=== PATIENT | female | born 1950 | race Caucasian/White ===

== ENCOUNTER → 2018-03-26 06:07 | Outpatient (CLI) | payer MEDICARE, MEDICAID, SELFPAY ==
--- NOTE | 2018-03-26 13:12 | STRESSREP ---
Stress Test Report Date: 03/26/2018 Procedure: Pharmacologic stress nuclear imaging study Indications: Paroxysmal atrial fibrillation Consent: Per the patient Procedure: The patient underwent pharmacologic (Regadenoson) evaluation with a peak heart rate of 84 beats per minute (54 predicted maximal heart rate) and a peak blood pressure of 150/90 mmHg. The baseline ECG demonstrated normal sinus rhythm. The peak pharmacologic ECG demonstrated no obvious ECG changes. There were no cardiac dysrhythmias pretest, during pharmacologic infusion, or recovery. There was no complaint of chest discomfort during pharmacologic infusion or recovery. The examination was discontinued secondary to completion of protocol. Impression: 1. Pharmacologic (Regadenoson) evaluation 2. Peak pharmacologic ECG with no obvious ECG changes. 3. There were no cardiac dysrhythmias pretest, during pharmacologic infusion, or recovery 4. Nuclear images pending Myocardial perfusion imaging study: Technique: The patient was injected with 14.6 millicuries of technetium 99m Cardiolite and subsequently rest SPECT Cardiolite nuclear imaging was obtained in the horizontal long, vertical long, and short axis views. The patient underwent pharmacologic (Regadenoson) evaluation with a peak heart rate of 84 beats per minute (54 % percent predicted maximal heart rate) and a peak blood pressure of 150/90 mmHg. The patient was injected with 45 millicuries of technetium 99m Cardiolite and subsequently stress SPECT Cardiolite nuclear imaging was obtained in the horizontal long, vertical long, and short axis views. A gated Cardiolite study at peak stress was obtained. Interpretation: Rest and stress SPECT Cardiolite nuclear imaging status post realignment, normalization, and attenuation correction demonstrate a small area of subtle diminished tracer uptake near the apical segments without significant change between rest and stress.. There is end systolic thickening and brightening. The gated Cardiolite study demonstrates myocardial thickening and inward wall motion. The reported LVEF is 74%. Impression: 1. Rest and stress SPECT Cardiolite nuclear imaging demonstrates a area of subtle diminished tracer uptake near the apical segments without significant change between rest and stress appearing compatible with physiologic apical thinning with no myocardial perfusion changes consider diagnostic for associated stress-induced myocardial ischemia or previous myocardial injury/infarction. 2. The gated Cardiolite study reports an LVEF of 74%. This note was generated with uromovie software. It may contain incorrect words, spelling, and punctuation that were not noted in checking the note before signing.
--- NOTE | 2018-03-26 13:29 | STRESSREP_ITS ---
Stress Test Report Date: 03/26/2018 Procedure: Pharmacologic stress nuclear imaging study Indications: Paroxysmal atrial fibrillation Consent: Per the patient Procedure: The patient underwent pharmacologic (Regadenoson) evaluation with a peak heart rate of 84 beats per minute (54 predicted maximal heart rate) and a peak blood pressure of 150/90 mmHg. The baseline ECG demonstrated normal sinus rhythm. The peak pharmacologic ECG demonstrated no obvious ECG changes. There were no cardiac dysrhythmias pretest, during pharmacologic infusion, or recovery. There was no complaint of chest discomfort during pharmacologic infusion or recovery. The examination was discontinued secondary to completion of protocol. Impression: 1. Pharmacologic (Regadenoson) evaluation 2. Peak pharmacologic ECG with no obvious ECG changes. 3. There were no cardiac dysrhythmias pretest, during pharmacologic infusion, or recovery 4. Nuclear images pending Myocardial perfusion imaging study: Technique: The patient was injected with 14.6 millicuries of technetium 99m Cardiolite and subsequently rest SPECT Cardiolite nuclear imaging was obtained in the horizontal long, vertical long, and short axis views. The patient underwent pharmacologic (Regadenoson) evaluation with a peak heart rate of 84 beats per minute (54 % percent predicted maximal heart rate) and a peak blood pressure of 150/90 mmHg. The patient was injected with 45 millicuries of technetium 99m Cardiolite and subsequently stress SPECT Cardiolite nuclear imaging was obtained in the horizontal long, vertical long, and short axis views. A gated Cardiolite study at peak stress was obtained. Interpretation: Rest and stress SPECT Cardiolite nuclear imaging status post realignment, normalization, and attenuation correction demonstrate a small area of subtle diminished tracer uptake near the apical segments without significant change between rest and stress.. There is end systolic thickening and brightening. The gated Cardiolite study demonstrates myocardial thickening and inward wall motion. The reported LVEF is 74%. Impression: 1. Rest and stress SPECT Cardiolite nuclear imaging demonstrates a area of subtle diminished tracer uptake near the apical segments without significant change between rest and stress appearing compatible with physiologic apical thinning with no myocardial perfusion changes consider diagnostic for associated stress-induced myocardial ischemia or previous myocardial injury/ infarction. 2. The gated Cardiolite study reports an LVEF of 74%. This note was generated with Neuropure software. It may contain incorrect words, spelling, and punctuation that were not noted in checking the note before signing.
== END ==
PROVIDERS: Family Provider Family Medicine; PCP Family Medicine; Visit Provider Internal Medicine Cardiovascular Disease
DX: Z01.810 Encounter for preprocedural cardiovascular examination (principal); Z01.818 Encounter for other preprocedural examination; I48.0 Paroxysmal atrial fibrillation
CPT/HCPCS: 78452; 93017; A9500; A4216; J2785

== ENCOUNTER → 2019-06-13 09:25 | Outpatient (CLI) | payer MEDICARE, MEDICAID, SELFPAY ==
[2019-06-13 10:53] LABS: AUTO B FLUID DILUENT BKGD CT WBC <0.1 RBC <0.01 (W<.1,R<.01); Appearance /Synovial Fluid Cloudy (CLEAR)
[2019-06-13 10:55] LABS: RBC /Synovial Fluid 0.023 10^6/uL (0)
[2019-06-13 10:57] LABS: Synovial Fld Mononuclear WBC # 1.948 10^3/ul; Synovial Fld Mononuclear WBC % 8.1 %; Synovial Fld Polynuclear WBC % 91.9 %
[2019-06-13 11:13] LABS: Body Fluid QC Type(s) BF3Q; Color / Synovial Fluid Yellow (Pale Yellow)
[2019-06-13 11:25] LABS: Lymph 3 %; Monocyte /Synovial Fluid 5 %; Neutrophil 92 % (0-25)
[2019-06-14 15:29] LABS: Pathologist Comment Reviewed
== END ==
PROVIDERS: Family Provider Nurse Practitioner Family; PCP Nurse Practitioner Family; Referring Provider Specialist; Visit Provider Specialist
DX: T84.84XA Pain due to internal orthopedic prosthetic devices, implants and grafts, initial encounter (principal)
CPT/HCPCS: 87070; 87075; 87205; 89050; 89051

== ENCOUNTER 2019-07-06 09:50 | Inpatient (IN) | payer MEDICARE, MEDICAID, SELFPAY ==
[2019-06-22 10:14] VITALS: BP 133/66; PULSE 48; RESP 16; TEMP 36.1; O2SAT 100; BMI 33.4
[2019-06-22 12:45] LABS: International Normalized Ratio 1.9; Prothrombin Time (Protime)PT. 22.1 SECONDS (11.7-14.9)
[2019-06-22 12:46] LABS: Partial Thromboplast Time 58.1 Seconds (24.1-36.2)
[2019-06-22 12:53] LABS: AST(SGOT) 12 U/L (15-37); Alanine Aminotransfer ALT/SGPT 12 U/L (13-56); Albumin, Serum 3.3 g/dL (3.2-5.0); Alkaline Phosphatase 108 U/L (45-117); Anion Gap 8 (5-15); BUN 20 mg/dL (7-18); BUN/Creat Ratio 26.6 RATIO (10-20); Calcium,Total 9.4 mg/dL (8.5-10.1); Chloride 106 mmol/L (98-107); Creatinine, Serum 0.75 mg/dL (0.55-1.02); EST Glomerular Filtration Rate 81 mL/min (>60); Est Glom Filt Rate - Afr Amer 98 mL/min (>60); Estimated Creatinine Clearance 50.41 ml/min; Globulin 4.5 g/dL (2.2-4.2); Glucose 92 mg/dL (74-106); Potassium 4.3 mmol/L (3.5-5.1); Protein, Total 7.8 g/dL (6.4-8.2); Sodium Level 142 mmol/L (136-145)
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
[2019-07-06] VITALS (14 sets, daily range): BP systolic 81–146; BP diastolic 47–76; PULSE 54–66; RESP 16–18; TEMP 36.2–37.3; O2SAT 97–100; BMI 33.4
[2019-07-06] MEDS: Gabapentin 600 MG Tablet PO (10:41)
[2019-07-06] MEDS: Acetaminophen 500 MG Tablet 1000 MG PO ×2 (10:41→20:40)
[2019-07-06] MEDS: Scopolamine 1mg/72hr Patch 1 PATCH TRANSDERM. (10:43)
[2019-07-06 10:55] LABS: Bedside Glucose 94 mg/dL (70-110)
[2019-07-06] MEDS: Magnesium Sulfate 4gm/100mL 4 GM/100 ML IV.SOLN. IV (11:00)
[2019-07-06] MEDS: Lactated Ringers 1,000 ML 100 ML IV (11:03)
[2019-07-06 12:18] LABS: International Normalized Ratio 1.1; Prothrombin Time (Protime)PT. 14.2 SECONDS (11.7-14.9)
[2019-07-06] MEDS: Cefazolin 2 GM in 0.9% Normal Saline 100 ML IV (12:44)
[2019-07-06] MEDS: Vancomycin IV 1,000 MG/20 ML Vial 6000 MG OPERA.SITE (14:43)
[2019-07-06] MEDS: Cefazolin 1 GM/5 ML Vial 2 GM OPERA.SITE (14:43)
--- NOTE | 2019-07-06 15:15 | OP.PCM_ITS ---
Report of Operation Date of Procedure: 07/06/19 Pre-Operative Diagnosis: Infected left total knee replacement Post-Operative Diagnosis: Infected left total knee replacement Surgery/Procedure Performed:: Explant left total knee with placement of articulating antibiotic spacer. Placement of nonbiodegradable antibiotic delivery system left knee Description of Surgical Findings:: Articulating spacer was placed. Intraoperatively there was florid synovitis with cloudy fluid consistent with purulence pier master assistant: Adam Marie Type of Anesthesia:: Spinal Anesthesiologist: Hardik Palafox Special Medications: 2 g Ancef Specimen's removed: 3 separate specimens were sent to microbiology Estimated Blood Loss (mL): 150 Fluids Replaced: 1800 mL crystalloid Description of Procedure: 68-year-old female with previous left total knee replacement. Patient presented to my office with x-rays consistent with gross loosening of the tibia. Blood work was checked the patient's ESR and CRP are elevated. Aspiration was performed showing 18,000 white blood cells with 92% PMNs with cloudy fluid. Based on this patient met 3 out of 5 MSIS criteria for infection despite having a negative culture. Based on these criteria I did recommend a two-stage r evision of the knee. Risks and benefits were discussed the patient including but not limited to blood loss, DVTs, PEs, neurovascular damage, infection, general risk of anesthesia including loss of life, arthrofibrosis and need for multiple debridements. Patient never stated understanding was able to sign informed consent. On there is procedure patient's left knee was marked in the preoperative area. Patient was brought back to the operating room with her transfer the table in the supine position. Anesthesia assumed control of the C-spine and airway. Patient was set up for a spinal after the spine was completed placed back in the supine position and all bony prominences were identified and well-padded. A bump was placed under the left hip and tourniquet was placed in the left upper t high. Anesthesia remained in control of the C-spine airway throughout the remainder the procedure. Left lower externally was then prepped in a sterile fashion with surgeon scrubbed. Upon reentering the room the left lower extremity was draped in sterile fashion a timeout was called. Everyone agreed upon the side, the site, the procedure to be performed, patient's identity and antibiotics given. Once this was completed Esmarch bandage was used to exsanguinate the extremity and tourniquet was placed at the 250 mmHg. Using the previous incision and extending 1 cm proximally distally the exposure was made. Sharp dissection was taken out the skin subtenons tissues. Bovie dissection was used to help raise medial lateral flaps appropriately. Once we identified the previous arthrotomy due to nonabsorbable sutures a standard medial parapatellar arthrotomy was made. Upon entering the joint patient had cloudy fluid and florid synovitis. We started by performing a aggressive synovectomy. Starting in the lateral compartment in the suprapatellar pouch the medial compartment. Once we had performed our initial complete synovectomy he was flexed up and osteotome was used to remove the polyethylene. Once the polyethylene was removed we are able to complete medial lateral gutter synovectomies. Knee was flexed up and osteotomes and TPS saw were used to sequentially break up the bone cement interface of the femur and the femoral component was removed. Once this was completed we may clean up cuts on the distal femur and removed all excess cement. Once this was done we directed our attention to the tibia. The tibia was grossly loose and easily removed using an osteotome. Once the tibia was removed membrane was removed and the proximal tibia cleanup cut was made. We then used a bur and curet to debride the remainder of the membrane from around the keel. Once a cleanup cut was made the alignment was checked and found to be appropriate. New was then placed in extension and using a lamina computer video game designer both extension and flexion we were able to debride the remainder of the synovium in the posterior knee. Once this was completed the knee was placed in extension and saw was used to remove the patella button. The bur was removed to use the patella pegs. Once this was completed we again directed our attention back to the tibia and femur and reamed the canal to 15 mm. Once this was completed my physician academic support assistant irrigated out the wound with 6 L of normal saline with low-pressure lavage while I made cement dowels for the femur and tibia. These dowels contained one third of the antibiotics for the cement. (Total antibiotics was 4.8 g tobramycin, 6 g vancomycin and 2 g Ancef). The dowel was then placed on the back table and allowed to cure. Once this was completed we then trialed for the antibiotic spacer. A size 6 femur was selected as this was removed and a size 4 tibia was selected as this for the tibia the best. We trialed up to a size 19 mm CR poly- which gave us a good fit in flexion and extension. The polyethylene was open and the backside was burred making Esmarch for the cement. The femoral component was then opened. Once this was completed a second back to cement with the remainder of the antibiotics was mixed in order to fix the components in place. The dowels were placed in the canal after the tourniquet was let down hemostasis was obtained using aqua Sergio coagulation. Knee was then flexed up and the tibia was cemented into place over the dowel which was in the canal and then the femur was cemented into place over the dialysis in the canal. Excess cement was removed and he was placed in extension for the cement cured. Once the cement cured with the knee in extension a lateral drain was placed. Once this drain was placed PDS suture was used to close the arthrotomy. 2-0 Vicryl was used to close the skin final skin closure was done with jalen. Sterile compressive dressing was placed. Patient was placed in a knee immobilizer and then awakened by anesthesia. Patient was then transferred to the PACU in stable condition. Postop plan: Infectious disease will be consulted. Patient was placed on Ancef overnight. She will spend 6 weeks on IV antibiotics at which time we will place her on antibiotic holiday and if it appears the infection is cleared we will proceed with replantation of a new knee replacement. Patient will remain in the knee immobilizer for 2 weeks. At her 2-week postop visit she is doing well with her wound healing we will begin range of motion exercises. She will remain toe- touch weightbearing for 2 weeks and partial weightbearing 50% after that until the new knee is completed. My physician academic support assistant was a vital part of this case. He was important in appropriate retraction during the case, and protection of soft tissues during bony cuts. His intimate knowledge of the case and my steps aided in safe and expedient completion of the procedure as well as appropriate position of the leg during the case. He was also vital in assisting with closure under my direct supervision. Grafts/Implants Used: An: Triathlon size 6 distal femur, 4 x 19 mm CR polyethylene tibia - Complications No intraoperative complications - Admit VTE Documentation VTE Present on Admission: No VTE Mechan Device Prophylaxis: SCD's, Thigh High YOLANDA Hose VTE Pharm Prophylaxis ordered?: Yes
[2019-07-06] MEDS: Lactated Ringers 1,000 ML 999 ML IV (15:43)
--- NOTE | 2019-07-06 16:00 | RAD_ITS ---
STUDY: X-RAY - LEFT KNEE REASON FOR EXAM: Female, 68 years old. Postop evaluation of total knee replacement. TECHNIQUE: 3 view(s) of the knee. COMPARISON: None. FINDINGS: Status post total knee arthroplasty revision. The femoral and tibial components are located with no periprosthetic abnormalities. The patella has been resurfaced and is normally located. Normal postoperative soft tissue changes. 1 surgical drain at the operative site. Skin incision closed with jalen. RAD/Knee 1 or 2 Views IMPRESSION: Status post total knee arthroplasty revision with no untoward bone, joint or hardware findings. Electronically Signed: May Mejía MD at 16:44 EDT , Service support ,
[2019-07-06] MEDS: Lactated Ringers 1,000 ML 125 ML IV ×2 (16:26→18:19)
[2019-07-06 16:31] LABS: Prothrombin Time Fingerstick 27.5 SEC (11.9-14.4)
[2019-07-06] MEDS: Ketorolac 15 MG/ML Vial IV (18:18)
[2019-07-06] MEDS: oxyCODONE 5 MG Tablet PO (20:15)
[2019-07-06] MEDS: Cefazolin 1 GM/50 ML BAG IV (20:15)
[2019-07-06] MEDS: Senna/Docusate Sodium 1 Tablet 2 TABLET PO (20:39)
[2019-07-06] MEDS: Sotalol Hydrochloride 80 MG Tablet PO (20:39)
[2019-07-06] MEDS: cycloBENZAPRine HCl 5 MG TABLET 10 MG PO (20:40)
[2019-07-06] MEDS: Sertraline 50 MG Tablet PO (20:41)
[2019-07-07] MEDS: oxyCODONE 5 MG Tablet PO ×2 (00:22→20:08)
[2019-07-07 03:22] VITALS: BP 109/53; PULSE 61; RESP 16; TEMP 36.4; O2SAT 98
[2019-07-07 03:30] VITALS: PULSE 61
[2019-07-07] MEDS: Cefazolin 1 GM/50 ML BAG IV (04:36)
[2019-07-07] MEDS: Acetaminophen 500 MG Tablet 1000 MG PO ×3 (05:41→20:07)
[2019-07-07] MEDS: 0.9% NaCl Peripheral Flush Adult/Peds IV ×3 (05:41→11:58)
[2019-07-07] MEDS: Ketorolac 15 MG/ML Vial IV ×2 (05:41→11:58)
[2019-07-07 05:48] LABS: Hematocrit 30.2 % (37-47); Hemoglobin 9.1 g/dL (12.0-15.0); Mean Corp Hgb Conc 30.1 g/dL (32-36); Mean Corpuscular Hgb 26.1 pg (27.0-32.0); Mean Corpuscular Volume 86.5 fL (81-99); Mean Platelet Vol. 9.4 fl (6.2-12.0); Platelet Count 193 K/mm3 (150-450); RBC Distribution Width CV 15.7 % (11.6-14.6); RBC Distribution Width SD 49.2 fl (35.1-43.9); Red Blood Count 3.49 M/mm3 (4.2-5.4); White Blood Count 7.2 K/mm3 (4.4-11.0)
[2019-07-07 06:30] LABS: Anion Gap 7 (5-15); BUN 12 mg/dL (7-18); BUN/Creat Ratio 18.5 RATIO (10-20); Calcium,Total 7.8 mg/dL (8.5-10.1); Chloride 107 mmol/L (98-107); Creatinine, Serum 0.65 mg/dL (0.55-1.02); EST Glomerular Filtration Rate 96 mL/min (>60); Est Glom Filt Rate - Afr Amer 117 mL/min (>60); Estimated Creatinine Clearance 50.41 ml/min; Glucose 124 mg/dL (74-106); Potassium 4.4 mmol/L (3.5-5.1); Sodium Level 142 mmol/L (136-145)
--- NOTE | 2019-07-07 08:15 | PCM.PN.ORT ---
Subjective: The patient was sitting in bedside chair upon examination. Patient denies any chest pain, shortness of breath, dizziness, lightheadedness, nausea or vomiting, or calf pain. Pain is controlled on medications. No adverse overnight events. Patient is very pleased with outcome of surgery at this point. Her pain is very well controlled. Patient has been tolerating the knee immobilizer. She does have Hemovac drain with output of 570 mL. Consult has been placed for infectious disease for 6 weeks IV antibiotics. Objective: Vital signs stable and afebrile. Patient is able to plantarflex and dorsiflex actively. Sensation is intact to light touch to saphenous, sural, superficial and deep peroneal, and tibial distribution. Dressing is clean dry and intact. Hemovac drain in place: No current output. Patient has had 570 mL output since yesterday Negative Homans bilaterally, negative signs and symptoms of DVT. - Physical Exam General: Alert, Oriented x3, Cooperative, No apparent distress Vital Signs Temp Pulse Resp BP Pulse Ox 97.5 F L 61 16 109/53 L 98 07/07/19 03:22 07/07/19 03:30 07/07/19 03:22 07/07/19 03:22 07/07/19 03:22 Oxygen Flow Rate (L/min) 6 Oxygen Delivery Method Room Air Weight: 94 kg Body Mass Index (BMI) 33.4 Intake and Output for Last 24 Hours 07/05/19 07/06/19 07/07/19 23:59 23:59 23:59 Intake Total 2737.09 / 3417.09 1486.08 / 1486.08 Output Total 250 / 1150 2230 / 2230 Balance 2487.09 / 2267.09 -743.92 / -743.92 Laboratory Tests Past 24 Hrs 07/06/19 07/06/19 07/07/19 11:45 12:00 05:25 WBC 7.2 RBC 3.49 L Hgb 9.1 L Hct 30.2 L MCV 86.5 MCH 26.1 L MCHC 30.1 L RDW Std Deviation 49.2 H RDW Coeff of Pat 15.7 H Plt Count 193 MPV 9.4 POC PT 27.5 H PT 14.2 INR 1.90 1.1 Sodium Potassium Chloride Carbon Dioxide Anion Gap BUN Creatinine Estim Creat Clear Calc Est GFR (MDRD) Af Amer Est GFR (MDRD) Non-Af BUN/Creatinine Ratio Glucose Calcium 07/07/19 05:25 WBC RBC Hgb Hct MCV MCH MCHC RDW Std Deviation RDW Coeff of Pat Plt Count MPV POC PT PT INR Sodium 142 Potassium 4.4 Chloride 107 Carbon Dioxide 28.0 Anion Gap 7 BUN 12 Creatinine 0.65 Estim Creat Clear Calc 50.41 Est GFR (MDRD) Af Amer 117 Est GFR (MDRD) Non-Af 96 BUN/Creatinine Ratio 18.5 Glucose 124 H Calcium 7.8 L POC Glucose 07/06/19 10:36 POC Glucose 94 Medical Necessity - Tobacco Use Smoking Status: Never smoker Tobacco Use: Non-smoker Assessment/Plan 1. S/P explant left total knee with placement of articulating antibiotic spacer POD #1 2. Continue Pain Medications: Tylenol and OxyIR 3. DVT Prophylaxis: Patient has been placed back on her Xarelto. Patient has underlying atrial fibrillation and takes 20 mg Xarelto daily 4. PT/OT: Patient will remain toe-touch weightbearing for 2 weeks with knee immobilizer. Okay to loosen knee immobilizer while at rest. We will begin partial weightbearing 50% after 2 weeks. 5. H & H: 9.1/30.2, asymptomatic 6. Encouraged Incentive Spirometry 7. Infectious disease consult: Plan will be for 6 weeks IV antibiotics followed by 2-week antibiotic holiday. Patient will require placement of PICC line. 8. Continue postoperative medical management per medicine 9. Continue with Hemovac drain: Plan will be for possible removal tomorrow. Current output 570 mL since yesterday. 10. Disposition: Patient does wish to try to go home upon discharge. Patient will most likely require home health care for antibiotics for the next 6 weeks. Case management will be involved with appropriate discharge planning.
[2019-07-07 08:34] VITALS: BP 118/45; PULSE 63; RESP 16; TEMP 36.6; O2SAT 98
[2019-07-07] MEDS: Senna/Docusate Sodium 1 Tablet 2 TABLET PO (08:50)
[2019-07-07] MEDS: Sotalol Hydrochloride 80 MG Tablet PO ×2 (08:50→20:09)
[2019-07-07] MEDS: Famotidine 20 MG Tablet PO (08:50)
--- NOTE | 2019-07-07 08:52 | NURSING ---
Addendum entered by Brit Crowe 07/07/19 16:08: same completed this AM. Original Note: pt requesting to have scop patch removed this morning. denies any nausea at all since arrival.
--- NOTE | 2019-07-07 09:29 | PCA ---
pt cleaned up last night pt is joint camp pt
--- NOTE | 2019-07-07 10:34 | PCM.HP.ID ---
Problem List (1) Infection of prosthetic left knee joint Status: Acute Reason for Consult: PJI Consulted by: Dr. Clements History of Present Illness: The patient is a 68 year old F with L knee replacement a year ago at [facility], had chronic, progressive pain and swelling ever since then. Incision healed well. No redness. No recent abx. Had 2-3 episodes of chills, sweats in past few weeks. Pain worsened with PT. Saw ortho here for 2nd opinion, xray and aspiration done. Taken to OR 07/[address] Clements for spacer placement. Pain controlled, feeling ok. Full ROS performed and neg except as noted above. - Medical History Allergies/Adverse Reactions: Allergies diazepam [From Valium] Allergy (Verified 06/22/19 10:02) Other PARANOIA latex Allergy (Verified 06/22/19 10:02) Rash lisinopril Allergy (Verified 06/22/19 10:02) Anaphylaxis morphine Allergy (Verified 06/22/19 10:02) Rash Home Medications: Ambulatory Orders Medication Instructions Recorded Jordan/D3/Mag11/Zinc/Development Technician/Nilton/Bor 1 ea PO DAILY 06/22/19 [Caltrate 600+D Plus Tablet] Cyclobenzaprine HCl 10 mg PO QHS 06/22/19 Hydrochlorothiazide [Hctz] 25 mg PO QODAY 06/22/19 Lutein 6 mg PO DAILY 06/22/19 Potassium Chloride 10 meq PO DAILY 06/22/19 Rivaroxaban [Xarelto] 20 mg PO DAILY 06/22/19 Sertraline HCl [Zoloft] 50 mg PO DAILY 06/22/19 Sotalol HCl [Sotalol] 80 mg PO BID 06/22/19 traMADol [Ultram (G)] 50 mg PO Q6H PRN PRN 06/22/19 Ceftriaxone 2 gm IV Q24 40 Days #40 vial 07/07/19 Vancomycin/0.9 % Sod Chloride 1.5 gm IV Q12H 40 Days #80 07/07/19 [Vanco 1.5 gm/250 ml-0.9% NaCl] plast..bag - Social History Tobacco Use: non-smoker Drug Use: none Vital Signs Temp Pulse Resp BP Pulse Ox 98 F 63 16 118/45 L 98 07/07/19 08:34 07/07/19 08:34 07/07/19 08:34 07/07/19 08:34 07/07/19 08:34 Oxygen Flow Rate (L/min) 6 Oxygen Delivery Method Room Air Weight: 94 kg Body Mass Index (BMI) 33.4 Microbiology Past 72 Hours 07/06/19 15:44 Gram Stain - Final Tissue - Knee 07/06/19 15:44 Gram Stain - Final Tissue - Knee 07/06/19 15:44 Gram Stain - Final Tissue - Knee Laboratory Tests Past 24 Hrs 07/06/19 07/06/19 07/07/19 11:45 12:00 05:25 WBC 7.2 RBC 3.49 L Hgb 9.1 L Hct 30.2 L MCV 86.5 MCH 26.1 L MCHC 30.1 L RDW Std Deviation 49.2 H RDW Coeff of Pat 15.7 H Plt Count 193 MPV 9.4 POC PT 27.5 H PT 14.2 INR 1.90 1.1 Sodium Potassium Chloride Carbon Dioxide Anion Gap BUN Creatinine Estim Creat Clear Calc Est GFR (MDRD) Af Amer Est GFR (MDRD) Non-Af BUN/Creatinine Ratio Glucose Calcium 07/07/19 05:25 WBC RBC Hgb Hct MCV MCH MCHC RDW Std Deviation RDW Coeff of Pat Plt Count MPV POC PT PT INR Sodium 142 Potassium 4.4 Chloride 107 Carbon Dioxide 28.0 Anion Gap 7 BUN 12 Creatinine 0.65 Estim Creat Clear Calc 50.41 Est GFR (MDRD) Af Amer 117 Est GFR (MDRD) Non-Af 96 BUN/Creatinine Ratio 18.5 Glucose 124 H Calcium 7.8 L - Other Studies Radiology: [] reviewed Other Studies: [] Route of nutrition/ use of supplements: [] Nutritional Intake: [] IV Site: [] Valentin Catheter: [] - Physical Exam General: Alert, Oriented x3, Cooperative, No apparent distress HEENT: Atraumatic, PERRLA, EOMI Neck: Supple, No Nodes Lungs: Clear to auscultation, Normal air movement Cardiovascular: Regular rate, Regular Rhythm, No murmurs Abdomen: Soft, Non Tender, Non-Distended Skin: Incision - LLE wrapped IV Site: Peripheral, without redness Musculoskeletal: No Tenderness to Palpation of Joints or Extremities Neurological: Cranial nerves II-XII grossly intact - Assessment/Plan Antibiotics: [] Assessment/Plan: [] L knee PJI - now s/p spacer placement by Dr. Clements 07/06. Aspiration on 06/13 with 92% neutrophils but negative cx. Surg cx pending here. Will order picc, and write for 6 weeks of iv vanc/ceftriaxone, stop date 08/17/19 with weekly bmp, cbc, esr, and vanc trough. If cxs turn (+), will narrow abx coverage. Will follow, d/w clinical case manager today and Dr. Clements yesterday. Thank you.
--- NOTE | 2019-07-07 10:46 | PCM.RX.CS ---
Consult Pharmacy has been consulted to manage selected antiobiotic: Vancomycin Type of Consult: New start Suspected Infection: Other Prior Doses of Antibiotics Received/Current Regimen: NONE Labs: Sodium 142 mmol/L (136-145) 07/07/19 05:25 Potassium 4.4 mmol/L (3.5-5.1) 07/07/19 05:25 Chloride 107 mmol/L (98-107) 07/07/19 05:25 Carbon Dioxide 28.0 mmol/L (21.0-32.0) 07/07/19 05:25 7 (5-15) 07/07/19 05:25 BUN 12 mg/dL (7-18) 07/07/19 05:25 0.65 mg/dL (0.55-1.02) 07/07/19 05:25 Est GFR (MDRD) Af Amer 117 mL/min (>60) 07/07/19 05:25 Est GFR (MDRD) Non-Af 96 mL/min (>60) 07/07/19 05:25 18.5 RATIO (10-20) 07/07/19 05:25 Glucose 124 mg/dL (74-106) H 07/07/19 05:25 Microbiology: Microbiology 07/06/19 15:44 Tissue - Knee Gram Stain - Final 07/06/19 15:44 Tissue - Knee Gram Stain - Final 07/06/19 15:44 Tissue - Knee Gram Stain - Final 06/22/19 11:00 Swab (Method) Nasal Screen MRSA/MSSA - Final Weight used for dosin kg Estimated Creatinine Clearance: 50 ML/MIN Goal Trough: 15-20 mcg/mL Pharmacy Plan for Drug Dosing: PLAN/RECOMMENDATIONS 1. Vancomycin loading dose 2000mg IV x1 07/07/19 @1100 2. Vancomycin 1000mg IV Q12hrs 07/07/19 @2300 3. Trough prior to 4th total vancomycin dose per protocol 07/08/19 @2230 4. Pharmacy Service will continue to monitor and adjust dosing as required.
[2019-07-07] MEDS: 0.9% NaCl IVPB Med Flush (250 mL) 15 ML IV (10:53)
--- NOTE | 2019-07-07 10:54 | PCM.PN.HOSP ---
Patient Problems: Active and Suspected Problems Infection of prosthetic left knee joint (Acute) Subjective: Consult for post-op medical management: 68-year-old female with past medical history of hypertension, paroxysmal atrial fibrillation who had a total left knee arthroplasty done in 2018 but subsequently have had pain on ambulation with some instability. Patient was seen by Dr. Clements and underwent an explant left total knee arthroplasty with placement of antibiotic spacer. Today is postop day 1. She denied any fever or chills. Her pain is controlled. Denied any chest pain or dizziness or palpitations. She is on IV ceftriaxone and vancomycin. Infectious disease has been consulted. There is a plan for PICC line with 6 weeks of IV antibiotics. Vitals/I&O's: Vital Signs Temp Pulse Resp BP Pulse Ox 98 F 63 16 118/45 L 98 07/07/19 08:34 07/07/19 08:34 07/07/19 08:34 07/07/19 08:34 07/07/19 08:34 Oxygen Flow Rate (L/min) 6 Oxygen Delivery Method Room Air Weight: 94 kg Body Mass Index (BMI) 33.4 Intake and Output for Last 24 Hours 07/05/19 07/06/19 07/07/19 23:59 23:59 23:59 Intake Total 2737.09 / 3417.09 1486.08 / 1486.08 Output Total 250 / 1150 2230 / 2230 Balance 2487.09 / 2267.09 -743.92 / -743.92 General: Alert, Oriented x3, Cooperative, No apparent distress HEENT: Atraumatic, PERRLA, EOMI, Normocephalic Oral: Moist Mucosa Neck: Supple Lungs: Clear to auscultation, Normal air movement Cardiovascular: Regular rate, Regular Rhythm, Normal S1, Normal S2, No murmurs Abdomen: Bowel Sounds Present, Soft, Non Tender, Non-Distended, No Hepato-splenomegaly Extremities: Edema - bilateral pedal edema +1, - - Left leg immobiliser, ice pack in place Skin: No rashes, No breakdown Musculoskeletal: No Tenderness to Palpation of Joints or Extremities Lymphatic: No Cervical, Supraclavicular, or Inguinal Adenopathy Neurological: Cranial nerves II-XII grossly intact, Neuro grossly intact Psych/Mental Status: Normal Affect, Appropriate Microbiology Past 72 Hours 07/06/19 15:44 Tissue - Knee Gram Stain - Final 07/06/19 15:44 Tissue - Knee Gram Stain - Final 07/06/19 15:44 Tissue - Knee Gram Stain - Final Laboratory Results 07/06/19 10:36: POC Glucose 94 07/06/19 11:45: POC PT 27.5 H, INR 1.90 07/06/19 12:00: PT 14.2, INR 1.1 07/07/19 05:25: WBC 7.2, RBC 3.49 L, Hgb 9.1 L, Hct 30.2 L, MCV 86.5, MCH 26.1 L, MCHC 30.1 L, RDW Std Deviation 49.2 H, RDW Coeff of Pat 15.7 H, Plt Count 193, MPV 9.4 07/07/19 05:25: Sodium 142, Potassium 4.4, Chloride 107, Carbon Dioxide 28.0, Anion Gap 7, BUN 12, Creatinine 0.65, Estim Creat Clear Calc 50.41, Est GFR (MDRD) Af Amer 117, Est GFR (MDRD) Non-Af 96, BUN/Creatinine Ratio 18.5, Glucose 124 H, Calcium 7.8 L Current Medications Acetaminophen (Tylenol) 1,000 mg PO Q8 [facility] Last Admin: 07/07/19 05:41 Dose: 1,000 mg Documented by: Cyclobenzaprine HCl (Cyclobenzaprine Hcl) 10 mg PO QHS [facility] Last Admin: 07/06/19 20:40 Dose: 10 mg Documented by: Famotidine (Pepcid) 20 mg PO DAILY [facility] Last Admin: 07/07/19 08:50 Dose: 20 mg Documented by: Hydrochlorothiazide (Hctz) 25 mg PO QODAY [facility] Hydromorphone HCl (Dilaudid Inj) 0.5 mg IV Q2H PRN PRN PRN Reason: SEVERE PAIN (6-10/10) Sodium Chloride () 250 mls @ 15 mls/hr IV .[id number] PRN PRN Reason: SALINE FLUSH Ceftriaxone Sodium 2 gm/ (Sodium Chloride) 50 mls @ 100 mls/hr IV Q24 [facility] Vancomycin IV Pharmacy to Dose (1 ea/ Sodium Chloride) 500 mls @ 250 mls/hr IV PRN PRN; Protocol PRN Reason: Rx to Dose Vancomycin HCl (Vancomycin) 1,000 mg in 200 mls @ 200 mls/hr IV Q12H [facility] Vancomycin HCl 2,000 mg/ (Sodium Chloride) 540 mls @ 250 mls/hr IV X1 ONE Stop: 07/07/19 13:09 Insulin Human Lispro (Humalog Kwikpen (Bkc)) 1 - 6 unit SC Q4H PRN PRN; Protocol PRN Reason: BG>/= 180, SEE PROTOCOL Ketorolac Tromethamine (Toradol) 15 mg IV Q6H PRN PRN PRN Reason: MILD-MOD PAIN (1-03/11) Stop: 07/08/19 15:13 Last Admin: 07/07/19 05:41 Dose: 15 mg Documented by: Ondansetron HCl (Zofran) 4 mg IV Q8H PRN PRN PRN Reason: NAUSEA Oxycodone HCl (Oxyir) 5 - 10 mg PO Q4H PRN PRN PRN Reason: MOD-SEVERE PAIN (-08/11) Last Admin: 07/07/19 00:22 Dose: 5 mg Documented by: Potassium Chloride (K-Dur) 10 meq PO DAILY [facility] Last Admin: 07/07/19 08:50 Dose: 10 meq Documented by: Promethazine HCl (Phenergan) 12.5 mg IM Q6H PRN PRN; Protocol PRN Reason: NAUSEA/VOMITING Rivaroxaban (Xarelto) 20 mg PO DAILY@1700 [facility] Senna/Docusate Sodium (Senokot-S, Linda-Colace) 2 tablet PO BID [facility] Last Admin: 07/07/19 08:50 Dose: 2 tablet Documented by: Sertraline HCl (Zoloft) 50 mg PO QHS [facility] Last Admin: 07/06/19 20:41 Dose: 50 mg Documented by: Sodium Chloride () 10 - 40 ml IV UD PRN PRN Reason: SALINE FLUSH Last Admin: 07/07/19 05:41 Dose: 10 ml Documented by: Sotalol HCl (Betapace (G)) 80 mg PO BID [facility] Last Admin: 07/07/19 08:50 Dose: 80 mg Documented by: Medical Necessity - Tobacco Use Smoking Status: Never smoker Tobacco Use: Non-smoker Assessment/Plan All Active Problems Infection of prosthetic left knee joint (Acute) 68-year-old female with past medical history of hypertension, paroxysmal atrial fibrillation who had a total left knee arthroplasty done in 2018 but subsequently had pain on ambulation with some instability. Patient underwent an explant left total knee arthroplasty with placement of antibiotic spacer done on 07/06/19. 1. POD #1, status post explant left total knee arthroplasty with placement of antibiotic spacer, for infected left total knee arthroplasty. Patient is on IV ceftriaxone and vancomycin. Preoperative wound cultures are pending. Pain is fairly controlled, ID consulted. Plan is for IV antibiotics in the outpatient 2. Hypertension, controlled, on HCTZ 3. Paroxysmal atrial fibrillation, on sotalol, Xarelto 4. DVT PPx - on Xarelto Code Visit Inpatient E&M: 43910 Subs Hosp L2
--- NOTE | 2019-07-07 13:30 | CASEMGMT ---
YU PATRICIA Face to Face with patient for initial transition planning/care coordination assessment. YU PATRICIA introduced self and role at [facility]. Patient lying in bed, alert and oriented, significant other at bedside. Patient willing to participate in assessment and is able to answer all questions appropriately. Care providers, pharmacy, and demographics verified. Patient wishes to discharge home with HHC to assist with IV ATBs and therapy. YU PATRICIA provided patient with list of HHC company to review. Patient states she has no further needs or concerns at this time. CM to follow for discharge planning needs that may arise. PCP: Carlota Delgadillo LIVESTOCK COUNTER Specialists: alba Clements; Lizzy plaster and stucco worker Preferred Pharmacy: [facility] Insurance: Where I've Been Prescription Benefit: [employer] Living Will/HPOA: None, declined additional information LNOK: significant other, daughter Living Arrangements: Patient lives with daughter and significant other in mobile home with ramp to enter the home. Transportation: significant other, daughter DME/HHC: Patient states she has shower chair, BSC, and walker at home. YU PATRICIA to follow-up with patient with preferences for HHC and infusion companies, list provided. Disposition Plan: Patient to discharge home with HHC, family support, and follow-up plans in place. Nuha ADAMSON, RN, CM
--- NOTE | 2019-07-07 13:33 | RAD_ITS ---
STUDY: X-RAY CHEST REASON FOR EXAM: Female, 68 years old. PICC line placement. TECHNIQUE: Single AP portable view of the chest. COMPARISON: None. FINDINGS: A right-sided PICC line catheter as been placed. The tip is at the junction of the superior vena cava and right atrium. The lungs are clear and expanded. There is no demonstrated pleural abnormality. Normal size heart. Normal mediastinum and claudio. Normal visualized pulmonary arteries. Normal visualized aortic arch and descending thoracic aorta. There are diffuse degenerative changes of the visualized thoracic spine. Mild levoscoliosis. Normal visualized ribs, clavicles, and shoulders. There is no demonstrated abnormality of the visualized soft tissue structures of the upper abdomen. RAD/Chest 1 View (Portable) IMPRESSION: The tip of the PICC line catheter is at the junction of the superior vena cava and right atrium. Electronically Signed: Lul Pabon, at 14:25 EDT , Service support ,
--- NOTE | 2019-07-07 13:47 | NURSING ---
aware per tobacco classer- RN ok to use PICC
[2019-07-07 14:28] VITALS: BP 122/58; PULSE 64; RESP 16; TEMP 37.1; O2SAT 99
--- NOTE | 2019-07-07 15:00 | CASEMGMT ---
YU PATRICIA in to discuss preferences for [facility] with patient. First choice is Located within [facility], then [place] and [facility]. Patient would like I for infusion company. YU PATRICIA will send referral and assist with discharge planning.
--- NOTE | 2019-07-07 15:40 | CASEMGMT ---
Addendum entered by Blaine Shepard 07/07/19 16:24: Call received from Ita @ [facility] ([phone]). Pt's copay will be $146.80/week and [facility] will call pt to notify and secure payment. Original Note: YU PATRICIA Note: Pt agreeable to Home Health for IV antibiotics. Choices given-[facility] for infusion company and choices for [facility] was 1. [employer]- referral faxed to . Call to Nadya @ [employer] who will review referral. choice 2- [facility]- cannot accept referral choice 3-[facility]- cannot accept referral. Referral also faxed to I @ Karena ADAMSON RN [facility]
[2019-07-07] MEDS: Rivaroxaban 20 MG Tablet PO (17:23)
[2019-07-07 19:58] VITALS: BP 128/54; PULSE 78; RESP 16; TEMP 36.7; O2SAT 98
[2019-07-07] MEDS: cycloBENZAPRine HCl 5 MG TABLET 10 MG PO (20:08)
[2019-07-07] MEDS: Sertraline 50 MG Tablet PO (20:10)
[2019-07-07] MEDS: Vancomycin IV 1,000 MG/200 ML BAG 200 MG IV (22:57)
[2019-07-07] MEDS: HYDROmorphone 0.5 MG/0.5 ML SYRINGE IV (22:57)
[2019-07-08] MEDS: oxyCODONE 5 MG Tablet PO ×4 (01:38→21:41)
[2019-07-08 01:45] VITALS: BP 133/61; PULSE 78; RESP 18; TEMP 36.9; O2SAT 97
[2019-07-08] MEDS: 0.9% NaCl Peripheral Flush Adult/Peds IV (06:39)
[2019-07-08] MEDS: Acetaminophen 500 MG Tablet 1000 MG PO ×3 (06:48→21:36)
--- NOTE | 2019-07-08 06:59 | NURSING ---
DAKOTA Tran in to see pt. Hemovac d/c at this time.
[2019-07-08 07:02] LABS: Hematocrit 28.4 % (37-47); Hemoglobin 8.5 g/dL (12.0-15.0); Mean Corp Hgb Conc 29.9 g/dL (32-36); Mean Corpuscular Hgb 25.8 pg (27.0-32.0); Mean Corpuscular Volume 86.1 fL (81-99); Mean Platelet Vol. 9.5 fl (6.2-12.0); Platelet Count 167 K/mm3 (150-450); RBC Distribution Width CV 15.9 % (11.6-14.6); RBC Distribution Width SD 50.4 fl (35.1-43.9); White Blood Count 5.6 K/mm3 (4.4-11.0)
--- NOTE | 2019-07-08 07:04 | PCM.PN.ORT ---
Patient Problems: Active and Suspected Problems Infection of prosthetic left knee joint (Acute) Subjective: The patient was sitting in bed upon examination. Patient denies any chest pain, shortness of breath, dizziness, lightheadedness, nausea or vomiting, or calf pain. Pain is controlled on medications. No adverse overnight events. Patient has had increased pain over the past 24 hours. She states the pain medications have been helpful. They have been controlled on oral medications. Plan is for patient to go home with home health care for IV antibiotics. She has been seen by infectious disease and is currently on ceftriaxone and vancomycin. Objective: Vital signs stable and afebrile. Patient is able to plantarflex and dorsiflex actively. Sensation is intact to light touch to saphenous, sural, superficial and deep peroneal, and tibial distribution. Dressing is clean dry and intact. Hemovac drain: There is been trending down of drainage in the Hemovac drain with 110 mL. There is no significant drainage in the canister. Hemovac drain was pulled and Steri-Strip was placed over the incision. Compressive dressing was placed on the knee. Negative Homans bilaterally, negative signs and symptoms of DVT. - Physical Exam General: Alert, Oriented x3, Cooperative, No apparent distress Vital Signs Temp Pulse Resp BP Pulse Ox 98.4 F 78 18 133/61 H 97 07/08/19 01:45 07/08/19 01:45 07/08/19 01:45 07/08/19 01:45 07/08/19 01:45 Oxygen Flow Rate (L/min) 6 Oxygen Delivery Method Room Air Weight: 94 kg Body Mass Index (BMI) 33.4 Intake and Output for Last 24 Hours 07/06/19 07/07/19 07/08/19 23:59 23:59 23:59 Intake Total 2737.09 / 3417.09 3799.33 / 4099.33 634.75 / 634.75 Output Total 250 / 1150 2290 / 2340 50 / 50 Balance 2487.09 / 2267.09 1509.33 / 1759.33 584.75 / 584.75 Microbiology Past 72 Hours 07/06/19 15:44 Gram Stain - Final Tissue - Knee Wound Culture - Preliminary No growth-Final to follow 07/06/19 15:44 Gram Stain - Final Tissue - Knee Wound Culture - Preliminary No growth-Final to follow 07/06/19 15:44 Gram Stain - Final Tissue - Knee Wound Culture - Preliminary No growth-Final to follow Laboratory Tests Past 24 Hrs 07/08/19 06:35 WBC Pending RBC Pending Hgb Pending Hct Pending MCV Pending MCH Pending MCHC Pending RDW Std Deviation Pending RDW Coeff of Pat Pending Plt Count Pending Medical Necessity - Tobacco Use Smoking Status: Never smoker Tobacco Use: Non-smoker Assessment/Plan All Active Problems 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 S/P explant left total knee with placement of articulating antibiotic spacer POD #2 2. Continue Pain Medications: Tylenol and OxyIR 3. DVT Prophylaxis: Patient has been placed back on her Xarelto. Patient has underlying atrial fibrillation and takes 20 mg Xarelto daily 4. PT/OT: Patient will remain toe-touch weightbearing for 2 weeks with knee immobilizer. Okay to loosen knee immobilizer while at rest. We will begin partial weightbearing 50% after 2 weeks. 5. H & H: 8.5/28.4, asymptomatic 6. Encouraged Incentive Spirometry 7. Infectious disease consult: Plan will be for 6 weeks IV antibiotics followed by 2-week antibiotic holiday. PICC line has been placed, patient currently getting vancomycin and ceftriaxone. Patient will require weekly BMP, CBC, ESR, and Vanc trough. Patient will follow-up with infectious disease. 8. Continue postoperative medical management per medicine 9. Continue with Hemovac drain: There is been trending down of drainage with Hemovac drain. There is been only 110 mL output. Hemovac drain was pulled today with Steri-Strip placed in compressive dressing over the knee. 10. Disposition: Plan will be for possible discharge home today with home health care if this is appropriately set up for patient to receive the antibiotics. Patient has had PICC line placed and antibiotic prescriptions are in chart per infectious disease. Patient will require follow-up with infectious disease within the next 2 weeks. Continue blood work per infectious disease recommendation. Patient will follow-up per postop instructions. Prescriptions will be attached to chart.
--- NOTE | 2019-07-08 07:12 | PCM.DC.TKR ---
<Adam Marie - Last Filed: 07/08/19 07:31> Discharge Diet: No Restrictions Discharge Activity: May Not Drive May shower in (days): 1 - Turn dressing away from water Ice area for (Minutes): 20 - every hour while awake. Weight Bearing Status: Toe touch weight bearing - With walker and knee immobilizer in place Elevate: Operative Extremity Additional Activity Instructions:: Wear elastic stockings for 2 weeks after your surgery. Call your doctor if your incision/area has: Continuous Slow Oozing, Sudden Increased Bleeding, Increased Pain/ Swelling, Increased Redness, Foul Smelling Discharge Call your doctor if you observe: Fever of 101 or Higher, Coldness, Increased Pain, Numbness or Tingling, Change in Color, Calf discomfort, Uncontrolled pain Remove Dressing in (days):: 3 - Okay to remove dressing on July 11, 2019 Additional Instructions: Follow-up per orthopedic postop instructions Physical therapy/Occupational Therapy: Toe-touch weightbearing for the next 2 weeks with knee immobilizer. Okay to loosen knee immobilizer while at rest. No range of motion of the knee. We will begin partial weightbearing 50% after 2 weeks postop visit. Antibiotics: Follow infectious disease recommendations and will need scheduled follow-up within 2 weeks. Continue lab work per infectious disease DVT prophylaxis: Patient is placed back on her Xarelto and this will cover her for DVT prophylaxis. Allergies/Adverse Reactions: Allergies diazepam [From Valium] Allergy (Verified 06/22/19 10:02) Other PARANOIA latex Allergy (Verified 06/22/19 10:02) Rash lisinopril Allergy (Verified 06/22/19 10:02) Anaphylaxis morphine Allergy (Verified 06/22/19 10:02) Rash Medications to take at Discharge Jordan/D3/Mag11/Zinc/Software Engineer Intern/Nilton/Bor [Caltrate 600+D Plus Tablet] 1 ea PO DAILY 06/22/19 Cyclobenzaprine HCl 10 mg PO QHS 06/22/19 Hydrochlorothiazide [Hctz] 25 mg PO QODAY 06/22/19 Lutein 6 mg PO DAILY 06/22/19 Potassium Chloride 10 meq PO DAILY 06/22/19 Rivaroxaban [Xarelto] 20 mg PO DAILY 06/22/19 Sertraline HCl [Zoloft] 50 mg PO DAILY 06/22/19 Sotalol HCl [Sotalol] 80 mg PO BID 06/22/19 Ceftriaxone 2 gm IV Q24 40 Days #40 vial 07/07/19 Vancomycin/0.9 % Sod Chloride [Vanco 1.5 gm/250 ml-0.9% NaCl] 1.5 gm IV Q12H 40 Days #80 plast..bag 07/07/19 Acetaminophen [Tylenol] 1,000 mg PO Q8 #100 tab 07/08/19 Oxycodone [Oxyir] 5 - 10 mg PO Q4H PRN PRN 5 Days #60 tab 07/08/19 Senna/Docusate Sodium [Senokot-S] 2 tab PO BID #20 tab 07/08/19 The following prescriptions were given: Ceftriaxone 2 gm IV Q24 40 Days #40 vial Prescription Printed Oxycodone [Oxyir] 5 - 10 mg PO Q4H PRN PRN 5 Days #60 tab PRN Reason: Mod-Severe Pain (4-08/11) Prescription Printed Senna/Docusate Sodium [Senokot-S] 2 tab PO BID #20 tab Prescription Printed Acetaminophen [Tylenol] 1,000 mg PO Q8 #100 tab Prescription Printed Vancomycin/0.9 % Sod Chloride [Vanco 1.5 gm/250 ml-0.9% NaCl] 1.5 gm IV Q12H 40 Days #80 plast..bag Prescription Printed Primary Care Physician: Carlota Delgadillo NP-C [Primary Care Provider] - Test Results: Test results from this visit will be discussed in further detail at your follow-up appointment, if applicable. Please Follow Up With: Fab Estrada MD When: schedule 12-14 days Please Follow Up With: Adam Marie PA-C When: per post-op instructions <Antonio Clements - Last Filed: 07/09/19 09:49> Additional Instructions: Check vancomycin trough thursday07/10/2019 Test Results: Test results from this visit will be discussed in further detail at your follow-up appointment, if applicable. Proposed Discharge Date: 07/09/19
[2019-07-08 07:45] VITALS: BP 142/62; PULSE 71; RESP 18; TEMP 36.4; O2SAT 100
[2019-07-08] MEDS: Sotalol Hydrochloride 80 MG Tablet PO ×2 (07:56→21:36)
[2019-07-08] MEDS: Famotidine 20 MG Tablet PO (07:57)
[2019-07-08] MEDS: hydroCHLOROthiazide 25 MG Tablet PO (07:57)
[2019-07-08] MEDS: 0.9% NaCl IVPB Med Flush (250 mL) 15 ML IV (09:55)
[2019-07-08] MEDS: Vancomycin IV 1,000 MG/200 ML BAG 200 MG IV ×2 (10:58→23:34)
--- NOTE | 2019-07-08 10:59 | CASEMGMT ---
YU CM Note. Call received from Melissa @ [facility]. They are not able to accept patient at this time. Jesus jesus. Karena MURPHYN RN ACM
--- NOTE | 2019-07-08 11:05 | PN_ITS ---
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 She feel well. Denies any new complains. No fever or chills or SOB. Her left knee pain is controlled. s/p PICC line 07/08/19 Objective: Physical exam: General: Alert, Oriented x3, Cooperative, No apparent distress HEENT: Atraumatic, PERRLA, EOMI, Normocephalic Oral: Moist Mucosa Neck: Supple Lungs: Clear to auscultation, Normal air movement Cardiovascular: Regular rate, Regular Rhythm, Normal S1, Normal S2, No murmurs Abdomen: Bowel Sounds Present, Soft, Non Tender, Non-Distended, No Hepato- splenomegaly Extremities: Edema - bilateral pedal edema +1, - - Left leg immobiliser, ice pack in place Skin: No rashes, No breakdown Musculoskeletal: No Tenderness to Palpation of Joints or Extremities Lymphatic: No Cervical, Supraclavicular, or Inguinal Adenopathy Neurological: Cranial nerves II-XII grossly intact, Neuro grossly intact Psych/Mental Status: Normal Affect, Appropriate Vitals/I&O's: Vital Signs Temp Pulse Resp BP Pulse Ox 97.6 F L 71 18 142/62 H 100 07/08/19 07:45 07/08/19 07:45 07/08/19 07:45 07/08/19 07:45 07/08/19 07:45 Oxygen Flow Rate (L/min) 6 Oxygen Delivery Method Room Air Weight: 94 kg Body Mass Index (BMI) 33.4 Intake and Output for Last 24 Hours 07/06/19 07/07/19 07/08/19 23:59 23:59 23:59 Intake Total 2737.09 / 3417.09 3799.33 / 4099.33 1291.75 / 1291.75 Output Total 250 / 1150 2290 / 2340 50 / 50 Balance 2487.09 / 2267.09 1509.33 / 1759.33 1241.75 / 1241.75 Microbiology Past 72 Hours 07/06/19 15:44 Tissue - Knee Gram Stain - Final 07/06/19 15:44 Tissue - Knee Wound Culture - Preliminary No growth-Final to follow 07/06/19 15:44 Tissue - Knee Anaerobic Culture - Preliminary No growth in 48 hours. 07/06/19 15:44 Tissue - Knee Gram Stain - Final 07/06/19 15:44 Tissue - Knee Wound Culture - Preliminary No growth-Final to follow 07/06/19 15:44 Tissue - Knee Anaerobic Culture - Preliminary No growth in 48 hours. 07/06/19 15:44 Tissue - Knee Gram Stain - Final 07/06/19 15:44 Tissue - Knee Wound Culture - Preliminary No growth-Final to follow 07/06/19 15:44 Tissue - Knee Anaerobic Culture - Preliminary No growth in 48 hours. Laboratory Results 07/08/19 06:35: WBC 5.6, RBC 3.30 L, Hgb 8.5 L, Hct 28.4 L, MCV 86.1, MCH 25.8 L , MCHC 29.9 L, RDW Std Deviation 50.4 H, RDW Coeff of Pat 15.9 H, Plt Count 167, MPV 9.5 Current Medications Acetaminophen (Tylenol) 1,000 mg PO Q8 [facility] Last Admin: 07/08/19 06:48 Dose: 1,000 mg Documented by: Cyclobenzaprine HCl (Cyclobenzaprine Hcl) 10 mg PO QHS [facility] Last Admin: 07/07/19 20:08 Dose: 10 mg Documented by: Famotidine (Pepcid) 20 mg PO DAILY [facility] Last Admin: 07/08/19 07:57 Dose: 20 mg Documented by: Hydrochlorothiazide (Hctz) 25 mg PO QODAY [facility] Last Admin: 07/08/19 07:57 Dose: 25 mg Documented by: Hydromorphone HCl (Dilaudid Inj) 0.5 mg IV Q2H PRN PRN PRN Reason: SEVERE PAIN (6-10/10) Last Admin: 07/07/19 22:57 Dose: 0.5 mg Documented by: Sodium Chloride () 250 mls @ 15 mls/hr IV .[id number] PRN PRN Reason: SALINE FLUSH Last Infusion: 07/08/19 10:57 Dose: 0 mls/hr Documented by: Ceftriaxone Sodium 2 gm/ (Sodium Chloride) 50 mls @ 100 mls/hr IV Q24 [facility] Last Infusion: 07/08/19 10:28 Dose: Infused Documented by: Vancomycin IV Pharmacy to Dose (1 ea/ Sodium Chloride) 500 mls @ 250 mls/hr IV PRN PRN; Protocol PRN Reason: Rx to Dose Vancomycin HCl (Vancomycin) 1,000 mg in 200 mls @ 200 mls/hr IV Q12H [facility] Last Admin: 07/08/19 10:58 Dose: 200 mls/hr Documented by: Insulin Human Lispro (Humalog Kwikpen (Bkc)) 1 - 6 unit SC Q4H PRN PRN; Protocol PRN Reason: BG>/= 180, SEE PROTOCOL Ondansetron HCl (Zofran) 4 mg IV Q8H PRN PRN PRN Reason: NAUSEA Oxycodone HCl (Oxyir) 5 - 10 mg PO Q4H PRN PRN PRN Reason: MOD-SEVERE PAIN (4-1010) Last Admin: 07/08/19 08:10 Dose: 10 mg Documented by: Potassium Chloride (K-Dur) 10 meq PO DAILY [facility] Last Admin: 07/08/19 07:56 Dose: 10 meq Documented by: Promethazine HCl (Phenergan) 12.5 mg IM Q6H PRN PRN; Protocol PRN Reason: NAUSEA/VOMITING Rivaroxaban (Xarelto) 20 mg PO DAILY@1700 [facility] Last Admin: 07/07/19 17:23 Dose: 20 mg Documented by: Senna/Docusate Sodium (Senokot-S, Linda-Colace) 2 tablet PO BID [facility] Last Admin: 07/08/19 07:54 Dose: Not Given Documented by: Sertraline HCl (Zoloft) 50 mg PO QHS [facility] Last Admin: 07/07/19 20:10 Dose: 50 mg Documented by: Sodium Chloride () 10 - 40 ml IV UD PRN PRN Reason: SALINE FLUSH Last Admin: 07/08/19 06:39 Dose: 30 ml Documented by: Sotalol HCl (Betapace (G)) 80 mg PO BID [facility] Last Admin: 07/08/19 07:56 Dose: 80 mg Documented by: Medical Necessity - Tobacco Use Smoking Status: Never smoker Tobacco Use: Non-smoker Assessment/Plan All Active Problems Infection of prosthetic left knee joint (Acute) 68-year-old female with past medical history of hypertension, paroxysmal atrial fibrillation who had a total left knee arthroplasty done in 2018 but subsequently had pain on ambulation with some instability. Patient underwent an explant left total knee arthroplasty with placement of antibiotic spacer done on 07/06/19. 1. POD #2, status post explant left total knee arthroplasty with placement of antibiotic spacer, for infected left total knee arthroplasty. Patient is on IV ceftriaxone and vancomycin. Preoperative wound cultures are pending. s/p PICC line for 6 weeks antibiotics. Follow-up with ID. 2. Hypertension, controlled, on HCTZ 3. Paroxysmal atrial fibrillation, on sotalol, Xarelto 4. DVT PPx - on Xarelto Code Visit Inpatient E&M: 62004 Subs Hosp L2
--- NOTE | 2019-07-08 11:30 | CASEMGMT ---
Addendum entered by Denise Moise 07/08/19 13:00: Call received back from Laterra @ [facility] and they are not able to accept pt. Original Note: YU PATRICIA NOTE: Call placed to [facility] and spoke w/Sherri and referral made. Referall packet/info faxed to [facility] at this time. [facility]: PH: [phone] Omar ADAMSON RN CM
--- NOTE | 2019-07-08 13:33 | PCM.PN.ID ---
Patient Problems: Active and Suspected Problems Infection of prosthetic left knee joint (Acute) Subjective: Feeling well, some pain in knee, no rash, no fever, no n/v/d with iv abx - Physical Exam General: Alert, Cooperative, No apparent distress Lungs: Clear to auscultation, Normal air movement Cardiovascular: Regular rate, Regular Rhythm Abdomen: Soft, Non Tender, Non-Distended Skin: Incision - wrapped Vital Signs Temp Pulse Resp BP Pulse Ox 97.6 F L 71 18 142/62 H 100 07/08/19 07:45 07/08/19 07:45 07/08/19 07:45 07/08/19 07:45 07/08/19 07:45 Oxygen Flow Rate (L/min) 6 Oxygen Delivery Method Room Air Weight: 94 kg Body Mass Index (BMI) 33.4 Intake and Output for Last 24 Hours 07/06/19 07/07/19 07/08/19 23:59 23:59 23:59 Intake Total 2737.09 / 3417.09 3799.33 / 4099.33 1491.75 / 1491.75 Output Total 250 / 1150 2290 / 2340 50 / 50 Balance 2487.09 / 2267.09 1509.33 / 1759.33 1441.75 / 1441.75 Microbiology Past 72 Hours 07/06/19 15:44 Gram Stain - Final Tissue - Knee Wound Culture - Preliminary No growth-Final to follow Anaerobic Culture - Preliminary No growth in 48 hours. 07/06/19 15:44 Gram Stain - Final Tissue - Knee Wound Culture - Preliminary No growth-Final to follow Anaerobic Culture - Preliminary No growth in 48 hours. 07/06/19 15:44 Gram Stain - Final Tissue - Knee Wound Culture - Preliminary No growth-Final to follow Anaerobic Culture - Preliminary No growth in 48 hours. Laboratory Tests Past 24 Hrs 07/08/19 06:35 WBC 5.6 RBC 3.30 L Hgb 8.5 L Hct 28.4 L MCV 86.1 MCH 25.8 L MCHC 29.9 L RDW Std Deviation 50.4 H RDW Coeff of Pat 15.9 H Plt Count 167 MPV 9.5 Medical Necessity - Tobacco Use Smoking Status: Never smoker Tobacco Use: Non-smoker Route of nutrition/ use of supplements: [] Nutritional Intake: [] IV Site: [] Valentin Catheter: [] - Assessment/Plan Antibiotics: [] Assessment/Plan: [] L knee PJI - now s/p spacer placement by Dr. Clements 07/06. Aspiration on 06/13 with 92% neutrophils but negative cx. Surg cx neg so far here. Picc in place, ok for home with 6 weeks of iv vanc/ceftriaxone, stop date 08/17/19 with weekly bmp, cbc, esr, and vanc trough. If cxs turn (+), will narrow abx coverage. Asked micro lab hold surg cxs for 2 weeks. Will follow, d/w machine adjuster leader case trim. ID followup in 2-3 weeks.
[2019-07-08 13:58] VITALS: BP 128/61; PULSE 72; RESP 14; TEMP 36.6; O2SAT 98
--- NOTE | 2019-07-08 15:26 | CASEMGMT ---
Addendum entered by Denise Moise 07/08/19 16:34: Call received from Opal, manager data warehouse @ [facility]. She states d/t issues with insurance, referral is being sent to [email or web address]. Opal is aware that Vanco trough will be drawn this PM and pt may need a new script for Vanco, depending on results. Plan is for pt to be discharged tomorrow, 07/09/19 and [facility] to start care 07/09/19. Start of care will be dependent up on Vanco trough results and any new scripts obtained. [facility] [employer]: PH: [phone]. . Pt made aware she will not be discharging today. She was made aware that someone from [facility] would be in contact with her tomorrow re: financials and arrangements will be made for her to be discharged tomorrow 07/09/19. CM to coordinate start of care/next dose of IV atb with [facility] and [facility] for delivery of IV antibiotics and supplies. Opal from [facility] asks for a copy of any new scripts of IV atb's be sent home with pt on Thursday d/t their fax line is not working at this time. Green sheet placed on chart with discharge instructions for [facility] and [facility] and contact information for a safe discharge. Addendum entered by Denise Moise 07/08/19 15:43: Call placed to [facility] [employer]. They are still awaiting financials and will call this YU PATRICIA once these are determined. Original Note: YU PATRICIA NOTE: Pt has been made aware [facility] and [facility] not able to accept her. Pt states no other preference of [facility] agency. Call placed to [facility]: [place], and spoke to Amanda. Referral made and referral info/packet faxed. Amanda called back and stated they are able to accept pt. She states they are unable to accept infusions from [facility] through [facility] and that they will set up infusion/make arrangements through [email or web address]. She was made aware pt's next dose of antibiotic is due this PM @ 2300 and pt will need Vanco trough drawn before that dose. She states she is not sure if it can be arranged for start of care for this PM or if they will need to do start of care tomorrow. Awaiting call back. Pt made aware Karthikeyan @ [place] able to accept her and awaiting call back from [place] on when they can start care at home. Karthikeyan @ [facility]. PH: [phone] [facility]: PH: [phone] Call placed to [facility] and referral cancelled. Omar MURPHYN RN CM
[2019-07-08] MEDS: Rivaroxaban 20 MG Tablet PO (16:57)
[2019-07-08 19:32] VITALS: BP 137/61; PULSE 83; RESP 18; TEMP 37.1; O2SAT 97
[2019-07-08] MEDS: Sertraline 50 MG Tablet PO (21:36)
[2019-07-08] MEDS: cycloBENZAPRine HCl 5 MG TABLET 10 MG PO (21:36)
[2019-07-08 23:20] LABS: Vancomycin, Trough Level 9.2 ug/mL (5.0-15.0)
--- NOTE | 2019-07-09 01:02 | PCM.RX.CS ---
Consult Pharmacy has been consulted to manage selected antiobiotic: Vancomycin Type of Consult: Follow-up Suspected Infection: Other Prior Doses of Antibiotics Received/Current Regimen: Medications Vancomycin HCl 1,500 mg/ (Sodium Chloride) 530 mls @ 250 mls/hr IV Q12H [facility] Discontinued Medications Vancomycin HCl (Vancomycin) 1,000 mg in 200 mls @ 200 mls/hr IV Q12H [facility] Last Admin: 07/09/19 00:34 Dose: Infused Labs: Sodium 142 mmol/L (136-145) 07/07/19 05:25 Potassium 4.4 mmol/L (3.5-5.1) 07/07/19 05:25 Chloride 107 mmol/L (98-107) 07/07/19 05:25 Carbon Dioxide 28.0 mmol/L (21.0-32.0) 07/07/19 05:25 Anion Gap 7 (5-15) 07/07/19 05:25 BUN 12 mg/dL (7-18) 07/07/19 05:25 Creatinine 0.65 mg/dL (0.55-1.02) 07/07/19 05:25 Est GFR (MDRD) Af Amer 117 mL/min (>60) 07/07/19 05:25 Est GFR (MDRD) Non-Af 96 mL/min (>60) 07/07/19 05:25 BUN/Creatinine Ratio 18.5 RATIO (10-20) 07/07/19 05:25 Glucose 124 mg/dL (74-106) H 07/07/19 05:25 Vancomycin Trough 9.2 ug/mL (5.0-15.0) 07/08/19 22:35 Microbiology: Microbiology 07/06/19 15:44 Tissue - Knee Gram Stain - Final 07/06/19 15:44 Tissue - Knee Wound Culture - Preliminary No growth-Final to follow 07/06/19 15:44 Tissue - Knee Anaerobic Culture - Preliminary No growth in 48 hours. 07/06/19 15:44 Tissue - Knee Gram Stain - Final 07/06/19 15:44 Tissue - Knee Wound Culture - Preliminary No growth-Final to follow 07/06/19 15:44 Tissue - Knee Anaerobic Culture - Preliminary No growth in 48 hours. 07/06/19 15:44 Tissue - Knee Gram Stain - Final 07/06/19 15:44 Tissue - Knee Wound Culture - Preliminary No growth-Final to follow 07/06/19 15:44 Tissue - Knee Anaerobic Culture - Preliminary No growth in 48 hours. 06/22/19 11:00 Swab (Method) Nasal Screen MRSA/MSSA - Final Weight used for dosin kg Estimated Creatinine Clearance: 50.4 Goal Trough: 15-20 mcg/mL Pharmacy Plan for Drug Dosing: Trough level of 9.2 was below target range of 15-20. Will increase dose to 1500mg q12h and redraw trough level prior to 4th dose at new regimen, pending patient's discharge status. Pharmacy Service will continue to monitor and adjust dosing as required. Follow-Up Labs: Trough Vancomycin Labs to be done on [date and time ordered]: 07/10/19 @5398
[2019-07-09 02:44] VITALS: BP 118/61; PULSE 70; RESP 16; TEMP 36.6; O2SAT 95
[2019-07-09] MEDS: Acetaminophen 500 MG Tablet 1000 MG PO (05:05)
[2019-07-09 05:51] LABS: Hematocrit 28.2 % (37-47); Hemoglobin 8.5 g/dL (12.0-15.0); Mean Corp Hgb Conc 30.1 g/dL (32-36); Mean Corpuscular Hgb 25.8 pg (27.0-32.0); Mean Corpuscular Volume 85.7 fL (81-99); Mean Platelet Vol. 8.9 fl (6.2-12.0); Platelet Count 196 K/mm3 (150-450); RBC Distribution Width SD 50.5 fl (35.1-43.9); Red Blood Count 3.29 M/mm3 (4.2-5.4); White Blood Count 6.1 K/mm3 (4.4-11.0)
[2019-07-09] MEDS: 0.9% NaCl Peripheral Flush Adult/Peds IV (09:49)
--- NOTE | 2019-07-09 09:49 | PN.ORTHO_ITS ---
Patient Problems: Active and Suspected Problems Infection of prosthetic left knee joint (Acute) Subjective: Patient is doing well overall. She is comfortable. She notes that the numbness in her foot from prior to surgery is gone and she has full sensation. She is been comfortable. Vancomycin trough was checked yesterday and found to be low. Increased vancomycin dose. Appropriate scripts were checked today and have been written by ID. We did write a new order for lab check tomorrow which was recommended. No fevers chills or night sweats. No acute events overnight. Objective: Postoperative x-rays were reviewed showing well aligned antibiotic spacer. - Physical Exam General: Alert, Oriented x3, Cooperative Extremities: - - Left lower extremity: Dressing is clean dry and intact Sensations intact to light touch saphenous, sural, superficial peroneal, deep peroneal, and tibial distributions Motors intact EHL, DF, PF calves are soft and supple Knee immobilizers in place comfortable. Knee shows appropriate amount of swelling. Minimal erythema. Vital Signs Temp Pulse Resp BP Pulse Ox 97.9 F 70 16 118/61 95 07/09/19 02:44 07/09/19 02:44 07/09/19 02:44 07/09/19 02:44 07/09/19 02:44 Oxygen Flow Rate (L/min) 6 Oxygen Delivery Method Room Air Weight: 207 lb 3.752 oz Body Mass Index (BMI) 33.4 Intake and Output for Last 24 Hours 07/07/19 07/08/19 07/09/19 23:59 23:59 23:59 Intake Total 3799.33 / 4099.33 2305.75 / 2305.75 200 / 200 Output Total 2290 / 2340 50 / 50 Balance 1509.33 / 1759.33 2255.75 / 2255.75 200 / 200 Microbiology Past 72 Hours 07/06/19 15:44 Gram Stain - Final Tissue - Knee Wound Culture - Preliminary No growth-Final to follow Anaerobic Culture - Preliminary No growth in 48 hours. 07/06/19 15:44 Gram Stain - Final Tissue - Knee Wound Culture - Preliminary No growth-Final to follow Anaerobic Culture - Preliminary No growth in 48 hours. 07/06/19 15:44 Gram Stain - Final Tissue - Knee Wound Culture - Preliminary No growth-Final to follow Anaerobic Culture - Preliminary No growth in 48 hours. Laboratory Tests Past 24 Hrs 07/08/19 07/09/19 22:35 05:40 WBC 6.1 RBC 3.29 L Hgb 8.5 L Hct 28.2 L MCV 85.7 MCH 25.8 L MCHC 30.1 L RDW Std Deviation 50.5 H RDW Coeff of Pat 16.0 H Plt Count 196 MPV 8.9 Vancomycin Trough 9.2 Medical Necessity - Tobacco Use Smoking Status: Never smoker Tobacco Use: Non-smoker Assessment/Plan All Active Problems 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 S/P explant left total knee with placement of articulating antibiotic spacer POD #3 2. Continue Pain Medications: Tylenol and OxyIR 3. DVT Prophylaxis: Patient has been placed back on her Xarelto. Patient has underlying atrial fibrillation and takes 20 mg Xarelto daily 4. PT/OT: Patient will remain toe-touch weightbearing for 2 weeks with knee immobilizer. Okay to loosen knee immobilizer while at rest. We will begin partial weightbearing 50% after 2 weeks. 5. Postoperative anemia: Related to surgery blood loss. Patient is overall doing well. Asymptomatic. Hemoglobin is stable at 8.5 this morning. 6. Encouraged Incentive Spirometry 7. Infectious disease consult: Plan will be for 6 weeks IV antibiotics followed by 2-week antibiotic holiday. PICC line has been placed, patient currently getting vancomycin and ceftriaxone. Patient will require weekly BMP, CBC, ESR, and Vanc trough. Vancomycin dose adjusted last evening, vancomycin trough ordered for tomorrow with home-going prescription. Patient will follow-up with infectious disease. 8. Appreciate medical input on this patient. Patient has been medically stable 9. Hemovac drain was removed yesterday. 10. Disposition: Plan will be for discharge home today with home health care. Patient has had PICC line placed and antibiotic prescriptions are in chart per infectious disease. Order for vancomycin trough checked tomorrow was written. Patient will require follow-up with infectious disease within the next 2 weeks. Continue blood work per infectious disease recommendation. Patient will follow- up per postop instructions. Prescriptions will be attached to chart. [facility] Office:
[2019-07-09] MEDS: Sotalol Hydrochloride 80 MG Tablet PO (09:50)
[2019-07-09] MEDS: Famotidine 20 MG Tablet PO (09:51)
[2019-07-09 09:52] VITALS: BP 134/64; PULSE 76; RESP 16; TEMP 36.8; O2SAT 99
--- NOTE | 2019-07-09 09:53 | DS.PCM_ITS ---
Discharge Date and Diagnosis - Problem List Patient Problems: Active and Suspected Problems Infection of prosthetic left knee joint (Acute) Date of Admission: 07/06/19 Date of Discharge: 07/09/19 - Primary Discharge Diagnosis Active and Suspected Problems Infection of prosthetic left knee joint (Acute) - Secondary Discharge Diagnosis Atrial fibrillation, HTN, fibromyalgia, endometriosis Hospital Course and Treatment Infectious disease, Dr. Estrada Hospitalist Operations: - - Removal of left total knee replacement placement of antibiotic spacer Procedures: PICC line placement Summary of Care Provided: The patient is a 68 year old F with history of loosening of her left total knee replacement and work-up consistent with infection. Patient was brought to the hospital on 07/06/2019 where a removal of total knee replacement and placement of antibiotic spacer with nonbiodegradable antibiotic delivery system was performed. Postoperatively patient did well. Drain was left in for 48 hours. Drain was removed after 48 hours. Cultures continue to remain negative. Patient is being treated with broad-spectrum antibiotics patient remained medically stable under the hospitalist service. Infectious disease and pharmacology have been monitoring her vancomycin trough. Her most recent trough was 9.5 and vancomycin dose was increased yesterday. Patient will be discharged home with a knee immobilizer with toe-touch weightbearing. She will get ceftriaxone once a day and vancomycin twice a day. Home health services been arranged. Patient is done well medically throughout this hospital stay in bed comfortable. Patient Problems: Active and Suspected Problems Infection of prosthetic left knee joint (Acute) - Physical Exam General: Alert, Oriented x3, Cooperative Extremities: - - Left lower extremity: Dressing is clean dry and intact Sensations intact to light touch saphenous, sural, superficial peroneal, deep peroneal, and tibial distributions Motors intact EHL, DF, PF calves are soft and supple Vital Signs Temp Pulse Resp BP Pulse Ox 98.3 F 76 16 134/64 H 99 07/09/19 09:52 07/09/19 09:52 07/09/19 09:52 07/09/19 09:52 07/09/19 09:52 Oxygen Flow Rate (L/min) 6 Oxygen Delivery Method Room Air Weight: 207 lb 3.752 oz Body Mass Index (BMI) 33.4 Intake and Output for Last 24 Hours 07/07/19 07/08/19 07/09/19 23:59 23:59 23:59 Intake Total 3799.33 / 4099.33 2305.75 / 2305.75 200 / 200 Output Total 2290 / 2340 50 / 50 Balance 1509.33 / 1759.33 2255.75 / 2255.75 200 / 200 Microbiology Past 72 Hours 07/06/19 15:44 Gram Stain - Final Tissue - Knee Wound Culture - Preliminary No growth-Final to follow Anaerobic Culture - Preliminary No growth in 48 hours. 07/06/19 15:44 Gram Stain - Final Tissue - Knee Wound Culture - Preliminary No growth-Final to follow Anaerobic Culture - Preliminary No growth in 48 hours. 07/06/19 15:44 Gram Stain - Final Tissue - Knee Wound Culture - Preliminary No growth-Final to follow Anaerobic Culture - Preliminary No growth in 48 hours. Laboratory Tests Past 24 Hrs 07/08/19 07/09/19 22:35 05:40 WBC 6.1 RBC 3.29 L Hgb 8.5 L Hct 28.2 L MCV 85.7 MCH 25.8 L MCHC 30.1 L RDW Std Deviation 50.5 H RDW Coeff of Apt 16.0 H Plt Count 196 MPV 8.9 Vancomycin Trough 9.2 Discharge Diet: No Restrictions Discharge Activity: May Not Drive May shower in (days): 1 - Turn dressing away from water Ice area for (Minutes): 20 - every hour while awake. Weight Bearing Status: Toe touch weight bearing - With walker and knee immobilizer in place Keep extremity elevated above heart level: Operative Extremity Additional Activity Instructions:: Wear elastic stockings for 2 weeks after your surgery. Call your doctor if your incision/area has: Continuous Slow Oozing, Sudden Increased Bleeding, Increased Pain/ Swelling, Increased Redness, Foul Smelling Discharge Call your doctor if you observe: Fever of 101 or Higher, Coldness, Increased Pain, Numbness or Tingling, Change in Color, Calf discomfort, Uncontrolled pain Remove Dressing in (days):: 3 - Okay to remove dressing on July 11, 2019 Home Medications: Medications to take at Discharge Jordan/D3/Mag11/Zinc/Recovery Operator Helper/[place]/Bor [Caltrate 600+D Plus Tablet] 1 ea PO DAILY 06/22/19 Cyclobenzaprine HCl 10 mg PO QHS 06/22/19 Hydrochlorothiazide [Hctz] 25 mg PO QODAY 06/22/19 Lutein 6 mg PO DAILY 06/22/19 Potassium Chloride 10 meq PO DAILY 06/22/19 Rivaroxaban [Xarelto] 20 mg PO DAILY 06/22/19 Sertraline HCl [Zoloft] 50 mg PO DAILY 06/22/19 Sotalol HCl [Sotalol] 80 mg PO BID 06/22/19 Ceftriaxone 2 gm IV Q24 40 Days #40 vial 07/07/19 Vancomycin/0.9 % Sod Chloride [Vanco 1.5 gm/250 ml-0.9% NaCl] 1.5 gm IV Q12H 40 Days #80 plast..bag 07/07/19 Acetaminophen [Tylenol] 1,000 mg PO Q8 #100 tab 07/08/19 Oxycodone [Oxyir] 5 - 10 mg PO Q4H PRN PRN 5 Days #60 tab 07/08/19 Senna/Docusate Sodium [Senokot-S] 2 tab PO BID #20 tab 07/08/19 Following Prescrptions Were Given to Patient: Ceftriaxone 2 gm IV Q24 40 Days #40 vial Prescription Printed Oxycodone [Oxyir] 5 - 10 mg PO Q4H PRN PRN 5 Days #60 tab PRN Reason: Mod-Severe Pain (4-1010) Prescription Printed Senna/Docusate Sodium [Senokot-S] 2 tab PO BID #20 tab Prescription Printed Acetaminophen [Tylenol] 1,000 mg PO Q8 #100 tab Prescription Printed Vancomycin/0.9 % Sod Chloride [Vanco 1.5 gm/250 ml-0.9% NaCl] 1.5 gm IV Q12H 40 Days #80 plast..bag Prescription Printed Primary Care Physician: Carlota Delgadillo NP-C [Primary Care Provider] - Please Follow Up With: Fab Estrada MD When: schedule 12-14 days Please Follow Up With: Adam Marie PA-C When: per post-op instructions Additional Instructions: Check vancomycin trough thursday07/10/2019 Medical Necessity - Tobacco Use Smoking Status: Never smoker Tobacco Use: Non-smoker Meaningful Use Info Meaningful Use Diagnoses (Choose all that apply): VTE - VTE Anticoag overlap given w/in hospital stay or rx'd at dc?: Yes Pt receive overlap for 5 days?: Yes
--- NOTE | 2019-07-09 12:08 | PN_ITS ---
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 She could not be discharged yesterday because vancomycin trough was yet to be drawn. Vanco trough is 9.2 Her vancomycin was increased to 1.5 g every 12h. Patient denied any fever or chills or shortness of breath. Objective: Physical exam: General: Alert, Oriented x3, Cooperative, No apparent distress HEENT: Atraumatic, PERRLA, EOMI, Normocephalic Oral: Moist Mucosa Neck: Supple Lungs: Clear to auscultation, Normal air movement Cardiovascular: Regular rate, Regular Rhythm, Normal S1, Normal S2, No murmurs Abdomen: Bowel Sounds Present, Soft, Non Tender, Non-Distended, No Hepato-spl enomegaly Extremities: Edema - bilateral pedal edema +1, - - Left leg immobiliser, ice pack in place Skin: No rashes, No breakdown Musculoskeletal: No Tenderness to Palpation of Joints or Extremities Lymphatic: No Cervical, Supraclavicular, or Inguinal Adenopathy Neurological: Cranial nerves II-XII grossly intact, Neuro grossly intact Psych/Mental Status: Normal Affect, Appropriate Vitals/I&O's: Vital Signs Temp Pulse Resp BP Pulse Ox 98.3 F 76 16 134/64 H 99 07/09/19 09:52 07/09/19 09:52 07/09/19 09:52 07/09/19 09:52 07/09/19 09:52 Oxygen Flow Rate (L/min) 6 Oxygen Delivery Method Room Air Weight: 94 kg Body Mass Index (BMI) 33.4 Intake and Output for Last 24 Hours 07/07/19 07/08/19 07/09/19 23:59 23:59 23:59 Intake Total 3799.33 / 4099.33 2305.75 / 2305.75 200 / 200 Output Total 2290 / 2340 50 / 50 Balance 1509.33 / 1759.33 2255.75 / 2255.75 200 / 200 Microbiology Past 72 Hours 07/06/19 15:44 Tissue - Knee Gram Stain - Final 07/06/19 15:44 Tissue - Knee Wound Culture - Preliminary No growth-Final to follow 07/06/19 15:44 Tissue - Knee Anaerobic Culture - Preliminary No growth in 48 hours. 07/06/19 15:44 Tissue - Knee Gram Stain - Final 07/06/19 15:44 Tissue - Knee Wound Culture - Preliminary No growth-Final to follow 07/06/19 15:44 Tissue - Knee Anaerobic Culture - Preliminary No growth in 48 hours. 07/06/19 15:44 Tissue - Knee Gram Stain - Final 07/06/19 15:44 Tissue - Knee Wound Culture - Preliminary No growth-Final to follow 07/06/19 15:44 Tissue - Knee Anaerobic Culture - Preliminary No growth in 48 hours. Laboratory Results 07/08/19 22:35: Vancomycin Trough 9.2 07/09/19 05:40: WBC 6.1, RBC 3.29 L, Hgb 8.5 L, Hct 28.2 L, MCV 85.7, MCH 25.8 L , MCHC 30.1 L, RDW Std Deviation 50.5 H, RDW Coeff of Pat 16.0 H, Plt Count 196, MPV 8.9 Current Medications Acetaminophen (Tylenol) 1,000 mg PO Q8 [facility] Last Admin: 07/09/19 05:05 Dose: 1,000 mg Documented by: Cyclobenzaprine HCl (Cyclobenzaprine Hcl) 10 mg PO QHS [facility] Last Admin: 07/08/19 21:36 Dose: 10 mg Documented by: Famotidine (Pepcid) 20 mg PO DAILY [facility] Last Admin: 07/09/19 09:51 Dose: 20 mg Documented by: Hydrochlorothiazide (Hctz) 25 mg PO QODAY [facility] Last Admin: 07/08/19 07:57 Dose: 25 mg Documented by: Hydromorphone HCl (Dilaudid Inj) 0.5 mg IV Q2H PRN PRN PRN Reason: SEVERE PAIN (6-10/10) Last Admin: 07/07/19 22:57 Dose: 0.5 mg Documented by: Sodium Chloride () 250 mls @ 15 mls/hr IV .[id number] PRN PRN Reason: SALINE FLUSH Last Infusion: 07/08/19 23:34 Dose: 0 mls/hr Documented by: Ceftriaxone Sodium 2 gm/ (Sodium Chloride) 50 mls @ 100 mls/hr IV Q24 [facility] Last Infusion: 07/08/19 10:28 Dose: Infused Documented by: Vancomycin IV Pharmacy to Dose (1 ea/ Sodium Chloride) 500 mls @ 250 mls/hr IV PRN PRN; Protocol PRN Reason: Rx to Dose Vancomycin HCl 1,500 mg/ (Sodium Chloride) 530 mls @ 250 mls/hr IV Q12H [facility] Last Admin: 07/09/19 09:49 Dose: 250 mls/hr Documented by: Insulin Human Lispro (Humalog Kwikpen (Bkc)) 1 - 6 unit SC Q4H PRN PRN; Protocol PRN Reason: BG>/= 180, SEE PROTOCOL Ondansetron HCl (Zofran) 4 mg IV Q8H PRN PRN PRN Reason: NAUSEA Oxycodone HCl (Oxyir) 5 - 10 mg PO Q4H PRN PRN PRN Reason: MOD-SEVERE PAIN (4-10/10) Last Admin: 07/08/19 21:41 Dose: 10 mg Documented by: Potassium Chloride (K-Dur) 10 meq PO DAILY [facility] Last Admin: 07/09/19 09:50 Dose: 10 meq Documented by: Promethazine HCl (Phenergan) 12.5 mg IM Q6H PRN PRN; Protocol PRN Reason: NAUSEA/VOMITING Rivaroxaban (Xarelto) 20 mg PO DAILY@1700 [facility] Last Admin: 07/08/19 16:57 Dose: 20 mg Documented by: Senna/Docusate Sodium (Senokot-S, Linda-Colace) 2 tablet PO BID [facility] Last Admin: 07/09/19 09:51 Dose: Not Given Documented by: Sertraline HCl (Zoloft) 50 mg PO QHS [facility] Last Admin: 07/08/19 21:36 Dose: 50 mg Documented by: Sodium Chloride () 10 - 40 ml IV UD PRN PRN Reason: SALINE FLUSH Last Admin: 07/09/19 09:49 Dose: 10 ml Documented by: Sotalol HCl (Betapace (G)) 80 mg PO BID [facility] Last Admin: 07/09/19 09:50 Dose: 80 mg Documented by: Medical Necessity - Tobacco Use Smoking Status: Never smoker Tobacco Use: Non-smoker Assessment/Plan All Active Problems Infection of prosthetic left knee joint (Acute) 68-year-old female with past medical history of hypertension, paroxysmal atrial fibrillation who had a total left knee arthroplasty done in 2018 but subsequently had pain on ambulation with some instability. Patient underwent an explant left total knee arthroplasty with placement of antibiotic spacer done on 07/06/19. 1. POD #3, status post explant left total knee arthroplasty with placement of antibiotic spacer, for infected left total knee arthroplasty. Patient is on IV ceftriaxone and vancomycin. Preoperative wound cultures are pending. s/p PICC line for 6 weeks antibiotics. Follow-up with ID. 2. Hypertension, controlled, on HCTZ 3. Paroxysmal atrial fibrillation, on sotalol, Xarelto 4. DVT PPx - on Xarelto Code Visit Inpatient E&M: 03681 Subs Hosp L2
[2019-07-09] MEDS: oxyCODONE 5 MG Tablet PO (12:12)
== END 2019-07-09 14:07 | disposition home health service (06) | DRG 468 ==
LOC: ACINP 09:52 → MS3 07-07 06:45
PROVIDERS: Anesthesiology; Internal Medicine Infectious Disease; Admitting Provider Specialist; Family Provider Nurse Practitioner Family; PCP Nurse Practitioner Family; Referring Provider Specialist; Visit Provider Specialist
PROC: 0SPD0JZ Removal of Synthetic Substitute from Left Knee Joint, Open Approach (ICD-10-PCS; CPT 27488; principal; 2019-07-06 11:50)
DX: T84.54XA Infection and inflammatory reaction due to internal left knee prosthesis, initial encounter (principal); I10 Essential (primary) hypertension; M79.7 Fibromyalgia; Y83.1 Surgical operation with implant of artificial internal device as the cause of abnormal reaction of the patient, or of later complication, without mention of misadventure at the time of the procedure; Z96.652 Presence of left artificial knee joint; T84.033A Mechanical loosening of internal left knee prosthetic joint, initial encounter; I48.0 Paroxysmal atrial fibrillation; Z79.01 Long term (current) use of anticoagulants; Z85.828 Personal history of other malignant neoplasm of skin; M65.862 Other synovitis and tenosynovitis, left lower leg
CPT/HCPCS: 36415; 36416; 36569; 71045; 73560; 80048; 80076; 80202; 82962; 85027; 85610; 85730; 87015; 87070; 87075; 87081; 87102; 87116; 87176; 87205; 87206; 97110; 97162; 97166; 97530; 97535; 99251; C1776; J7040; J7050; J7120; A4216; G0463; J0696; J3260

== ENCOUNTER → 2019-08-08 12:56 | Outpatient (CLI) | payer MEDICARE, MEDICAID, SELFPAY ==
[2019-07-06 17:57] VITALS: BMI 33.4
[2019-08-08 11:39] LABS: Erythrocyte Sedimentation Rate 19 mm/hr (0-30)
[2019-08-08 11:40] LABS: Hematocrit 38.3 % (37-47); Hemoglobin 11.3 g/dL (12.0-15.0); Mean Corp Hgb Conc 29.5 g/dL (32-36); Mean Corpuscular Hgb 26.3 pg (27.0-32.0); Mean Corpuscular Volume 89.1 fL (81-99); Mean Platelet Vol. 9.4 fl (6.2-12.0); Platelet Count 185 K/mm3 (150-450); RBC Distribution Width CV 16.3 % (11.6-14.6); RBC Distribution Width SD 53.4 fl (35.1-43.9); White Blood Count 3.3 K/mm3 (4.4-11.0)
[2019-08-08 12:01] LABS: Anion Gap 5 (5-15); BUN 25 mg/dL (7-18); BUN/Creat Ratio 34.6 RATIO (10-20); Calcium,Total 9.3 mg/dL (8.5-10.1); Chloride 105 mmol/L (98-107); Creatinine, Serum 0.72 mg/dL (0.55-1.02); EST Glomerular Filtration Rate 85 mL/min (>60); Est Glom Filt Rate - Afr Amer 103 mL/min (>60); Glucose 69 mg/dL (74-106); Potassium 3.9 mmol/L (3.5-5.1); Sodium Level 141 mmol/L (136-145)
[2019-08-08 12:15] LABS: Vancomycin, Trough Level 11.8 ug/mL (5.0-15.0)
== END ==
PROVIDERS: Family Provider Nurse Practitioner Family; PCP Nurse Practitioner Family; Referring Provider Internal Medicine Infectious Disease; Visit Provider Internal Medicine Infectious Disease
DX: T84.50XA Infection and inflammatory reaction due to unspecified internal joint prosthesis, initial encounter (principal)
CPT/HCPCS: 36415; 80048; 80202; 85027; 85652

== ENCOUNTER → 2019-08-15 11:01 | Outpatient (CLI) | payer MEDICARE, MEDICAID, SELFPAY ==
[2019-07-06 17:57] VITALS: BMI 33.4
[2019-08-15 11:55] LABS: Erythrocyte Sedimentation Rate 26 mm/hr (0-30)
[2019-08-15 11:57] LABS: Hematocrit 38.1 % (37-47); Hemoglobin 11.4 g/dL (12.0-15.0); Mean Corp Hgb Conc 29.9 g/dL (32-36); Mean Corpuscular Hgb 26.3 pg (27.0-32.0); Mean Platelet Vol. 9.3 fl (6.2-12.0); Platelet Count 195 K/mm3 (150-450); RBC Distribution Width CV 16.1 % (11.6-14.6); RBC Distribution Width SD 52.8 fl (35.1-43.9); Red Blood Count 4.33 M/mm3 (4.2-5.4)
[2019-08-15 12:21] LABS: Anion Gap 5 (5-15); BUN 16 mg/dL (7-18); BUN/Creat Ratio 24.3 RATIO (10-20); Calcium,Total 9.3 mg/dL (8.5-10.1); Chloride 103 mmol/L (98-107); Creatinine, Serum 0.66 mg/dL (0.55-1.02); EST Glomerular Filtration Rate 95 mL/min (>60); Est Glom Filt Rate - Afr Amer 114 mL/min (>60); Glucose 97 mg/dL (74-106); Potassium 3.8 mmol/L (3.5-5.1); Sodium Level 139 mmol/L (136-145)
[2019-08-15 13:01] LABS: Vancomycin, Trough Level 14.2 ug/mL (5.0-15.0)
== END ==
PROVIDERS: Family Provider Nurse Practitioner Family; PCP Nurse Practitioner Family; Referring Provider Internal Medicine Infectious Disease; Visit Provider Internal Medicine Infectious Disease
DX: T84.50XA Infection and inflammatory reaction due to unspecified internal joint prosthesis, initial encounter (principal)
CPT/HCPCS: 36415; 80048; 80202; 85027; 85652

== ENCOUNTER → 2019-08-18 16:57 | Outpatient (CLI) | payer MEDICARE, MEDICAID, SELFPAY ==
[2019-07-06 17:57] VITALS: BMI 33.4
[2019-08-18 17:30] LABS: Erythrocyte Sedimentation Rate 34 mm/hr (0-30)
== END ==
PROVIDERS: Family Provider Nurse Practitioner Family; PCP Nurse Practitioner Family; Referring Provider Physician Assistant Surgical; Visit Provider Physician Assistant Surgical
DX: T84.54XD Infection and inflammatory reaction due to internal left knee prosthesis, subsequent encounter (principal)
CPT/HCPCS: 36415; 85652; 86141

== ENCOUNTER → 2019-09-01 11:56 | Outpatient (CLI) | payer MEDICARE, MEDICAID, SELFPAY ==
[2019-07-06 17:57] VITALS: BMI 33.4
[2019-09-01 13:59] LABS: Erythrocyte Sedimentation Rate 30 mm/hr (0-30)
== END ==
PROVIDERS: Family Provider Nurse Practitioner Family; PCP Nurse Practitioner Family; Referring Provider Physician Assistant Surgical; Visit Provider Physician Assistant Surgical
DX: T84.54XD Infection and inflammatory reaction due to internal left knee prosthesis, subsequent encounter (principal); I10 Essential (primary) hypertension; I48.91 Unspecified atrial fibrillation
CPT/HCPCS: 36415; 85652; 86141

== ENCOUNTER 2019-10-12 10:09 | Inpatient (IN) | payer MEDICARE, MEDICAID, SELFPAY ==
[2019-07-06 17:57] VITALS: BMI 33.4
[2019-09-21 13:28] VITALS: BP 137/67; PULSE 61; RESP 16; TEMP 36.3; O2SAT 99; BMI 33.9
[2019-09-21 14:29] LABS: Absolute Lymphocyte Count 2.12 X10^3/uL (0.83-4.51); Absolute Neutrophil Count 2.6 X10^3/uL (2.0-7.7); Basophil# 0.03 X10^3/uL; Basophil% 0.6 % (0-1); Eosinophil# 0.08 X10^3/uL; Eosinophils% 1.5 % (0-5); Hematocrit 39.3 % (37-47); Lymphocyte # 2.12 X10^3/ul (4.0); Lymphocyte % 40.9 % (19-41); Mean Corp Hgb Conc 30.5 g/dL (32-36); Mean Corpuscular Hgb 26.7 pg (27.0-32.0); Mean Corpuscular Volume 87.3 fL (81-99); Mean Platelet Vol. 9.4 fl (6.2-12.0); Monocyte# 0.37 X10^3/uL; Monocyte% 7.1 % (0-10); NRBC Flagged by Analyzer 0 % (0-5); Neutrophil # 2.57 X10^3/uL (2.7-7.7); Neutrophil % 49.7 % (47-70); Platelet Count 221 K/mm3 (150-450); RBC Distribution Width CV 15.5 % (11.6-14.6); RBC Distribution Width SD 49.3 fl (35.1-43.9); White Blood Count 5.2 K/mm3 (4.4-11.0)
[2019-09-21 14:50] LABS: Anion Gap 5 (5-15); BUN 21 mg/dL (7-18); BUN/Creat Ratio 26.5 RATIO (10-20); Calcium,Total 9.3 mg/dL (8.5-10.1); Chloride 105 mmol/L (98-107); Creatinine, Serum 0.79 mg/dL (0.55-1.02); EST Glomerular Filtration Rate 77 mL/min (>60); Est Glom Filt Rate - Afr Amer 93 mL/min (>60); Glucose 139 mg/dL (74-106); Potassium 3.9 mmol/L (3.5-5.1); Sodium Level 140 mmol/L (136-145)
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
[2019-10-12] VITALS (12 sets, daily range): BP systolic 113–163; BP diastolic 57–87; PULSE 52–80; RESP 16–18; TEMP 36–36.6; O2SAT 94–100; BMI 33.9
[2019-10-12 10:36] LABS: Bedside Glucose 72 mg/dL (70-110)
[2019-10-12] MEDS: Gabapentin 600 MG Tablet PO (10:45)
[2019-10-12] MEDS: Acetaminophen 500 MG Tablet 1000 MG PO ×2 (10:54→22:38)
[2019-10-12] MEDS: Lactated Ringers 1,000 ML 125 ML IV ×3 (11:08→18:35)
[2019-10-12] MEDS: Magnesium Sulfate 4gm/100mL 4 GM/100 ML IV.SOLN. IV (11:10)
[2019-10-12] MEDS: Scopolamine 1mg/72hr Patch 1 PATCH TD (11:13)
[2019-10-12] MEDS: Cefazolin 2 GM in 0.9% Normal Saline 100 ML IV (12:18)
--- NOTE | 2019-10-12 14:52 | OP.PCM_ITS ---
Report of Operation Date of Procedure: 10/12/19 Pre-Operative Diagnosis: Left knee periprosthetic infection Post-Operative Diagnosis: Left knee periprosthetic infection Surgery/Procedure Performed:: Removal nonbiodegradable antibiotic delivery system from left knee. Revision left total knee replacement Description of Surgical Findings:: Stable knee. No gross evidence of infection. Good patella tracking. mechanical spreader operator: Adam Marie Type of Anesthesia:: General Anesthesiologist: Preston Mulligan Special Medications: 2 g Ancef, 2 g TXA lavage, 10 mg Decadron, joint cocktail (5 mg Duramorph, 30 mL of 0.5% Ropivicaine, 1000 units of epinephrine, 30 mg of Toradol). Vancomycin Specimen's removed: 3 separate specimens were sent to microbiology. Drains: Superior lateral drain Estimated Blood Loss (mL): 200 Fluids Replaced: 1400 mL crystalloid Description of Procedure: Implants used: Femur: Size 5 left TS triathlon femur with cemented 100 x 15 mm stem and 5 mm augments distally medially and laterally. 5 mm augment posteriorly medially Tibia: Size 4 universal tibial baseplate, triathlon with 50 x 15 mm stem Poly: Size 4, 19 mm TS polyethylene Patella: 29 mm press-fit patella Brief history operative indications: 69-year-old female who had a articulating spacer placed roughly 3 months ago for infected total knee replacement in the left knee. Patient went through 6 weeks of IV antibiotics. She had appropriate lab work showing appropriate to the infection. As planned at the time of her original surgery we elected to proceed to the OR for revision total knee replacement. Risks and benefits of the procedure were discussed the patient including but limited to blood loss, DVTs, PEs, nervous damage complex, the risk of anesthesia include loss of life. Patient demonstrate understanding was able to sign form consent. Procedure: On the date of procedure patient's left lower extremity was marked in the preoperative area. The patient was then taken back to the operating room where the patient was placed on the table in the supine position. All bony prominences were identified a well-padded. Anesthesia assumed control of the C-spine and airway and remained controlled throughout the remainder of the procedure. A tourniquet was placed on the left upper thigh and the leg was prepped in a sterile fashion. The surgeon then scrubbed at this time. Upon reentering the room right lower extremity was draped in a standard orthopedic fashion. A timeout was then called and everyone agreed upon the side, the site, the procedure to be performed, patient's identity and antibiotics given. An Esmarch bandage was used to exsanguinate the extremity and the tourniquet was placed up to 250 mmHg with the knee in flexion. A midline skin incision was made using the previous incision and extending it p roximally and distally to identify normal tissue planes. Medial and lateral flaps were developed appropriate releases. The standard medial parapatellar arthrotomy was made and then extended into a quadriceps snip and the patella was subluxed laterally. At this time an aggressive synovectomy was performed re- creating the medial gutter first, then the suprapatellar pouch than the lateral gutter. Once this was completed the knee was flexed up an osteotome was used to remove the tibial component. Next our attention was directed to the femur osteotomes and a bone tamp were used to break up the bone cement interface and remove the implant from the distal femur. Once this was completed the remainder of the cement was removed. Then we direct our attention to the canal where both the femoral and tibial nonbiodegradable antibiotic delivery cement dowels were removed. This was done with minimal bone loss. Our attention was then turned to the tibia where the intramedullary canal was re aline to 16 and intramedullary tibial cutting guide was used to make the appropriate tibial cut 90 degrees from the mechanical axis. A drop nataliia was then used to verify the cut. The tibia was then reamed for a size B tibial cone and a trial cone was placed. A size 4 tibial base plate was selected. the knee was flexed and the tibial component was pinned into place and the boss reamer was used to ream the proximal medullary canal. The trial implant was impacted in its prepared position. Our attention was then turned back to the femur or the femur intramedullary canal was reamed to 17 mm and the intramedullary reamer. Distal femoral was prepared using the trial cutting guide distal femoral jig using the standard [employer] medial epicondyle guide to set the joint line. Reciprocating saw was u sed to perform the distal and posterior cuts once we did this knew we would need a 5 mm augment medially, and 5 mm augment laterally. Based on these cuts we knew we would need a 5 mm augment medially, and no augment laterally. The box cut was made using the trial cutting guide The appropriate trials were then placed on the femur and tibia. A trial polyethylene was trialed to ensure proper balancing and stability of the knee. Patella tracking, was then verified and corrected appropriately as needed. Our attention was then directed to the patella. The patella was cut after removing the surrounding synovium making a flat cut and a 29 mm asymmetric patella peg guide was used. Trial patella was placed and patellar tracking was again checked and deemed appropriate. Final components were verified and opened, 6 liters of normal saline were irrigated throughout the joint under low-pressure lavage. Then the cement was mixed in a vacuum. [employer] Simplex cement with tobramycin was used. The wound was copiously irrigated with normal saline. When the cement was ready the components were cemented into place starting with the tibia, femur finally the patella was press-fit into place. The trial poly component was placed and the knee was placed in full extension. All excess cement was removed in the process. Once the cement had cured the tracking, alignment and balance were verified and a size 19 mm TS polyethylene component was placed. Once the final components were placed the proximal portion of the quadriceps snip was repaired using #5 Fiber[employer]. Chlorhexidine solution was used to lavage the joint for 1 minute. TXA was lavaged in the joint for 1 minute. And a lateral drain was placed. The wound was copiously irrigated with normal saline solution and the remainder of the periarticular injection was given. The wound was closed in a layer doe fashion using #1 vicryl interrupted sutures for the arthrotomy, 2-0 interrupted Vicryl for the subcuticular layer and jalen for final skin closure. A sterile compressive dressing was then placed. The patient was then awakened from anesthesia, transferred to the [facility] and transferred to the PACU for recovery. Post op plan DVT ppx: ASA 81mg BID, thigh high compression stockings Follow up: in office in 2 weeks for wound check PT: to start POD #0 at hospital, outpatient PT should be arranged. My physician web production assistant was a vital part of this case. He was important in appropriate retraction during the case, and protection of soft tissues during bony cuts. His intimate knowledge of the case and my steps aided in safe and expedient completion of the procedure as well as appropriate position of the leg during the case. He was also vital in assisting with closure under my direct supervision. - Complications No intraoperative complications - Admit VTE Documentation VTE Present on Admission: No VTE Mechan Device Prophylaxis: SCD's, Thigh High YOLANDA Hose VTE Pharm Prophylaxis ordered?: Yes
--- NOTE | 2019-10-12 15:45 | RAD_ITS ---
STUDY: X-RAY - LEFT KNEE REASON FOR EXAM: Female, 69 years old. Postoperative evaluation of revised left total knee arthroplasty. TECHNIQUE: 2 view(s) of the knee. COMPARISON: Prior left knee radiographs of July 06, 2019 FINDINGS: She is status post revision of her left total knee arthroplasty. The new femoral and tibial components remain anatomically aligned without evidence of loosening or disruption. The patella has again been resurfaced and is anatomically located. Normal postoperative soft tissue changes. The anterior incision is closed with jalen. 1 surgical drain at the operative site. RAD/Knee 1 or 2 Views IMPRESSION: Status post revised left total knee arthroplasty with no untoward bone, joint or hardware findings. Electronically Signed: May Mejía MD at 16:01 EST , Service support ,
--- NOTE | 2019-10-12 18:46 | PCM.PROGNOTE ---
<DaniloAna - Last Filed: 10/12/19 18:52> Subjective: Patient seen and examined. Underwent removal of nonbiodegradable antibiotic delivery system from left knee with revision of left total knee replacement by Dr. Clements. Reports minimal pain. Denies shortness of breath, nausea or other current symptoms. Hospitalist services consulted for medical management. - Physical Exam Vitals/I&O's: Vital Signs Temp Pulse Resp BP Pulse Ox 97.7 F L 71 16 141/75 H 94 10/12/19 18:00 10/12/19 18:00 10/12/19 18:00 10/12/19 18:00 10/12/19 18:00 Oxygen Flow Rate (L/min) 6 Oxygen Delivery Method Room Air Weight: 210 lb 5.136 oz Body Mass Index (BMI) 33.9 Intake and Output for Last 24 Hours 10/10/19 10/11/19 10/12/19 23:59 23:59 23:59 Intake Total 2090.25 / 2090.25 Output Total 120 / 120 Balance / General: Alert, Oriented x3, Cooperative HEENT: Atraumatic, PERRLA, EOMI, Normocephalic Neck: Supple, No JVD, Negative Carotid Bruits Lungs: Clear to auscultation, Diminished Cardiovascular: Regular rate, Regular Rhythm, Normal S1, Normal S2, No murmurs Abdomen: Bowel Sounds Present, Soft, Non Tender, Non-Distended Extremities: No clubbing, No cyanosis, No edema Skin: No rashes, No breakdown, - - Left knee postop dressing intact Musculoskeletal: No Tenderness to Palpation of Joints or Extremities, Tenderness - Left knee Neurological: Cranial nerves II-XII grossly intact, Neuro grossly intact Psych/Mental Status: Normal Affect, Appropriate Laboratory Results 10/12/19 10:29: POC Glucose 72 Current Medications Acetaminophen (Tylenol) 1,000 mg PO Q8 [facility] Cyclobenzaprine HCl (Flexeril) 10 mg PO QHS [facility] Enteral Nutritional Formula (Ensure Surgery) 237 ml PO TIDCM [facility] Last Admin: 10/12/19 18:01 Dose: Not Given Documented by: Famotidine (Pepcid) 20 mg PO DAILY [facility] Last Admin: 10/12/19 18:27 Dose: Not Given Documented by: Hydrochlorothiazide (Hctz) 25 mg PO QODAY [facility] Lactated Ringer's () 1,000 mls @ 125 mls/hr IV .Q8H [facility] Last Admin: 10/12/19 18:35 Dose: 125 mls/hr Documented by: Cefazolin Sodium () 1 gm in 50 mls @ 150 mls/hr IV Q8H [facility] Stop: 10/13/19 04:19 Vancomycin HCl 1,500 mg/ (Sodium Chloride) 530 mls @ 250 mls/hr IV X1 ONE Stop: 10/13/19 02:37 Ketorolac Tromethamine (Toradol) 15 mg IV Q6H PRN PRN PRN Reason: Pain Score 1-5/10 Stop: 10/14/19 07:15 Meloxicam (Mobic) 7.5 mg PO BID [facility] Ondansetron HCl (Zofran) 4 mg IV Q8H PRN PRN PRN Reason: NAUSEA Oxycodone HCl (Oxyir) 5 - 10 mg PO Q4H PRN PRN PRN Reason: Pain Score 4-10/10 Promethazine HCl (Phenergan) 12.5 mg IM Q6H PRN PRN; Protocol PRN Reason: NAUSEA/VOMITING Rivaroxaban (Xarelto) 20 mg PO DAILY@1700 [facility] Senna/Docusate Sodium (Senokot-S, Ilnda-Colace) 2 tablet PO BID [facility] Sertraline HCl (Zoloft) 50 mg PO QHS [facility] Sodium Chloride () 10 - 40 ml IV UD PRN PRN Reason: SALINE FLUSH Sotalol HCl (Betapace (G)) 40 mg PO BID [facility] Medical Necessity - Tobacco Use Smoking Status: Never smoker Tobacco Use: Non-smoker Assessment/Plan All Active Problems 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 Status post removal nonbiodegradable antibiotic delivery system from left knee with revision left total knee replacement postop day [address] Clements-management per Ortho. PT/OT. PRN pain regimen. On Xarelto. BMP and CBC in a.m. 2. Paroxysmal atrial fibrillation-continue sotalol, Xarelto. 3. Hypertension-continue hydrochlorothiazide, sotalol regimen. 4. Fibromyalgia 5. Depression-continue sertraline regimen. DVT prophylaxis-Xarelto This patient was seen by Ana Danilo, FIRST BEATER-C under the supervision of Dr. Valentin. <Ely Valentin - Last Filed: 10/12/19 19:17> - Physical Exam Vitals/I&O's: Vital Signs Temp Pulse Resp BP Pulse Ox 97.7 F L 71 16 141/75 H 94 10/12/19 18:00 10/12/19 18:00 10/12/19 18:00 10/12/19 18:00 10/12/19 18:00 Oxygen Flow Rate (L/min) 6 Oxygen Delivery Method Room Air Weight: 95.4 kg Body Mass Index (BMI) 33.9 Intake and Output for Last 24 Hours 10/10/19 10/11/19 10/12/19 23:59 23:59 23:59 Intake Total 2090.25 / 2090.25 Output Total 120 / 120 Balance / Laboratory Results 10/12/19 10:29: POC Glucose 72 Current Medications Acetaminophen (Tylenol) 1,000 mg PO Q8 [facility] Cyclobenzaprine HCl (Flexeril) 10 mg PO QHS [facility] Enteral Nutritional Formula (Ensure Surgery) 237 ml PO TIDCM [facility] Last Admin: 10/12/19 18:01 Dose: Not Given Documented by: Famotidine (Pepcid) 20 mg PO DAILY [facility] Last Admin: 10/12/19 18:27 Dose: Not Given Documented by: Hydrochlorothiazide (Hctz) 25 mg PO QODAY [facility] Lactated Ringer's () 1,000 mls @ 125 mls/hr IV .Q8H [facility] Last Admin: 10/12/19 18:35 Dose: 125 mls/hr Documented by: Cefazolin Sodium () 1 gm in 50 mls @ 150 mls/hr IV Q8H [facility] Stop: 10/13/19 04:19 Vancomycin HCl 1,500 mg/ (Sodium Chloride) 530 mls @ 250 mls/hr IV X1 ONE Stop: 10/13/19 02:37 Ketorolac Tromethamine (Toradol) 15 mg IV Q6H PRN PRN PRN Reason: Pain Score 1-5/10 Stop: 10/14/19 07:15 Meloxicam (Mobic) 7.5 mg PO BID [facility] Ondansetron HCl (Zofran) 4 mg IV Q8H PRN PRN PRN Reason: NAUSEA Oxycodone HCl (Oxyir) 5 - 10 mg PO Q4H PRN PRN PRN Reason: Pain Score 4-10/10 Promethazine HCl (Phenergan) 12.5 mg IM Q6H PRN PRN; Protocol PRN Reason: NAUSEA/VOMITING Rivaroxaban (Xarelto) 20 mg PO DAILY@1700 [facility] Senna/Docusate Sodium (Senokot-S, Linda-Colace) 2 tablet PO BID [facility] Sertraline HCl (Zoloft) 50 mg PO QHS [facility] Sodium Chloride () 10 - 40 ml IV UD PRN PRN Reason: SALINE FLUSH Sotalol HCl (Betapace (G)) 40 mg PO BID [facility] Assessment/Plan This patient was seen in conjunction with Ana Carrasco [employer] [facility]ATER. I have independently interviewed and examined the patient and reviewed pertinent historical, laboratory, and other data. Please refer to her note for patient's presentation, findings, and recommendations. 69-year-old female with past medical history of hypertension, paroxysmal atrial fibrillation, fibromyalgia who comes for elective revision of left total knee replacement. Patient was seen in the immediate postop. Her pain is fairly controlled. Denied any fever or chills or nausea or vomiting. Vitals were reviewed -stable Physical Exam: Gen: Comfortable, not pale, not jaundiced, alert oriented x3 CVS:HS I +II, regular, no murmurs RESP: Diminished, no added sounds GI: BS present and normal, nontender, no palpable organs EXT:No edema Labs reviewed: ASSESSMENT: 1. POD #0 status post removal nonbiodegradable antibiotic delivery system from left knee, revision left total knee replacement 2. Paroxysmal atrial fibrillation 3. Hypertension 4. Fibromyalgia 5. Depression Meds reviewed Plan: Continue on home medications Will get an EKG for this admission Continue with pain control Continue orthopedic recommendations Code Visit Inpatient E&M: 10362 Subs Hosp L2
--- NOTE | 2019-10-12 19:15 | EKG12_ITS ---
Test Reason : ARRYHTHMIA Blood Pressure : / mmHG Vent. Rate : 068 BPM Atrial Rate : 068 BPM P-R Int : 168 ms QRS Dur : 088 ms QT Int : 336 ms P-R-T Axes : 044 -01 -88 degrees QTc Int : 357 ms Normal sinus rhythm Nonspecific T-Wave Abnormality Confirmed by SHANDRA SWAN, VIANNEY ([id number]), managing editor JOHN EDMONDS ([id number]) on 10/19/2019 1:08:15 PM Referred By: Antonio Clements Confirmed By:VIANNEY DEVI MD
[2019-10-12] MEDS: Cefazolin 1 GM/50 ML BAG IV (20:16)
[2019-10-12] MEDS: Senna/Docusate Sodium 1 Tablet 2 TABLET PO (22:38)
[2019-10-12] MEDS: Sertraline 50 MG Tablet PO (22:38)
[2019-10-12] MEDS: cycloBENZAPRine HCl 10 MG Tablet PO (22:39)
[2019-10-12] MEDS: Sotalol Hydrochloride 80 MG Tablet 40 MG PO (22:49)
[2019-10-13] VITALS (7 sets, daily range): BP systolic 116–158; BP diastolic 46–137; PULSE 67–84; RESP 16–20; TEMP 36.6–37.3; O2SAT 92–99
[2019-10-13] MEDS: Cefazolin 1 GM/50 ML BAG IV (04:19)
[2019-10-13] MEDS: oxyCODONE 5 MG Tablet PO ×4 (04:21→18:06)
[2019-10-13] MEDS: Lactated Ringers 1,000 ML 125 ML IV (04:21)
[2019-10-13] MEDS: Acetaminophen 500 MG Tablet 1000 MG PO ×3 (06:28→20:50)
--- NOTE | 2019-10-13 06:58 | PN.ORTHO_ITS ---
Subjective: The patient was sitting in bed upon examination. Patient denies any chest pain, shortness of breath, dizziness, lightheadedness, nausea or vomiting, or calf pain. Pain is controlled on medications. No adverse overnight events. Overall patient has been doing well. She did require a Hemovac drain due to bleeding postoperatively. Patient has had 260 mL of output of the Hemovac drain. She is currently on Xarelto for DVT prophylaxis. Objective: Vital signs stable and afebrile. Patient is able to plantarflex and dorsiflex actively. Sensation is intact to light touch to saphenous, sural, superficial and deep peroneal, and tibial distribution. Dressing is clean dry and intact. Hemovac drain: There is been 260 mm output of the drain. There is currently minimal output in the canister. Negative Homans bilaterally, negative signs and symptoms of DVT. - Physical Exam Vitals/I&O's: Vital Signs Temp Pulse Resp BP Pulse Ox 98.7 F 67 16 133/65 H 99 10/13/19 02:26 10/13/19 02:26 10/13/19 02:26 10/13/19 02:26 10/13/19 02:26 Oxygen Flow Rate (L/min) 1 Oxygen Delivery Method Room Air Weight: 95.4 kg Body Mass Index (BMI) 33.9 Intake and Output for Last 24 Hours 10/11/19 10/12/19 10/13/19 23:59 23:59 23:59 Intake Total 2349.58 / 2349.58 2489.17 / 2489.17 Output Total 120 / 260 1340 / 1340 Balance 2229.58 / 2089.58 1149.17 / 1149.17 General: Alert, Oriented x3, Cooperative, No apparent distress Laboratory Results 10/12/19 10:29: POC Glucose 72 10/13/19 06:40: WBC Pending, RBC Pending, Hgb Pending, Hct Pending, MCV Pending, MCH Pending, MCHC Pending, RDW Std Deviation Pending, RDW Coeff of Pat Pending, Plt Count Pending 10/13/19 06:40: Sodium Pending, Potassium Pending, Chloride Pending, Carbon Dioxide Pending, Anion Gap Pending, BUN Pending, Creatinine Pending, Est GFR (MDRD) Af Amer Pending, Est GFR (MDRD) Non-Af Pending, BUN/Creatinine Ratio Pending, Glucose Pending, Calcium Pending Current Medications Acetaminophen (Tylenol) 1,000 mg PO Q8 [facility] Last Admin: 10/13/19 06:28 Dose: 1,000 mg Documented by: Cyclobenzaprine HCl (Flexeril) 10 mg PO QHS [facility] Last Admin: 10/12/19 22:39 Dose: 10 mg Documented by: Enteral Nutritional Formula (Ensure Surgery) 237 ml PO TIDCM [facility] Last Admin: 10/12/19 18:01 Dose: Not Given Documented by: Famotidine (Pepcid) 20 mg PO DAILY [facility] Last Admin: 10/12/19 18:27 Dose: Not Given Documented by: Hydrochlorothiazide (Hctz) 25 mg PO QODAY [facility] Ketorolac Tromethamine (Toradol) 15 mg IV Q6H PRN PRN PRN Reason: Pain Score 1-5/10 Stop: 10/14/19 07:15 Meloxicam (Mobic) 7.5 mg PO BID [facility] Ondansetron HCl (Zofran) 4 mg IV Q8H PRN PRN PRN Reason: NAUSEA Oxycodone HCl (Oxyir) 5 - 10 mg PO Q4H PRN PRN PRN Reason: Pain Score 4-10/10 Last Admin: 10/13/19 04:21 Dose: 5 mg Documented by: Promethazine HCl (Phenergan) 12.5 mg IM Q6H PRN PRN; Protocol PRN Reason: NAUSEA/VOMITING Rivaroxaban (Xarelto) 20 mg PO DAILY@1700 [facility] Senna/Docusate Sodium (Senokot-S, Linda-Colace) 2 tablet PO BID [facility] Last Admin: 10/12/19 22:38 Dose: 2 tablet Documented by: Sertraline HCl (Zoloft) 50 mg PO QHS [facility] Last Admin: 10/12/19 22:38 Dose: 50 mg Documented by: Sodium Chloride () 10 - 40 ml IV UD PRN PRN Reason: SALINE FLUSH Sotalol HCl (Betapace (G)) 40 mg PO BID [facility] Last Admin: 10/12/19 22:49 Dose: 40 mg Documented by: Medical Necessity - Tobacco Use Smoking Status: Never smoker Tobacco Use: Non-smoker Assessment/Plan All Active Problems 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 S/P left knee removal antibiotic spacer with placement of left revision total knee arthroplasty POD #1 2. Continue Pain Medications: Tylenol and oxycodone 3. DVT Prophylaxis: Patient has been placed back on her Xarelto due to history of atrial fibrillation 4. PT/OT: Weightbearing as tolerated with walker 5. H & H: Lab work is pending for CBC and BMP 6. Encouraged Incentive Spirometry 7. Hemovac drain: There is been currently 260 mL output. Plan will be for removal of the Hemovac drain tomorrow. 8. Continue postoperative medical management per medicine: Appreciate assistance for postoperative care 9. Continue with antibiotics while following cultures: Currently on doxycycline 1 week postoperatively. Cultures pending 10. Disposition: Plan will be for possible discharge home tomorrow with home health care. Case management/social media senior associate will be involved with appropriate placement.
[2019-10-13 07:01] LABS: Hemoglobin 8.3 g/dL (12.0-15.0); Mean Corp Hgb Conc 30.7 g/dL (32-36); Mean Corpuscular Hgb 27.1 pg (27.0-32.0); Mean Corpuscular Volume 88.2 fL (81-99); Mean Platelet Vol. 8.9 fl (6.2-12.0); Platelet Count 133 K/mm3 (150-450); RBC Distribution Width CV 15.5 % (11.6-14.6); RBC Distribution Width SD 49.9 fl (35.1-43.9); Red Blood Count 3.06 M/mm3 (4.2-5.4); White Blood Count 5.5 K/mm3 (4.4-11.0)
[2019-10-13 07:13] LABS: Anion Gap 5 (5-15); BUN 16 mg/dL (7-18); BUN/Creat Ratio 18.6 RATIO (10-20); Calcium,Total 7.8 mg/dL (8.5-10.1); Chloride 107 mmol/L (98-107); Creatinine, Serum 0.86 mg/dL (0.55-1.02); EST Glomerular Filtration Rate 70 mL/min (>60); Est Glom Filt Rate - Afr Amer 84 mL/min (>60); Glucose 147 mg/dL (74-106); Potassium 4.5 mmol/L (3.5-5.1); Sodium Level 140 mmol/L (136-145)
[2019-10-13] MEDS: Ensure Surgery 237 ML LIQUID PO ×3 (08:56→17:31)
[2019-10-13] MEDS: hydroCHLOROthiazide 25 MG Tablet PO (09:57)
[2019-10-13] MEDS: Sotalol Hydrochloride 80 MG Tablet 40 MG PO ×2 (09:57→20:46)
[2019-10-13] MEDS: Doxycycline 100 MG CAPSULE PO ×2 (09:58→20:47)
[2019-10-13] MEDS: Senna/Docusate Sodium 1 Tablet 2 TABLET PO ×2 (09:58→20:50)
[2019-10-13] MEDS: Famotidine 20 MG Tablet PO (09:58)
--- NOTE | 2019-10-13 10:30 | CASEMGMT ---
YU PATRICIA Face to Face with patient for initial transition planning/care coordination assessment. YU PATRICIA introduced self and role at [facility]. Patient lying in bed, alert and oriented. Patient willing to participate in assessment and is able to answer all questions appropriately. Care providers, pharmacy, and demographics verified. Patient wishes to discharge home and would like HHC with [facility], whom she has had in the past. Patient states she has no further needs or concerns at this time. CM to follow for discharge planning needs that may arise. PCP: Carlota Delgadillo Specialists: grecia Clements [facility] Prescription Benefit: yes Living Will/HPOA: none LNOK: Significant Other Living Arrangements: Patient lives with significant other in mobile home with ramp to enter the home. Transportation: Significant other DME/HHC: Patient has shower chair, bedside commode, and walker at home. Patient has had [facility] in the past. YU PATRICIA sent referral to [facility] and waiting for acceptance. Disposition Plan: Patient to discharge to home with HHC, family support, and follow-up plans in place. Nuha ADAMSON, RN, CM
--- NOTE | 2019-10-13 15:25 | PN_ITS ---
Reason for Visit: left knee pain Subjective: Pt resting comfortably in chair at bedside, seen and examined after working with OT. Some pain with ambulation, controlled at rest. No LH/dizziness. No SOB. No cough. No fever/chills. No nausea or vomting. Vitals/I&O's: Vital Signs Temp Pulse Resp BP Pulse Ox 99.1 F 84 18 134/62 H 92 10/13/19 14:14 10/13/19 14:14 10/13/19 14:14 10/13/19 14:14 10/13/19 14:14 Oxygen Flow Rate (L/min) 1 Oxygen Delivery Method Room Air Weight: 210 lb 5.136 oz Body Mass Index (BMI) 33.9 Intake and Output for Last 24 Hours 10/11/19 10/12/19 10/13/19 23:59 23:59 23:59 Intake Total 2349.58 / 2349.58 3739.17 / 3739.17 Output Total 120 / 260 1340 / 1340 Balance 2229.58 / 2089.58 2399.17 / 2399.17 General: Alert, Oriented x3, Cooperative HEENT: Atraumatic, PERRLA, EOMI, Normocephalic Neck: Supple, No JVD, Negative Carotid Bruits Lungs: Clear to auscultation, Normal air movement Cardiovascular: Regular rate, No murmurs Abdomen: Bowel Sounds Present, Soft, Non Tender Extremities: No edema, Capillary Refill Less than 3 Seconds Skin: No rashes, No breakdown Musculoskeletal: No Tenderness to Palpation of Joints or Extremities Neurological: Cranial nerves II-XII grossly intact Psych/Mental Status: Normal Affect, Appropriate Microbiology Past 72 Hours 10/12/19 Unknown Tissue - Knee Gram Stain - Final 10/12/19 Unknown Tissue - Knee Wound Culture - Preliminary No growth-Final to follow 10/12/19 Unknown Tissue - Knee Gram Stain - Final 10/12/19 Unknown Tissue - Knee Wound Culture - Preliminary No growth-Final to follow 10/12/19 Unknown Tissue - Knee Gram Stain - Final 10/12/19 Unknown Tissue - Knee Wound Culture - Preliminary No growth-Final to follow Laboratory Results 10/13/19 06:40: WBC 5.5, RBC 3.06 L, Hgb 8.3 L, Hct 27.0 L, MCV 88.2, MCH 27.1, MCHC 30.7 L, RDW Std Deviation 49.9 H, RDW Coeff of Pat 15.5 H, Plt Count 133 L, MPV 8.9 10/13/19 06:40: Sodium 140, Potassium 4.5, Chloride 107, Carbon Dioxide 28.0, Anion Gap 5, BUN 16, Creatinine 0.86, Estim Creat Clear Calc 57.80, Est GFR (MDRD) Af Amer 84, Est GFR (MDRD) Non-Af 70, BUN/Creatinine Ratio 18.6, Glucose 147 H, Calcium 7.8 L Current Medications Acetaminophen (Tylenol) 1,000 mg PO Q8 [facility] Last Admin: 10/13/19 14:13 Dose: 1,000 mg Documented by: Cyclobenzaprine HCl (Flexeril) 10 mg PO QHS [facility] Last Admin: 10/12/19 22:39 Dose: 10 mg Documented by: Doxycycline Monohydrate (Doxycycline) 100 mg PO BID [facility] Last Admin: 10/13/19 09:58 Dose: 100 mg Documented by: Enteral Nutritional Formula (Ensure Surgery) 237 ml PO TIDCM [facility] Last Admin: 10/13/19 12:15 Dose: 237 ml Documented by: Famotidine (Pepcid) 20 mg PO DAILY [facility] Last Admin: 10/13/19 09:58 Dose: 20 mg Documented by: Hydrochlorothiazide (Hctz) 25 mg PO QODAY [facility] Last Admin: 10/13/19 09:57 Dose: 25 mg Documented by: Ketorolac Tromethamine (Toradol) 15 mg IV Q6H PRN PRN PRN Reason: Pain Score 1-5/10 Stop: 10/14/19 07:15 Meloxicam (Mobic) 7.5 mg PO BID [facility] Ondansetron HCl (Zofran) 4 mg IV Q8H PRN PRN PRN Reason: NAUSEA Oxycodone HCl (Oxyir) 5 - 10 mg PO Q4H PRN PRN PRN Reason: Pain Score 4-10/10 Last Admin: 10/13/19 14:12 Dose: 5 mg Documented by: Promethazine HCl (Phenergan) 12.5 mg IM Q6H PRN PRN; Protocol PRN Reason: NAUSEA/VOMITING Rivaroxaban (Xarelto) 20 mg PO DAILY@1700 [facility] Senna/Docusate Sodium (Senokot-S, Linda-Colace) 2 tablet PO BID [facility] Last Admin: 10/13/19 09:58 Dose: 2 tablet Documented by: Sertraline HCl (Zoloft) 50 mg PO QHS [facility] Last Admin: 10/12/19 22:38 Dose: 50 mg Documented by: Sodium Chloride () 10 - 40 ml IV UD PRN PRN Reason: SALINE FLUSH Sotalol HCl (Betapace (G)) 40 mg PO BID [facility] Last Admin: 10/13/19 09:57 Dose: 40 mg Documented by: [facility]OKE Vital Signs/Narrative: Vital Signs Temp Pulse Resp BP Pulse Ox 10/13/19 14:14 99.1 F 84 18 134/62 H 92 Medical Necessity - Tobacco Use Smoking Status: Never smoker Tobacco Use: Non-smoker Assessment/Plan All Active Problems 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 Left total knee antibiotic spacer removal and left total knee revision - POD#1. Doing well. Pain controlled. Ambulating. 2. anemia - Preop Hgb 12.0-->8.3. Recheck in AM. Asymptomatic. 3. Thrombocytopenia - Preop Plt 221-->133. Recheck in AM. 4. PAfib - xarelto, sotalol 5. HTN _ stable 6. Fibromyalgia, Depression - sertraline Continue for the opportunity to participate in the care of this patient. This patient was seen by Favian Fernandez PA-C under the supervision of Doctor Marr.
[2019-10-13] MEDS: Rivaroxaban 20 MG Tablet PO (18:06)
[2019-10-13] MEDS: Ketorolac 15 MG/ML Vial IV (20:31)
[2019-10-13] MEDS: 0.9% Saline Lock 10 ML Syringe IV (20:32)
[2019-10-13] MEDS: Sertraline 50 MG Tablet PO (20:48)
[2019-10-13] MEDS: cycloBENZAPRine HCl 10 MG Tablet PO (20:50)
[2019-10-14] VITALS (11 sets, daily range): BP systolic 97–145; BP diastolic 40–87; PULSE 69–88; RESP 16; TEMP 36.5–37.3; O2SAT 96–100
[2019-10-14 05:53] LABS: Hematocrit 25.3 % (37-47); Hemoglobin 7.7 g/dL (12.0-15.0); Mean Corp Hgb Conc 30.4 g/dL (32-36); Mean Corpuscular Hgb 26.7 pg (27.0-32.0); Mean Corpuscular Volume 87.8 fL (81-99); Mean Platelet Vol. 9.4 fl (6.2-12.0); Platelet Count 117 K/mm3 (150-450); RBC Distribution Width CV 15.7 % (11.6-14.6); RBC Distribution Width SD 50.4 fl (35.1-43.9); Red Blood Count 2.88 M/mm3 (4.2-5.4)
[2019-10-14] MEDS: Acetaminophen 500 MG Tablet 1000 MG PO ×2 (06:09→13:13)
--- NOTE | 2019-10-14 07:17 | PCM.PN.ORT ---
Subjective: The patient was sitting in bedside chair upon examination. Patient denies any chest pain, shortness of breath, dizziness, lightheadedness, nausea or vomiting, or calf pain. Pain is controlled on medications. No adverse overnight events. Overall patient is doing well with regards to her postoperative left knee. The pain is been controlled on medications. Patient vital signs have been stable. She is not having any dizziness or lightheadedness. Patient does report she has had history of anemia in the past. Patient has had Hemovac drain and drainage has trending down. There is been 60 mL drainage from last visit. Patient is on Xarelto chronically secondary to atrial fibrillation. Objective: Vital signs stable and afebrile. Patient is able to plantarflex and dorsiflex actively. Sensation is intact to light touch to saphenous, sural, superficial and deep peroneal, and tibial distribution. Dressing is clean dry and intact. Positive postoperative swelling to the left knee Hemovac drain in place with minimal output in canister. There is been 60 mL drainage since last visit. Negative Homans bilaterally, negative signs and symptoms of DVT. - Physical Exam Vitals/I&O's: Vital Signs Temp Pulse Resp BP Pulse Ox 97.7 F L 69 16 110/61 98 10/14/19 02:36 10/14/19 02:36 10/14/19 02:36 10/14/19 02:36 10/14/19 02:36 Oxygen Flow Rate (L/min) 1 Oxygen Delivery Method Room Air Weight: 95.4 kg Body Mass Index (BMI) 33.9 Intake and Output for Last 24 Hours 10/12/19 10/13/19 10/14/19 23:59 23:59 23:59 Intake Total 2349.58 / 2349.58 4959.17 / 5159.17 500 / 500 Output Total 120 / 260 1340 / 1390 60 / 60 Balance 2229.58 / 2089.58 3619.17 / 3769.17 440 / 440 General: Alert, Oriented x3, Cooperative, No apparent distress Microbiology Past 72 Hours 10/12/19 Unknown Tissue - Knee Gram Stain - Final 10/12/19 Unknown Tissue - Knee Wound Culture - Preliminary No growth-Final to follow 10/12/19 Unknown Tissue - Knee Gram Stain - Final 10/12/19 Unknown Tissue - Knee Wound Culture - Preliminary No growth-Final to follow 10/12/19 Unknown Tissue - Knee Gram Stain - Final 10/12/19 Unknown Tissue - Knee Wound Culture - Preliminary No growth-Final to follow Laboratory Results 10/14/19 05:20: WBC 4.0 L, RBC 2.88 L, Hgb 7.7 L, Hct 25.3 L, MCV 87.8, MCH 26.7 L, MCHC 30.4 L, RDW Std Deviation 50.4 H, RDW Coeff of Pat 15.7 H, Plt Count 117 L, MPV 9.4 Current Medications Acetaminophen (Tylenol) 1,000 mg PO Q8 [facility] Last Admin: 10/14/19 06:09 Dose: 1,000 mg Documented by: Cyclobenzaprine HCl (Flexeril) 10 mg PO QHS [facility] Last Admin: 10/13/19 20:50 Dose: 10 mg Documented by: Doxycycline Monohydrate (Doxycycline) 100 mg PO BID [facility] Last Admin: 10/13/19 20:47 Dose: 100 mg Documented by: Enteral Nutritional Formula (Ensure Surgery) 237 ml PO TIDCM [facility] Last Admin: 10/13/19 17:31 Dose: 237 ml Documented by: Famotidine (Pepcid) 20 mg PO DAILY [facility] Last Admin: 10/13/19 09:58 Dose: 20 mg Documented by: Hydrochlorothiazide (Hctz) 25 mg PO QODAY [facility] Last Admin: 10/13/19 09:57 Dose: 25 mg Documented by: Meloxicam (Mobic) 7.5 mg PO BID [facility] Ondansetron HCl (Zofran) 4 mg IV Q8H PRN PRN PRN Reason: NAUSEA Oxycodone HCl (Oxyir) 5 - 10 mg PO Q4H PRN PRN PRN Reason: Pain Score 4-10/10 Last Admin: 10/13/19 18:06 Dose: 5 mg Documented by: Promethazine HCl (Phenergan) 12.5 mg IM Q6H PRN PRN; Protocol PRN Reason: NAUSEA/VOMITING Rivaroxaban (Xarelto) 20 mg PO DAILY@1700 [facility] Last Admin: 10/13/19 18:06 Dose: 20 mg Documented by: Senna/Docusate Sodium (Senokot-S, Linda-Colace) 2 tablet PO BID [facility] Last Admin: 12/12/19 20:50 Dose: 2 tablet Documented by: Sertraline HCl (Zoloft) 50 mg PO QHS [facility] Last Admin: 10/13/19 20:48 Dose: 50 mg Documented by: Sodium Chloride () 10 - 40 ml IV UD PRN PRN Reason: SALINE FLUSH Last Admin: 10/13/19 20:32 Dose: 10 ml Documented by: Sotalol HCl (Betapace (G)) 40 mg PO BID [facility] Last Admin: 10/13/19 20:46 Dose: 40 mg Documented by: Medical Necessity - Tobacco Use Smoking Status: Never smoker Tobacco Use: Non-smoker Assessment/Plan All Active Problems 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 S/P left knee removal antibiotic spacer with placement of left revision total knee arthroplasty POD #2 2. Continue Pain Medications: Tylenol and oxycodone 3. DVT Prophylaxis: Patient has been placed back on her Xarelto due to history of atrial fibrillation 4. PT/OT: Weightbearing as tolerated with walker 5. Postoperative anemia secondary to blood loss and dilution: H & H: 7.7/25.3, asymptomatic. Preoperatively patient came in a 12.0. Case was discussed with Dr. Kareem Clements and at this time he would like ferrous sulfate 325 mg twice daily and folic acid 1 mg daily added postoperatively. 6. Thrombocytopenia: Currently 117, preoperatively patient came in at 221 platelet count. 7. Encouraged Incentive Spirometry 8. Hemovac drain: There has been 60 mL output. Hemovac drain removed today and steri strip placed. Compressive dressing was then placed. Later today a new AG mepilex dressing will be placed prior to leaving for possible discharge. 9. Continue postoperative medical management per medicine: Appreciate assistance for postoperative care. Case was discussed with medicine and due to orthostatic changes 1 unit PRBC's will be given. If patient responds well she will be okay for discharge later today. However, patient may require additional stay possibly. 10. Continue with antibiotics while following cultures: Currently on doxycycline 1 week postoperatively. Cultures currently with no growth 11. Disposition: Plan will be for possible discharge home today with home health care. Case management/social work assistant will be involved with appropriate placement. Patient will continue with the doxycycline 1 week postoperatively. She will also be placed on ferrous sulfate twice daily and folic acid daily with repeat CBC and BMP with her primary care physician in 1 week. Prescriptions will be E scribed to [facility]. She will follow-up per postop instructions. As long as patient is cleared by medicine plan will be for discharge later this evening. Continue with physical therapy. I have reviewed the [place] Automated Rx Reporting System (OARRS) report for this patient for refill pattern and other prescriber involvement as part of the appropriate surveillance for the provision of acute and chronic controlled medications. The report was requested and reviewed on the date of this entry and was considered in the prescribing process.
--- NOTE | 2019-10-14 07:33 | PCM.DC.TKR ---
Discharge Diet: No Restrictions Discharge Activity: May Not Drive May shower in (days): 1 - As long as dressing is intact to skin and no drainage. Ice area for (Minutes): 20 - Every 1-2 hours while awake Weight Bearing Status: Weight bearing as tolerated - With walker Elevate: Operative Extremity Additional Activity Instructions:: Wear elastic stockings for 2 weeks after your surgery. Call your doctor if your incision/area has: Continuous Slow Oozing, Sudden Increased Bleeding, Increased Pain/ Swelling, Increased Redness, Foul Smelling Discharge Call your doctor if you observe: Fever of 101 or Higher, Coldness, Increased Pain, Numbness or Tingling, Change in Color, Calf discomfort, Uncontrolled pain Remove Dressing in (days):: 4 - Okay to remove dressing on October 18, 2019 Additional Instructions: Follow orthopedic postop instructions Antibiotic: Take antibiotic as prescribed but take away from the ferrous sulfate at least 4 hours before and after. Allergies/Adverse Reactions: Allergies diazepam [From Valium] Allergy (Verified 09/21/19 13:08) Other PARANOIA latex Allergy (Verified 09/21/19 13:08) Rash lisinopril Allergy (Verified 09/21/19 13:08) Anaphylaxis morphine Allergy (Verified 09/21/19 13:08) Rash Medications to take at Discharge Cyclobenzaprine HCl 10 mg PO QHS 06/22/19 Hydrochlorothiazide [Hctz] 25 mg PO QODAY 06/22/19 Lutein 6 mg PO DAILY 06/22/19 Rivaroxaban [Xarelto] 20 mg PO DAILY 06/22/19 Sertraline HCl [Zoloft] 50 mg PO DAILY 06/22/19 Sotalol HCl [Sotalol] 40 mg PO BID 06/22/19 Acetaminophen [Tylenol] 1,000 mg PO Q8 14 Days tab 10/14/19 Doxycycline 100 mg PO BID #10 cap 10/14/19 Ferrous Sulfate 325 mg PO BIDCM #42 tab 10/14/19 Folic Acid 1 mg PO DAILY@0800 #21 tab 10/14/19 Oxycodone [Oxyir] 5 - 10 mg PO Q4H PRN PRN 4 Days #48 tab 10/14/19 Senna/Docusate Sodium [Senokot-S] 2 tab PO BID #10 tab 10/14/19 The following prescriptions were given: Doxycycline 100 mg PO BID #10 cap Transmission Status: Received by [facility] Ferrous Sulfate 325 mg PO BIDCM #42 tab Transmission Status: Received by [facility] Folic Acid 1 mg PO DAILY@0800 #21 tab Transmission Status: Received by [facility] Oxycodone [Oxyir] 5 - 10 mg PO Q4H PRN PRN 4 Days #48 tab PRN Reason: Pain Score 4-1010 Transmission Status: Received by [facility] Senna/Docusate Sodium [Senokot-S] 2 tab PO BID #10 tab Transmission Status: Received by [facility] Primary Care Physician: Carlota Delgadillo NP-C [Primary Care Provider] - Please follow up with your Primary Care Physician in: 1 week for repeat CBC and BMP for anemia/thrombocytopenia Test Results: Test results from this visit will be discussed in further detail at your follow-up appointment, if applicable. Please Follow Up With: Home Health physical therapy Please Follow Up With: Antonio Clements MD When: 10/27/19 @ 1:45 pm
[2019-10-14] MEDS: Ensure Surgery 237 ML LIQUID PO ×2 (07:43→13:13)
[2019-10-14] MEDS: oxyCODONE 5 MG Tablet PO (08:39)
[2019-10-14] MEDS: Folic Acid 1 MG Tablet PO (08:40)
--- NOTE | 2019-10-14 10:22 | CASEMGMT ---
YU PATRICIA called [facility] to confirm acceptance. [facility] is able to accept the patient. YU PATRICIA updated the patient. YU CM to fax discharge instructions when available.
[2019-10-14] MEDS: Famotidine 20 MG Tablet PO (11:34)
[2019-10-14] MEDS: Doxycycline 100 MG CAPSULE PO (11:34)
[2019-10-14] MEDS: Sotalol Hydrochloride 80 MG Tablet 40 MG PO (11:34)
[2019-10-14] MEDS: Senna/Docusate Sodium 1 Tablet 2 TABLET PO (11:34)
--- NOTE | 2019-10-14 12:18 | PCM.PN.HOSP ---
<Favian Fernandez - Last Filed: 10/14/19 12:18> Reason for Visit: anemia Subjective: Pt with no LH/dizziness. Pain controlled. Ongoing fatigue. Very little sleep last night. No SOB. Doing well with therapy. Agreeable to 1 unit PRBC transfusion. Vitals/I&O's: Vital Signs Temp Pulse Resp BP Pulse Ox 99.2 F H 76 16 118/49 L 100 10/14/19 12:04 10/14/19 12:04 10/14/19 12:04 10/14/19 12:04 10/14/19 12:04 Oxygen Flow Rate (L/min) 1 Oxygen Delivery Method Room Air Weight: 210 lb 5.136 oz Body Mass Index (BMI) 33.9 Orthostatic Vital Signs Start: 10/14/19 08:46 Freq: q24h Status: Active Protocol: Activity Type Activity Date Activity User E-Sign Co-Sign Detail Recorded Client Recorded Date Recorded By Document 10/14/19 08:55 SARAH [id number] 10/14/19 08:59 SARAH 10/14/19 08:55 Orthostatic Vitals Standing -Blood Pressure (90/60-120/80) 97/47 L -Extremity Use Right Arm -Pulse Rate (60-100) 82 Sitting -Blood Pressure (90/60-120/80) 127/59 H -Extremity Use Right Arm -Pulse Rate (60-100) 72 Lying -Blood Pressure (90/60-120/80) 133/48 H -Extremity Use Right Arm -Pulse Rate (60-100) 81 Intake and Output for Last 24 Hours 10/12/19 10/13/19 10/14/19 23:59 23:59 23:59 Intake Total 2349.58 / 2349.58 4959.17 / 5159.17 500 / 500 Output Total 120 / 260 1340 / 1390 60 / 60 Balance 2229.58 / 2089.58 3619.17 / 3769.17 440 / 440 General: Alert, Oriented x3, Cooperative HEENT: Atraumatic, PERRLA, EOMI, Normocephalic Neck: Supple, No JVD, Negative Carotid Bruits Lungs: Clear to auscultation, Normal air movement Cardiovascular: Regular rate, No murmurs Abdomen: Bowel Sounds Present, Soft, Non Tender Extremities: No edema, Capillary Refill Less than 3 Seconds Skin: No rashes, No breakdown Musculoskeletal: No Tenderness to Palpation of Joints or Extremities Neurological: Cranial nerves II-XII grossly intact Psych/Mental Status: Normal Affect, Appropriate, Alert and oriented to time, place, person, mood and affect Microbiology Past 72 Hours 10/12/19 Unknown Tissue - Knee Gram Stain - Final 10/12/19 Unknown Tissue - Knee Wound Culture - Preliminary No growth-Final to follow 10/12/19 Unknown Tissue - Knee Anaerobic Culture - Preliminary No growth in 48 hours. 10/12/19 Unknown Tissue - Knee Gram Stain - Final 10/12/19 Unknown Tissue - Knee Wound Culture - Preliminary No growth-Final to follow 10/12/19 Unknown Tissue - Knee Anaerobic Culture - Preliminary No growth in 48 hours. 10/12/19 Unknown Tissue - Knee Gram Stain - Final 10/12/19 Unknown Tissue - Knee Wound Culture - Preliminary No growth-Final to follow 10/12/19 Unknown Tissue - Knee Anaerobic Culture - Preliminary No growth in 48 hours. Laboratory Results 10/14/19 05:20: WBC 4.0 L, RBC 2.88 L, Hgb 7.7 L, Hct 25.3 L, MCV 87.8, MCH 26.7 L, MCHC 30.4 L, RDW Std Deviation 50.4 H, RDW Coeff of Pat 15.7 H, Plt Count 117 L, MPV 9.4 10/14/19 09:20: Blood Type O POSITIVE, Antibody Screen NEGATIVE, Crossmatch See Detail Current Medications Acetaminophen (Tylenol) 1,000 mg PO Q8 [facility] Last Admin: 10/14/19 06:09 Dose: 1,000 mg Documented by: Cyclobenzaprine HCl (Flexeril) 10 mg PO QHS [facility] Last Admin: 10/13/19 20:50 Dose: 10 mg Documented by: Doxycycline Monohydrate (Doxycycline) 100 mg PO BID [facility] Last Admin: 10/14/19 11:34 Dose: 100 mg Documented by: Enteral Nutritional Formula (Ensure Surgery) 237 ml PO TIDCM [facility] Last Admin: 10/14/19 07:43 Dose: 237 ml Documented by: Famotidine (Pepcid) 20 mg PO DAILY [facility] Last Admin: 10/14/19 11:34 Dose: 20 mg Documented by: Ferrous Sulfate (Ferrous Sulfate) 325 mg PO 1200,1700 [facility] Folic Acid (Folic Acid) 1 mg PO DAILY@0800 [facility] Last Admin: 10/14/19 08:40 Dose: 1 mg Documented by: Hydrochlorothiazide (Hctz) 25 mg PO QODAY [facility] Last Admin: 10/13/19 09:57 Dose: 25 mg Documented by: Meloxicam (Mobic) 7.5 mg PO BID [facility] Ondansetron HCl (Zofran) 4 mg IV Q8H PRN PRN PRN Reason: NAUSEA Oxycodone HCl (Oxyir) 5 - 10 mg PO Q4H PRN PRN PRN Reason: Pain Score 4-10/10 Last Admin: 10/14/19 08:39 Dose: 5 mg Documented by: Promethazine HCl (Phenergan) 12.5 mg IM Q6H PRN PRN; Protocol PRN Reason: NAUSEA/VOMITING Rivaroxaban (Xarelto) 20 mg PO DAILY@1700 [facility] Last Admin: 10/13/19 18:06 Dose: 20 mg Documented by: Senna/Docusate Sodium (Senokot-S, Linda-Colace) 2 tablet PO BID [facility] Last Admin: 10/14/19 11:34 Dose: 2 tablet Documented by: Sertraline HCl (Zoloft) 50 mg PO QHS [facility] Last Admin: 10/13/19 20:48 Dose: 50 mg Documented by: Sodium Chloride () 10 - 40 ml IV UD PRN PRN Reason: SALINE FLUSH Last Admin: 10/13/19 20:32 Dose: 10 ml Documented by: Sotalol HCl (Betapace (G)) 40 mg PO BID [facility] Last Admin: 10/14/19 11:34 Dose: 40 mg Documented by: STROKE Vital Signs/Narrative: Vital Signs Temp Pulse Pulse Pulse Pulse Resp BP 10/14/19 12:04 99.2 F H 76 16 118/49 L 10/14/19 08:55 81 72 82 10/14/19 08:21 98.2 F 77 16 109/40 L BP BP BP Pulse Ox 10/14/19 12:04 100 10/14/19 08:55 133/48 H 127/59 H 97/47 L 10/14/19 08:21 100 Medical Necessity - Tobacco Use Smoking Status: Never smoker Tobacco Use: Non-smoker Assessment/Plan All Active Problems 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 Left total knee antibiotic spacer removal and left total knee revision - POD#2. Doing well. Pain controlled. Ambulating. 2. anemia - Hgb 7.7 today but Asymptomatic. 1 unit PRBC today. CBC in 1 weeks with PCP. Check orthos. if neg after 1 unit, ok to dc. Pt concerned with family hx of hemophilia and blood cancer, after pt to discuss further workup with PCP. 3. Thrombocytopenia - repeat cbc 1 week. 4. PAfib - xarelto, sotalol 5. HTN _ stable 6. Fibromyalgia, Depression - sertraline Continue for the opportunity to participate in the care of this patient. This patient was seen by Favian Fernandez PA-C under the supervision of Doctor Valentin. <Ely Valentin - Last Filed: 10/14/19 12:44> Vitals/I&O's: Vital Signs Temp Pulse Resp BP Pulse Ox 99 F 78 16 107/87 H 98 10/14/19 12:19 10/14/19 12:19 10/14/19 12:19 10/14/19 12:19 10/14/19 12:19 Oxygen Flow Rate (L/min) 1 Oxygen Delivery Method Room Air Weight: 95.4 kg Body Mass Index (BMI) 33.9 Orthostatic Vital Signs Start: 10/14/19 08:46 Freq: q24h Status: Active Protocol: Activity Type Activity Date Activity User E-Sign Co-Sign Detail Recorded Client Recorded Date Recorded By Document 10/14/19 08:55 SARAH [id number] 10/14/19 08:59 SARAH 10/14/19 08:55 Orthostatic Vitals Standing -Blood Pressure (90/60-120/80) 97/47 L -Extremity Use Right Arm -Pulse Rate (60-100) 82 Sitting -Blood Pressure (90/60-120/80) 127/59 H -Extremity Use Right Arm -Pulse Rate (60-100) 72 Lying -Blood Pressure (90/60-120/80) 133/48 H -Extremity Use Right Arm -Pulse Rate (60-100) 81 Intake and Output for Last 24 Hours 10/12/19 10/13/19 10/14/19 23:59 23:59 23:59 Intake Total 2349.58 / 2349.58 4959.17 / 5159.17 500 / 500 Output Total 120 / 260 1340 / 1390 60 / 60 Balance 2229.58 / 2089.58 3619.17 / 3769.17 440 / 440 Microbiology Past 72 Hours 10/12/19 Unknown Tissue - Knee Gram Stain - Final 10/12/19 Unknown Tissue - Knee Wound Culture - Preliminary No growth-Final to follow 10/12/19 Unknown Tissue - Knee Anaerobic Culture - Preliminary No growth in 48 hours. 10/12/19 Unknown Tissue - Knee Gram Stain - Final 10/12/19 Unknown Tissue - Knee Wound Culture - Preliminary No growth-Final to follow 10/12/19 Unknown Tissue - Knee Anaerobic Culture - Preliminary No growth in 48 hours. 10/12/19 Unknown Tissue - Knee Gram Stain - Final 10/12/19 Unknown Tissue - Knee Wound Culture - Preliminary No growth-Final to follow 10/12/19 Unknown Tissue - Knee Anaerobic Culture - Preliminary No growth in 48 hours. Laboratory Results 10/14/19 05:20: WBC 4.0 L, RBC 2.88 L, Hgb 7.7 L, Hct 25.3 L, MCV 87.8, MCH 26.7 L, MCHC 30.4 L, RDW Std Deviation 50.4 H, RDW Coeff of Pat 15.7 H, Plt Count 117 L, MPV 9.4 10/14/19 09:20: Blood Type O POSITIVE, Antibody Screen NEGATIVE, Crossmatch See Detail Current Medications Acetaminophen (Tylenol) 1,000 mg PO Q8 [facility] Last Admin: 10/14/19 06:09 Dose: 1,000 mg Documented by: Cyclobenzaprine HCl (Flexeril) 10 mg PO QHS [facility] Last Admin: 10/13/19 20:50 Dose: 10 mg Documented by: Doxycycline Monohydrate (Doxycycline) 100 mg PO BID [facility] Last Admin: 10/14/19 11:34 Dose: 100 mg Documented by: Enteral Nutritional Formula (Ensure Surgery) 237 ml PO TIDCM [facility] Last Admin: 10/14/19 07:43 Dose: 237 ml Documented by: Famotidine (Pepcid) 20 mg PO DAILY [facility] Last Admin: 10/14/19 11:34 Dose: 20 mg Documented by: Ferrous Sulfate (Ferrous Sulfate) 325 mg PO 1200,1700 [facility] Folic Acid (Folic Acid) 1 mg PO DAILY@0800 [facility] Last Admin: 10/14/19 08:40 Dose: 1 mg Documented by: Hydrochlorothiazide (Hctz) 25 mg PO QODAY [facility] Last Admin: 10/13/19 09:57 Dose: 25 mg Documented by: Meloxicam (Mobic) 7.5 mg PO BID [facility] Ondansetron HCl (Zofran) 4 mg IV Q8H PRN PRN PRN Reason: NAUSEA Oxycodone HCl (Oxyir) 5 - 10 mg PO Q4H PRN PRN PRN Reason: Pain Score 4-10/10 Last Admin: 10/14/19 08:39 Dose: 5 mg Documented by: Promethazine HCl (Phenergan) 12.5 mg IM Q6H PRN PRN; Protocol PRN Reason: NAUSEA/VOMITING Rivaroxaban (Xarelto) 20 mg PO DAILY@1700 [facility] Last Admin: 10/13/19 18:06 Dose: 20 mg Documented by: Senna/Docusate Sodium (Senokot-S, Linda-Colace) 2 tablet PO BID [facility] Last Admin: 10/14/19 11:34 Dose: 2 tablet Documented by: Sertraline HCl (Zoloft) 50 mg PO QHS [facility] Last Admin: 10/13/19 20:48 Dose: 50 mg Documented by: Sodium Chloride () 10 - 40 ml IV UD PRN PRN Reason: SALINE FLUSH Last Admin: 10/13/19 20:32 Dose: 10 ml Documented by: Sotalol HCl (Betapace (G)) 40 mg PO BID [facility] Last Admin: 10/14/19 11:34 Dose: 40 mg Documented by: STROKE Vital Signs/Narrative: Vital Signs Temp Pulse Pulse Pulse Pulse Resp BP 10/14/19 12:19 99 F 78 16 107/87 H 10/14/19 12:04 99.2 F H 76 16 118/49 L 10/14/19 08:55 81 72 82 BP BP BP Pulse Ox 10/14/19 12:19 98 10/14/19 12:04 100 10/14/19 08:55 133/48 H 127/59 H 97/47 L Assessment/Plan This patient was seen in conjunction with DAKOTA Hernandez. I have independently interviewed and examined the patient and reviewed pertinent historical, laboratory, and other data. Please refer to DAKOTA Hernandez note for his patient's presentation, findings, and recommendations. I have reviewed and his note and concur with his documentation Patient was seen and examined. She complains of fatigue. She denies any progressive shortness of breath. Hemovac drain was removed, drainage was reportedly going down. Noted her hemoglobin is dropped to 7.7 from 2.3. Hemoglobin was 12.0 in September. Physical Exam: Gen: Comfortable, pale, not jaundiced, well-hydrated CVS:HS I +II, regular, no murmurs RESP: Diminished at lung bases GI: BS present and normal, soft, nontender, no palpable organs EXT:No edema ASSESSMENT: 1. Acute blood loss anemia 2. Status post left total knee replacement, anti-biotic spacer removal and revision 3. Thrombocytopenia 4. Paroxysmal atrial fibrillation 5. Hypertension 6. Fibromyalgia 7. Depression Plan: Transfuse 1 unit of packed RBC Reevaluate with repeat orthostatic vitals Discharge if patient has negative orthostatic vitals and feels better and there has not been any acute events Code Visit Inpatient E&M: 58197 Subs Hosp L2
[2019-10-14] MEDS: Ferrous Sulfate 325 MG Tablet PO (13:14)
[2019-10-14] MEDS: Meloxicam 7.5 MG Tablet PO (13:14)
== END 2019-10-14 16:55 | disposition home or self-care (01) | DRG 467 ==
LOC: ACINP 10:11 → MS3 14:13
PROVIDERS: Admitting Provider Specialist; Family Provider Nurse Practitioner Family; PCP Nurse Practitioner Family; Referring Provider Specialist; Visit Provider Internal Medicine
PROC: 0SPD0EZ Removal of Articulating Spacer from Left Knee Joint, Open Approach (ICD-10-PCS; principal; 2019-10-12 11:50)
DX: Z47.33 Aftercare following explantation of knee joint prosthesis (principal); D62 Acute posthemorrhagic anemia; I48.0 Paroxysmal atrial fibrillation; M79.7 Fibromyalgia; F32.9 Major depressive disorder, single episode, unspecified; I10 Essential (primary) hypertension; Z79.01 Long term (current) use of anticoagulants; Z85.828 Personal history of other malignant neoplasm of skin
CPT/HCPCS: 36415; 73560; 80048; 82962; 85025; 85027; 86850; 86900; 86901; 86920; 86922; 87015; 87070; 87075; 87077; 87081; 87102; 87116; 87176; 87205; 87206; 93005; 97110; 97162; 97166; 97530; 97535; 99251; C1776; J7040; J7120; P9016; A4216; G0463; J2405

== ENCOUNTER 2019-12-05 16:00 | Outpatient (RCR) | payer MEDICARE, MEDICAID, SELFPAY ==
[2019-10-12 18:00] VITALS: BMI 33.9
--- NOTE | 2019-11-07 19:19 | HP.PTEVAL ---
Patient's Visit Information JOSAFAT CORDOBA is a 69 year old F referred to Physical Therapy by Antonio Clements MD with a diagnosis of PRESENCE OF LEFT ARTIFICIAL KNEE JOINT. Date of Evaluation: 11/07/19 Physical Therapist: Sachin Serrano, PT, Cert MDT, OCS - Visit Plan Frequency: 2x /Week Duration: 4 Weeks Plan: PT INTERVENTION FOCUS ON ROM/FLEXABLITY PROGRESS TO PRE'S ,NUSTEP BALANCE PROGRAM,ICE PACK - Subjective Findings: This 69 y/o female presents to physical therapy of left TKA. Patient presence of medical complication with intial TKR april 2018 ,found to have continue pain felt something wasnt right. Patient seen [facility] thus found to infection total knee, cement deteriated ,unstable and warm thus place spacer done DR Clements Jul 2019 . Patient had antiobotic spacer and IV antibiotics for 6weeks,Patient at home min WB with fww with knee brace . Thus ,undwerwent s/p TKA revision 10/12/19. Patient d/c to home with FWW and Home Health care for 2wks. Seen last week recommended PT. Patient has some pain . Denies parathesia/tingling . Patient lives in module home with 7 steps with rails. Patient has tub/shower set -up with seat. Patient surgery impairs ADLS,housework tasks and daily function. Patient surgery of TKA QOL and function. SOCIAL: . VOCATION: retired - Pain Left Pain Intensity (Out of 10): 1 Pain Intensity Range: 10 - Objective POSTURE:mild foward posture. GAIT: mild foward posture 2 point gait pattern mild algic gait. NEURO: denies parathesia/tingling,. EDEMA: joint line 46 cm2. BALANCE: fair+ with cane. STAIRS: one step at a time with rail/cane. MMT: quads/hams 4/5,hip flexion 4-/5,hip abd 4/5,ankle 4/5. AROM: 5-87 supine knee flexion - Goals Goal 1:: Independant with HEP Goal Time Frame: 4-6 Weeks Goal 2:: Patient ambulate with no device with improved quality gait pattern [facility]. Goal Time Frame: 4-6 Weeks Goal 3:: Improve dynamic balance to good Goal Time Frame: 4-6 Weeks Goal 4:: Patient to increase AROM knee flexion 0-100 degrees > to improve function. Goal Time Frame: 4-6 Weeks Goal 5:: Patient to improve LFES score by 5-10 points or > to improve QOL and function. Goal Time Frame: 4-6 Weeks - Rehabilitation Potential Physical Therapy Diagnosis: This patient had complication wth first TKR found to have infection thus underwent s/p revison left TKR with decrease ROM ,strength, gait ,balance thus benifit from skilled PTY Rehabilitation Potential: Good - Anticipated Interventions Patient/Client Instruction: Educate patient on: Condition, Plan of Care For the Purpose of:: To decrease pain, To increase ROM, To improve muscle performance and motor function, To improve ability to perform ADL's, To improve ability of physical actions for home/community/work/leisure, To improve gait and locomotor functions, To increase flexibility/ROM, To improve balance, To improve ability to perform tasks related to life management Therapeutic Exercise to Include: Strength training, Endurance training, Balance training, Flexibilty training, Gait and locomotor training, Active ROM Comment: PRE'S QUAD/HAMS For the Purpose of:: To decrease pain, To increase ROM, To improve ability to perform ADL's, To increase tolerance to activity/condition/position, To improve ability of physical actions for home/community/work/leisure, To improve health of tissue, To decrease soft tissue restriction, To increase flexibility/ROM, To improve balance, To improve ability to perform tasks related to life management Thank you for the opportunity to evaluate your patient. For Medicare and Medicare HMO plans, please review the plan of care and approve it. It will need to be FAXED BACK to us at [phone] for Medicare purposes. For Medicare only, by signing this I certify the plan of care. Please let me know if there are questions or concerns regarding this plan of care. Physician Signature: Date:
--- NOTE | 2020-02-22 09:31 | HP.PT.NRP ---
JOSAFAT CORDOBA was seen in my office for initial evaluation on 11/07/19. The following Plan of Care was established for this patient: Initial Frequency: 2x /Week Initial Duration: 4 Weeks Patient/Client Instruction: Educate patient on: Condition, Plan of Care For the Purpose of:: To decrease pain, To increase ROM, To improve muscle performance and motor function, To improve ability to perform ADL's, To improve ability of physical actions for home/community/work/leisure, To improve gait and locomotor functions, To increase flexibility/ROM, To improve balance, To improve ability to perform tasks related to life management Therapeutic Exercise to Include: Strength training, Endurance training, Balance training, Flexibilty training, Gait and locomotor training, Active ROM For the Purpose of:: To decrease pain, To increase ROM, To improve ability to perform ADL's, To increase tolerance to activity/condition/position, To improve ability of physical actions for home/community/work/leisure, To improve health of tissue, To decrease soft tissue restriction, To increase flexibility/ROM, To improve balance, To improve ability to perform tasks related to life management This patient was last seen in our office 12/05/19. Pertinent comments regarding their Physical therapy will appear below: Patient seen for PT for left TKR focusing on ,ROM,strengthening and gait thus is d/c doing well. At this point I will be discontinuing this patient from physical therapy. I would be happy to see this patient again in the future if found appropriate by the physician. Thank you! Sachin Serrano, PT, Cert MDT, OCS
== END 2019-12-05 19:00 | disposition home or self-care (01) ==
LOC: PT 16:00
PROVIDERS: Family Provider Nurse Practitioner Family; PCP Nurse Practitioner Family; Referring Provider Specialist; Visit Provider Specialist
DX: Z96.652 Presence of left artificial knee joint (principal)
CPT/HCPCS: 97110; 97162

== ENCOUNTER → 2022-05-21 | Outpatient (CLI) | payer MEDICARE, MEDICAID, SELFPAY ==
[2022-05-21 17:54] LABS: Absolute Lymphocyte Count 2.29 X10^3/uL (0.83-4.51); Absolute Neutrophil Count 3.4 X10^3/uL (2.0-7.7); Basophil# 0.04 X10^3/uL; Basophil% 0.6 % (0-1); Eosinophil# 0.08 X10^3/uL; Eosinophils% 1.3 % (0-5); Hemoglobin 12.1 g/dL (12.0-15.0); Lymphocyte # 2.29 X10^3/ul (0.83-4.51); Lymphocyte % 36.4 % (19-41); Mean Corpuscular Volume 93.5 fL (81-99); Mean Platelet Vol. 10.1 fl (6.2-12.0); Monocyte# 0.49 X10^3/uL; Monocyte% 7.8 % (0-10); NRBC Flagged by Analyzer 0 % (0-5); Neutrophil # 3.36 X10^3/uL (2.7-7.7); Neutrophil % 53.4 % (47-70); Platelet Count 251 K/mm3 (150-450); RBC Distribution Width SD 47.8 fl (35.1-43.9); Red Blood Count 4.17 M/mm3 (4.2-5.4); White Blood Count 6.3 K/mm3 (4.4-11.0)
[2022-05-21 18:09] LABS: ALB/GLOB Ratio 0.9 RATIO (0.9-2.4); AST(SGOT) 19 U/L (15-37); Alanine Aminotransfer ALT/SGPT 22 U/L (13-56); Albumin, Serum 3.6 g/dL (3.2-5.0); Alkaline Phosphatase 96 U/L (45-117); Anion Gap 7 (5-15); BUN 21 mg/dL (7-18); BUN/Creat Ratio 30.8 RATIO (10-20); Calcium,Total 9.3 mg/dL (8.5-10.1); Chloride 102 mmol/L (98-107); Cholesterol 159 mg/dL (200); Creatinine, Serum 0.68 mg/dL (0.55-1.02); EST Glomerular Filtration Rate 90 mL/min (>60); Est Glom Filt Rate - Afr Amer 109 mL/min (>60); Globulin 3.8 g/dL (2.2-4.2); Glucose 88 mg/dL (74-106); High Density Lipoprotein 39 mg/dL; Potassium 3.4 mmol/L (3.5-5.1); Protein, Total 7.4 g/dL (6.4-8.2); Sodium Level 138 mmol/L (136-145); Thyroid Stim Hormone (TSH) 1.92 uIU/mL (0.358-3.74); Triglycerides 274 mg/dL; Very Low Density Lipoprotein 55 mg/dL (5-40)
== END | disposition home or self-care (01) ==
LOC: MFPLAB 14:33
PROVIDERS: PCP Family Medicine; Referring Provider Family Medicine; Visit Provider Family Medicine
DX: I10 Essential (primary) hypertension (principal); E66.01 Morbid (severe) obesity due to excess calories; E78.2 Mixed hyperlipidemia
CPT/HCPCS: 36415; 80053; 80061; 83036; 84443; 85025

== ENCOUNTER → 2023-01-16 | Outpatient (CLI) | payer MEDICARE, MEDICAID, SELFPAY ==
--- NOTE | 2023-01-16 11:02 | ECHOCS_ITS ---
Reason For Study: ATRIAL FIB-FLUTTER Procedure This was a 2D Doppler, Color Flow transthoracic echocardiogram. The study was technically difficult. Exam performed in department. Left Ventricle Normal LV size. Left ventricular systolic function is normal. The estimated ejection fraction is 65 %. No regional wall motion abnormalities noted. Right Ventricle Normal RV size. Normal systolic function. Atria Normal left atrium. Normal right atrium. Mitral Valve Normal mitral valve. Tricuspid Valve Normal tricuspid valve. Aortic Valve Normal aortic valve. Trisinus/trileaflet aortic valve. Pulmonic Valve Normal pulmonic valve. Great Vessels Normal aortic root. The pulmonary artery is normal size. Normal inferior vena cava. Pericardium/Pleural No pericardial effusion. Medication 22 gauge I.V. with prn adaptor inserted into left arm. Diluted definity 3ml given slow IV push to enhance endocardial definition. MMode/2D Measurements & Calculations LVIDd: 5.0 cm IVSd: 1.0 cm Ao root diam: 2.8 cm LVIDs: 3.2 cm LVPWd: 0.87 cm RVDd: 3.3 cm FS: 35.7 % LAV(MOD-bp): 34.7 ml LVAd ap4: 32.2 cm2 SV(MOD-sp4): 70.9 ml LAV(MOD-bp) Indexed: 16.1 ml/m2 LVLd ap4: 7.7 cm LAV(MOD-sp2): 31.7 ml EDV(MOD-sp4): 110.6 ml LAV(MOD-sp4): 37.0 ml EDV(sp4-el): 114.9 ml LVAs ap4: 16.9 cm2 LVLs ap4: 6.0 cm ESV(MOD-sp4): 39.7 ml ESV(sp4-el): 40.8 ml EF(MOD-sp4): 64.1 % EF(sp4-el): 64.5 % SV(sp4-el): 74.1 ml LA A4 area: 16.0 cm2 LA dimension(2D): 4.0 cm RA A4 area: 12.5 cm2 Time Measurements MV dec time: 0.34 sec Doppler Measurements & Calculations MV E max norberto: 71.9 cm/sec Lat Peak E' Norberto: 9.2 cm/sec Med Peak E' Norberto: 9.2 cm/sec MV A max norberto: 100.2 cm/sec E/E' lat: 7.8 E/E' med: 7.8 MV E/A: 0.72 Ao V2 max: 154.5 cm/sec LV V1 max: 117.4 cm/sec PA V2 max: 118.8 cm/sec Ao max P.6 mmHg LV V1 max P.5 mmHg ECHO/Echo Complete W/ Contrast Interpretation Summary Normal LV size. Left ventricular systolic function is normal. The estimated ejection fraction is 65 %. Structurally normal valves. Contrast injection was performed. Ordering Physician: Suresh Kelly Referring Physician: MISAEL SETH Performed By: Ayah Freeman RDCS
== END | disposition home or self-care (01) ==
LOC: CVS 11:01
PROVIDERS: PCP Family Medicine; Visit Provider Internal Medicine Cardiovascular Disease
DX: I44.0 Atrioventricular block, first degree (principal); I48.0 Paroxysmal atrial fibrillation; I10 Essential (primary) hypertension
CPT/HCPCS: 93225; 93226; 93306; Q9957; A4216; C8929

== ENCOUNTER → 2023-06-29 | Outpatient (CLI) | payer MEDICARE, MEDICAID, SELFPAY ==
[2023-06-29 18:27] LABS: Microalbumin,Random Urine 8.2 mg/L (NO RANGE EST.)
[2023-06-29 18:37] LABS: AST(SGOT) 16 U/L (15-37); Alanine Aminotransfer ALT/SGPT 20 U/L (13-56); Albumin, Serum 3.8 g/dL (3.2-5.0); Alkaline Phosphatase 112 U/L (45-117); Anion Gap 6 (5-15); BUN 26 mg/dL (7-18); BUN/Creat Ratio 32.8 RATIO (10-20); Calcium,Total 9.5 mg/dL (8.5-10.1); Chloride 106 mmol/L (98-107); Cholesterol 176 mg/dL (200); Creatinine, Serum 0.79 mg/dL (0.55-1.02); EST Glomerular Filtration Rate 76 mL/min (>60); Est Glom Filt Rate - Afr Amer 92 mL/min (>60); Glucose 88 mg/dL (74-106); High Density Lipoprotein 49 mg/dL; Potassium 4.3 mmol/L (3.5-5.1); Protein, Total 7.8 g/dL (6.4-8.2); Sodium Level 142 mmol/L (136-145); Triglycerides 203 mg/dL; Very Low Density Lipoprotein 41 mg/dL (5-40)
[2023-06-29 18:56] LABS: Hemoglobin A1c 5.8 % (3.8-5.6)
== END | disposition home or self-care (01) ==
PROVIDERS: PCP Family Medicine; Referring Provider Family Medicine; Visit Provider Family Medicine
DX: I10 Essential (primary) hypertension (principal); R73.01 Impaired fasting glucose; E87.6 Hypokalemia
CPT/HCPCS: 36415; 80053; 80061; 82043; 83036

== ENCOUNTER 2023-07-15 13:08 | Observation (INO) | payer MEDICARE, MEDICAID, SELFPAY ==
[2023-06-22 13:16] LABS: Absolute Lymphocyte Count 1.92 X10^3/uL (0.83-4.51); Absolute Neutrophil Count 2.4 X10^3/uL (2.0-7.7); Basophil# 0.03 X10^3/uL; Basophil% 0.6 % (0-1); Eosinophil# 0.12 X10^3/uL; Eosinophils% 2.5 % (0-5); Hematocrit 40.5 % (37-47); Hemoglobin 12.8 g/dL (12.0-15.0); Lymphocyte # 1.92 X10^3/ul (0.83-4.51); Mean Corp Hgb Conc 31.6 g/dL (32-36); Mean Corpuscular Hgb 29.5 pg (27.0-32.0); Mean Corpuscular Volume 93.3 fL (81-99); Mean Platelet Vol. 9.1 fl (6.2-12.0); Monocyte# 0.31 X10^3/uL; Monocyte% 6.5 % (0-10); NRBC Flagged by Analyzer 0 % (0-5); Platelet Count 198 K/mm3 (150-450); RBC Distribution Width CV 13.2 % (11.6-14.6); RBC Distribution Width SD 45.2 fl (35.1-43.9); Red Blood Count 4.34 M/mm3 (4.2-5.4); White Blood Count 4.8 K/mm3 (4.4-11.0)
[2023-06-22 14:14] LABS: Albumin, Serum 3.6 g/dL (3.2-5.0); Anion Gap 9 (5-15); BUN 21 mg/dL (7-18); BUN/Creat Ratio 25.7 RATIO (10-20); Calcium,Total 9.5 mg/dL (8.5-10.1); Chloride 100 mmol/L (98-107); Creatinine, Serum 0.82 mg/dL (0.55-1.02); EST Glomerular Filtration Rate 73 mL/min (>60); Est Glom Filt Rate - Afr Amer 88 mL/min (>60); Glucose 169 mg/dL (74-106); Potassium 2.9 mmol/L (3.5-5.1); Sodium Level 137 mmol/L (136-145)
[2023-06-24 13:55] LABS: Magnesium 1.9 mg/dL (1.6-2.6)
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
[2023-07-15] VITALS (15 sets, daily range): BP systolic 101–168; BP diastolic 51–80; PULSE 56–79; RESP 14–18; TEMP 36.1–36.8; O2SAT 95–100; BMI 81.1; BMI 36.8
--- NOTE | 2023-07-15 | HIP_PTH ---
PATIENT: JOSAFAT CORDOBA LOC: MS3 U#:[id number] AGE/SX: 72/F ROOM: [facility] RE07/15/[address]: Dr. Antonio Clements MD : 1950 BED: 1 DIS: 07/16/2023 SPEC #: [id number] RECD: 07/15/23 11:42 STATUS: NIXON PACK #: [id number] CARLOS ENRIQUE: 07/15/23 00:[address]: Antonio Clements DEPT: SURGICAL PATHOLOGY RECD BY: Betty Mg ENTERED: 07/15/23 13:24 SP TYPE: TOTAL HIP OTHR DR: Hillary Rodriguez DO Tissues: Hip, NOS Procedures: Decalcification bone/plaque Surgery Specimen Level IV HEADER OPERATION: ERAS, total hip direct anterior approach PRE-OP DIAGNOSIS: Grade IV osteoarthritis left hip TISSUE SUBMITTED: Bone and soft tissue of left hip MICROSCOPIC DIAGNOSIS Left hip bone and soft tissue, total hip replacement/resection: Femoral head with degenerative osteoarthritic changes. Fragments of dense fibroconnective tissue and fibrocartilaginous tissue. JOSE:fausto 07/20/2023 MICROSCOPIC DESCRIPTION Slides are reviewed. GROSS DESCRIPTION Received is one container labeled with the patient's name and designated bone and soft tissue left hip. The specimen consists of a lin femoral head measuring 4.5 x 5.0 x 4.5 cm. Also present in the container is a detached piece of bone consistent with portion of femoral neck measuring 4.0 x 3.5 x 1.2 cm. The articular surface displays prominent osteophyte formation and bone erosion. Also present in the specimen container are multiple irregular fragments of predominantly bone reamings measuring in aggregate 6.5 x 6.0 x 1.0 cm. Professor Of Communication And Writing sections are submitted in two cassettes as follows: 1 - soft tissue, 2 - bone after decalcification. / JOSE:fausto 07/15/2023 TC:5 CPT: 57081, 99617
--- NOTE | 2023-07-15 07:12 | OP.PCM_ITS ---
Report of Operation Date of Procedure: 07/15/23 Pre-Operative Diagnosis: Left hip primary osteoarthritis Post-Operative Diagnosis: Left hip primary osteoarthritis Surgery/Procedure Performed:: Left minimally invasive direct anterior hip replacement Description of Surgical Findings:: Stable hip with equal leg lengths Surgeon: Antonio Clements certified hyperbaric technologist: Marc Marie Type of Anesthesia: General Anesthesiologist: Stephen Kevin Special Medications: 2 g Ancef, 1 g TXA at incision, 1 g TXA closure, 10 mg Deca dron, joint cocktail (5 mg Duramorph, 30 mL of 0.5% Ropivicaine, 1000 units of epinephrine, 30 mg of Toradol) Specimen's removed: Bony cuts Estimated Blood Loss (mL): 250 Fluids Replaced: 1200 ml Description of Procedure: Components used: 1. Insignia An femoral stem size 4 HO 2. [place] trident 2 acetabular shell size 52 mm 3. [place] X3 polyethylene 52 4. An Biolox delta 36mm, -2.5mm femoral head Brief history operative indications: 72 yo F who failed conservative measures for their hip osteoarthritis. X-rays were consistent with osteoarthritis including joint space narrowing, osteophyte formation and subchondral cysts. Total hip replacement was discussed with the patient with risks and benefits including but not limited to blood loss, DVTs, PEs, neurovascular damage, dislocation, general risks of anesthesia including loss of life. Patient demonstrated an understanding medical clearance is obtained the patient was consented for surgery. Procedure: On the date of procedure the patient's L hip was marked in the preoperative area. Patient was then taken back to the operating room where anesthesia assumed control of the C-spine and airway and administered anesthetic. Patient was transferred to the operating table and placed in the supine position. The hips were placed at the break of the bed and a sacral bump was placed. L The lower extremity was then prepped out in a sterile fashion using chlorhexidine while the surgeon scrubbed. The PA was vital in the positioning of the patient. Upon reentering the room the left lower extremity was draped in the standard orthopedic fashion and the incision was marked. A timeout was called and everyone agreed upon the side, the site, the procedure be performed, antibody given, and patient's identity. At this time incision was made through skin, subcutaneous tissue, and fat down to fascia. The fascia was then incised and the TFL was retracted laterally. A retractor was placed on the lateral border of the femoral neck. Attention was directed to the inferior portion of the approach and all crossing vessels were identified and appropriately coagulated. A retractor was then placed on the medial portion of the femoral neck. The anterior capsule was then cleared of all soft tissue and then H shaped capsulotomy was made. The retractors were then placed inside the capsule. The femoral neck was identified and a cleanup cut was made. At this time a power corkscrew was used to remove the femoral head. Attention was then turned toward the acetabulum where the soft tissues were appropriately retracted and the acetabulum was sequentially reamed to 52 mm. A 52 mm cup was then selected and impacted into place. Acetabular liner was impacted into place and locking mechanism was verified. The position of the acetabular cup was then verified under live fluoroscopy. Attention was then turned to the femur. Soft tissue releases on the medial and lateral femoral neck were appropriately done, the leg was externally rotated and lateralized. A [place] retractor was placed medially and proximally to the greater trochanter this allowed appropriate visualization and exposure of the femoral canal. Rongeour was then used to remove excess lateral bone. A canal finder and entry broach were used to open the proximal canal. Once we verified we were down the femoral canal we subsequently broached up to a size 4 femur. The appropriate neck was placed in the previously selected head was trialed with a -2.5 mm neck. Traction was pulled and the hip was reduced with internal rotation. Once it was appropriately reduced and stability was checked. There was minimal shuck, equal leg lengths and appropriate stability with hyperextension and external rotation as well as with 90? flexion and internal rotation. Fluoroscopy was then also used to verify the position of the components and leg lengths using the contralateral side for comparison. The trial components were then dislocated the proximal femur was again exposed and the components were removed from the wound. The final components were verified and opened. The wound was copiously irrigated out with normal saline. The acetabulum was checked for any residual debris. The final components were placed and impacted. Traction and internal rotation were again used to reduce the hip. After adequate reduction the hip remained stable with appropriate leg lengths. The final components were once again checked with live fluoroscopy and were found to be satisfactory. The wound was then copiously irrigated with normal saline once more, and hemostasis was obtained. Closure was then done using #1 Vicryl runner to close the fascia. A 2-0 vicryl interuppted sutures were used to close the subcutaneous skin. A 3-0 Monocryl and Steri-Strips were used for final skin closure. A Silverlon dressing was placed. Patient was awakened by anesthesia and transferred to the [facility]. Patient was then transferred to the PACU for recovery. During the course of the procedure the physician cash posting clerk (PE) played a vital role. Their intimate knowledge of my steps in the procedure aided in safe and expedient completion of the procedure. The PE played a vital rolls in positioning particularly in obtaining the appropriate positioning of the sacral bump. The PE was also vital in the retraction of soft tissues during the exposure and especially the femoral work as this is a vital part of the procedure to prevent complications and fractures. The PE was also vital and protecting soft tissues during times of bony cuts and reaming. He also played a vital role in closure with my direct supervision. The PE was also important du ring reduction and dislocation of the joint and trials intraoperatively. Postoperative plan: Patient will get 24 hours postop antibiotics. Patient will get in-house physical therapy and will be weight-bear as tolerated. Patient will follow up in office in 2 weeks for a wound check and x-rays. Aspirin 81 mg twice daily. Complications No intraoperative complications Admit VTE Documentation VTE Present on Admission: No VTE Mechan Device Prophylaxis: SCD's and Thigh High YOLANDA Hose VTE Pharm Prophylaxis ordered?: Yes
[2023-07-15] MEDS: Lactated Ringers 1,000 ML 999 ML IV ×2 (07:34→11:15)
[2023-07-15] MEDS: Celecoxib 200 MG Capsule 400 MG PO (07:35)
[2023-07-15] MEDS: Acetaminophen 500 MG Tablet 1000 MG PO ×3 (07:35→22:12)
[2023-07-15] MEDS: Magnesium 2 GM for ERAS IV (07:35)
[2023-07-15] MEDS: Gabapentin 600 MG Tablet PO (07:35)
[2023-07-15 08:02] LABS: Bedside Glucose 104 mg/dL (74-106)
[2023-07-15] MEDS: Vancomycin HCl 1,500 MG in 0.9% Normal Saline (500mL Bag) 500 ML 250 MG IV (08:08)
--- NOTE | 2023-07-15 08:15 | RAD_ITS ---
STUDY: X-RAY - PELVIS AND LEFT HIP REASON FOR EXAM: Female, 72 years old. PAIN TECHNIQUE: 4 fluoroscopic guided views of the pelvis and hip. Radiation exposure 1.76mgy COMPARISON: July 15, 2023 FINDINGS: Bilateral hip prostheses are noted in anatomic alignment and position.. RAD/Hip 1 view with Pelvis IMPRESSION: Stable appearance to bilateral hip prostheses Electronically Signed: Dick Mallory MD at 16:56 EDT ,
[2023-07-15] MEDS: Cefazolin 2 GM in 0.9% Normal Saline (100mL Bag) 100 ML IV (09:30)
[2023-07-15] MEDS: TXA 1000mg in NS100 100ml (IVPB at Incision) 660 MG IV (09:40)
[2023-07-15] MEDS: TXA 1000mg in NS100 100ml (IVPB at Closure) 660 MG IV (10:29)
[2023-07-15] MEDS: JPS (Morphine 10mg/ml) OPERA.SITE (10:34)
[2023-07-15] MEDS: Lactated Ringers 1,000 ML 125 ML IV (12:20)
--- NOTE | 2023-07-15 12:25 | RAD_ITS ---
STUDY: X-RAY - PELVIS AND LEFT HIP REASON FOR EXAM: Female, 72 years old. Post Op -- AP both hips on single linnea/lateral of op hip PACU TECHNIQUE: 2 views of the pelvis and hip. COMPARISON: None. FINDINGS: The patient status post left total hip replacement. There is good alignment. Postoperative soft tissue changes. RAD/Hip Min 2 Views (Portable) IMPRESSION: Status post left total hip replacement. There is good alignment. Postoperative soft tissue changes. Electronically Signed: Lul Pabon MD at 13:01 EDT ,
[2023-07-15] MEDS: Ensure Surgery 237 ML LIQUID PO (17:31)
[2023-07-15] MEDS: Cefazolin 1 GM/50 ML BAG IV (17:31)
--- NOTE | 2023-07-15 19:15 | PCM.PN.HOSP ---
Reason for Visit Reason for Visit: Diagnoses Encounter for other preprocedural examination (07/15/23) Subjective Subjective 72-year-old female history of hypertension and paroxysmal atrial fibrillation presented 07/15/2023 for left hip replacement due to his left hip osteoarthritis. Hospitalist consulted for medical management. Patient seen at bedside, has some pain but overall feeling well with no acute complaints Objective Data Objective Data Vital Signs: Vital Signs Temp Pulse Resp BP Pulse Ox O2 Del Method O2 Flow Rate 98.0 F 68 18 120/58 L 97 Nasal Cannula 4 07/15/23 17:55 07/15/23 17:55 07/15/23 17:55 07/15/23 17:55 07/15/23 17:55 07/15/23 17:55 07/15/23 17:55 Oxygen Flow Rate (L/min) 4 Oxygen Delivery Method Nasal Cannula Weight: 103.716 kg Body Mass Index (BMI) 36.8 Intake & Output: Intake and Output for Last 24 Hours 07/13/23 07/14/23 07/15/23 23:59 23:59 23:59 Intake Total 3264 / 3264 Output Total 200 / 200 Balance 3064 / 3064 Lab / Micro Data 06/22/23 12:59 06/22/23 12:59 Labs: Laboratory Results - last 24 hr 07/15/23 07:08: POC Glucose 104 Micro: Microbiology 06/22/23 12:59 Swab (Method) Nasal Screen MRSA/MSSA - Final Radiography Diagnostic Testing: Radiology Impression Hip/Pelvis X-Ray 07/15/23 08:15 IMPRESSION: Stable appearance to bilateral hip prostheses Electronically Signed: Dick Mallory MD at 16:56 EDT , Hip X-Ray 07/15/23 12:25 IMPRESSION: Status post left total hip replacement. There is good alignment. Postoperative soft tissue changes. Electronically Signed: Lul Pabon MD at 13:01 EDT , Physical Exam Narrative General: Alert, oriented, no apparent distress HEENT: Atraumatic, normocephalic Eyes: Anicteric, normal conjunctiva, extraocular movements grossly intact Neck: Supple Respiratory: Clear to auscultation bilaterally, normal respiratory effort Cardiovascular: Regular rate GI: Soft, nontender, nondistended Extremities: No edema Musculoskeletal: Moving all extremities in bed Neuro: No overt focal neurological deficits Skin: No rashes appreciated Psych: Cooperative Assessment & Plan Assessment/Plan (1) Osteoarthritis: (2) Paroxysmal atrial fibrillation: PLAN: Plan #Left hip osteoarthritis -Status post left minimally invasive direct anterior hip replacement 07/15/[address] Clements -Postop antibiotics per primary -PT, weightbearing as tolerated -Is on Xarelto chronically and this has been resumed #Atrial fibrillation -Continue sotalol, Xarelto resumed #Hypertension -Continue losartan, hydrochlorothiazide, sotalol #DVT ppx: On Xarelto Liudmila Rosa MD Time spent in the patient's overall evaluation,decision-making process, review of diagnostic data, adjustment of management, discussion with other providers, nursing nursing and ancillary staff involved in patient's care documentation, 25 minutes Charges/Coding Visit Charges Office Visits / Consults: 92414 OP Consult L2
[2023-07-15] MEDS: Senna/Docusate Sodium 1 Tablet 2 TABLET PO (22:13)
[2023-07-15] MEDS: Atorvastatin Calcium 20 MG Tablet PO (22:13)
[2023-07-15] MEDS: Sotalol Hydrochloride 80 MG Tablet 40 MG PO (22:14)
[2023-07-15] MEDS: Sertraline 100 MG Tablet PO (22:14)
[2023-07-16] MEDS: Cefazolin 1 GM/50 ML BAG IV (00:44)
[2023-07-16] MEDS: 0.9% Normal Saline (250mL Bag) 250 ML 15 ML IV (00:44)
[2023-07-16 01:40] VITALS: BP 117/53; PULSE 68; RESP 18; TEMP 36.9; O2SAT 98
[2023-07-16] MEDS: traMADol 50 MG Tablet PO ×2 (01:46→08:46)
[2023-07-16] MEDS: Acetaminophen 500 MG Tablet 1000 MG PO ×2 (04:50→13:55)
[2023-07-16 06:04] VITALS: BP 109/58; PULSE 73; RESP 16; TEMP 37.2; O2SAT 96
--- NOTE | 2023-07-16 07:45 | PCM.PN.HOSP ---
Reason for Visit Reason for Visit: Left hip osteoarthritis Subjective Subjective Patient states she is feeling pretty well and anxious to go home if possible. Currently working with physical and Occupational Therapy and has no complaints. Objective Data Objective Data Vital Signs: Vital Signs Temp Pulse Resp BP Pulse Ox O2 Del Method O2 Flow Rate 99 F 73 16 109/58 L 96 Room Air 2 07/16/23 06:04 07/16/23 06:04 07/16/23 06:04 07/16/23 06:04 07/16/23 06:04 07/16/23 06:04 07/15/23 22:08 Oxygen Flow Rate (L/min) 2 Oxygen Delivery Method Room Air Weight: 103.716 kg Body Mass Index (BMI) 36.8 Intake & Output: Intake and Output for Last 24 Hours 07/14/23 07/15/23 07/16/23 23:59 23:59 23:59 Intake Total 4264.00 / 4464.00 450 / 450 Output Total 200 / 350 150 / 150 Balance 4064.00 / 4114.00 300 / 300 Lab / Micro Data 07/16/23 07:25 07/16/23 07:25 Labs: Laboratory Results - last 24 hr 07/15/23 07:08: POC Glucose 104 Micro: Microbiology 06/22/23 12:59 Swab (Method) Nasal Screen MRSA/MSSA - Final Radiography Diagnostic Testing: Radiology Impression Hip/Pelvis X-Ray 07/15/23 08:15 IMPRESSION: Stable appearance to bilateral hip prostheses Electronically Signed: Dick Mallory MD at 16:56 EDT , Hip X-Ray 07/15/23 12:25 IMPRESSION: Status post left total hip replacement. There is good alignment. Postoperative soft tissue changes. Electronically Signed: Lul Pabon MD at 13:01 EDT , Physical Exam Const alert, oriented x3, no apparent distress, healthy appearing and well nourished; Negative for average body habitus Constitutional Narrative: Obese, older, white female, sitting up in a chair in the physical therapy room working with therapy, appears comfortable and nontoxic HEENT head/scalp atraumatic and moist oral mucous membranes Head and Scalp: normocephalic Resp normal respiratory effort, no retractions, no use of accessory muscles and clear to auscultation bilaterally Cardio regular rate, regular rhythm, S1 normal heart sound, S2 normal heart sound, no murmurs, no rub, no gallops and no clicks Neuro oriented x3, moves all extremities and no focal motor deficits Speech: speech normal Psych affect normal Psych Narrative: Very pleasant Assessment & Plan Assessment/Plan (1) Status post total hip replacement, left: (2) Osteoarthritis: PLAN: Plan Left hip osteoarthritis -Postop day 1 total left hip arthroplasty -Management per primary service -PT/OT consultation -Patient is chronically on Xarelto and this has been resumed and will satisfy for DVT prophylaxis -Weightbearing as tolerated -Follow-up in office in 2 weeks for wound check and imaging -Possible discharge later today if patient remains clinically stable and does well with therapy Atrial fibrillation -Continue home sotalol -Xarelto has been resumed Hypertension -Continue home losartan -Continue home hydrochlorothiazide Hyperlipidemia -Continue home statin Vitamin D deficiency -Continue home vitamin D supplementation at discharge Depression -Continue home Zoloft DVT prophylaxis -Continue home Xarelto Disposition: -Okay for discharge from medical standpoint Charges/Coding Visit Charges Inpatient E&M: 12271 Subs Hosp L1
[2023-07-16 07:49] LABS: Hematocrit 33.3 % (37-47); Hemoglobin 10.1 g/dL (12.0-15.0); Mean Corp Hgb Conc 30.3 g/dL (32-36); Mean Corpuscular Hgb 29.4 pg (27.0-32.0); Mean Corpuscular Volume 97.1 fL (81-99); Mean Platelet Vol. 9.4 fl (6.2-12.0); Platelet Count 131 K/mm3 (150-450); RBC Distribution Width CV 13.9 % (11.6-14.6); RBC Distribution Width SD 49.2 fl (35.1-43.9); Red Blood Count 3.43 M/mm3 (4.2-5.4); White Blood Count 6.1 K/mm3 (4.4-11.0)
[2023-07-16 08:12] LABS: Anion Gap 3 (5-15); BUN 19 mg/dL (7-18); BUN/Creat Ratio 23.3 RATIO (10-20); Calcium,Total 8.4 mg/dL (8.5-10.1); Chloride 107 mmol/L (98-107); Creatinine, Serum 0.82 mg/dL (0.55-1.02); EST Glomerular Filtration Rate 73 mL/min (>60); Est Glom Filt Rate - Afr Amer 88 mL/min (>60); Estimated Creatinine Clearance 58.05 ml/min; Glucose 154 mg/dL (74-106); Potassium 4.1 mmol/L (3.5-5.1); Sodium Level 141 mmol/L (136-145)
[2023-07-16 10:00] VITALS: RESP 18
[2023-07-16 10:09] VITALS: BP 140/70; PULSE 70; RESP 18; TEMP 36.3; O2SAT 98
--- NOTE | 2023-07-16 10:52 | PN.ORTHO_ITS ---
Subjective Subjective The patient was sitting in bed upon examination. Patient denies any chest pain, shortness of breath, dizziness, lightheadedness, nausea or vomiting, or calf pain. Pain is controlled on medications. No adverse overnight events. Patient overall is doing well this morning. Patient's pain has been controlled on Ty lenol and tramadol. She is on Xarelto chronically for the atrial fibrillation. She also reports that she is in pain management with Dr. Darryl Ferrari. She is on chronic tramadol. She states she has this medication at home. Objective Data Objective Data Vital Signs: Vital Signs Temp Pulse Resp BP Pulse Ox O2 Del Method O2 Flow Rate 97.3 F L 70 18 140/70 H 98 Room Air 2 07/16/23 10:07/16/23 10:07/16/23 10:07/16/23 10:07/16/23 10:07/16/23 10:07/15/23 22:08 Oxygen Flow Rate (L/min) 2 Oxygen Delivery Method Room Air Weight: 103.716 kg Body Mass Index (BMI) 36.8 Intake & Output: Intake and Output for Last 24 Hours 07/14/23 07/15/23 07/16/23 23:59 23:59 23:59 Intake Total 4264.00 / 4464.00 450 / 450 Output Total 200 / 350 150 / 150 Balance 4064.00 / 4114.00 300 / 300 Lab / Micro Data 07/16/23 07:25 07/16/23 07:25 Labs: Laboratory Results - last 24 hr 07/16/23 07:25: WBC 6.1, RBC 3.43 L, Hgb 10.1 L, Hct 33.3 L, MCV 97.1, MCH 29.4, MCHC 30.3 L, RDW Std Deviation 49.2 H, RDW Coeff of Pat 13.9, Plt Count 131 L, MPV 9.4, Sodium 141, Potassium 4.1, Chloride 107, Carbon Dioxide 31.0, Anion Gap 3 L, BUN 19 H, Creatinine 0.82, Estim Creat Clear Calc 58.05, Est GFR (MDRD) Af Amer 88, Est GFR (MDRD) Non-Af 73, BUN/Creatinine Ratio 23.3 H, Glucose 154 H, Calcium 8.4 L Micro: Microbiology 06/22/23 12:59 Swab (Method) Nasal Screen MRSA/MSSA - Final Radiography Diagnostic Testing: Radiology Impression Hip/Pelvis X-Ray 07/15/23 08:15 IMPRESSION: Stable appearance to bilateral hip prostheses Electronically Signed: Dick Mallory MD at 16:56 EDT , Hip X-Ray 07/15/23 12:25 IMPRESSION: Status post left total hip replacement. There is good alignment. Postoperative soft tissue changes. Electronically Signed: Lul Pabon MD at 13:01 EDT , Physical Exam Narrative Vital signs stable and afebrile. Left hip is soft and supple SCDs and YOLANDA hose are in place bilaterally Patient is able to plantarflex and dorsiflex actively. Sensation is intact to light touch to saphenous, sural, superficial and deep peroneal, and tibial distribution. Dressing is clean dry and intact. Negative Homans bilaterally, negative signs and symptoms of DVT. Const alert, oriented x3 and no apparent distress Assessment & Plan Assessment/Plan (1) Status post total hip replacement, left: PLAN: 1. S/P left direct anterior total hip arthroplasty POD #1 2. Continue Pain Medications: Tylenol and tramadol. Patient states she has tramadol prescription at home. She is seen by pain management Dr. Darrly Ferrari. We have reached out to the pain management physician to see who will manage pain medication postoperatively. We are waiting to hear back. Patient states her pain is no worse than it was preoperatively. Pain is well controlled so far. 3. DVT Prophylaxis: Patient will resume her Xarelto 20 mg today as she takes this for atrial fibrillation. This will cover her for DVT prophylaxis postoperatively. 4. PT/OT: Weightbearing as tolerated with walker. Patient did well with physical therapy today in the hospital. Manage steps well. 5. Lab work has been reviewed and currently stable. 6. Continue postoperative medical management per medicine 7. Encouraged Incentive Spirometry 8. Disposition: Plan will be for probable discharge home this afternoon as long as patient's pain is well controlled, tolerates therapy, and medically stable. Patient would like the one medication E scribed to [facility] pharmacy. She has Tylenol and the tramadol at home. She will follow-up per postop instructions. Again we are reaching out to the pain management physician to see who will manage her chronic tramadol postoperatively. Patient reports that she has medication at home. Upon discharge she will contact her office with any concerns or questions. I have reviewed the [place] Automated Rx Reporting System (OARRS) report for this patient for refill pattern and other prescriber involvement as part of the appropriate surveillance for the provision of acute and chronic controlled medications. The report was requested and reviewed on the date of this entry and was considered in the prescribing process. This dictation was created using voice recognition software. Phonetic and/or grammatical errors may exist.
--- NOTE | 2023-07-16 10:56 | DCINST_ITS ---
Discharge Instructions Diet Discharge Diet: No restrictions Activity Discharge Activity: May Not Drive (Must be able to walk 100 feet with cane) May shower in (days): 1 (only if incision is dry and without drainage. Do NOT soak/submerge in tub/pool/cifuentes/stream/hot tub.)) Ice area for (Minutes): 20 (Every 1-2 hours while awake[address] place barrier between ice and skin.) Weight Bearing Status: Weight bearing as tolerated Keep extremity elevated above heart level: Operative Extremity Additional Activity Instructions:: Follow [facility] Post-op Instructions. Once postoperative dressing has been removed only use gentle soap and water over the incision. Do not use any ointments, Neosporin, salves, alcohol pads over the incision for 6 weeks postoperatively. Do not submerge underwater for 6 weeks postoperatively. Wear elastic stockings for 2 weeks. Do NOT use alcohol with narcotic pain medication. Do NOT make important decisions while taking narcotic medication. If you have problems with taking your medication (rash, itching, nausea, etc.) call the office at once. Dressing / Incision Call your doctor if your incision/area has: Continuous Slow Oozing, Sudden Increased Bleeding, Increased Pain/ Swelling, Increased Redness and Foul Smelling Discharge Call your doctor if you observe: Fever of 101 or Higher, Shortness of breath, Chest pain, Calf discomfort and Uncontrolled pain Remove Dressing in: 4 days (Okay to remove dressing on July 20, 2023. Once dressing is removed must place 4 x 4 dressing in the skin fold to protect the proximal incision for 6 weeks postoperatively) Additional Dressing/Incision Instructions:: Follow [facility] Post-op Instructions. Once postoperative dressing has been removed, only use gentle soap and water over the incision. Do not use any ointments, Neosporin, salves, alcohol pads over the incision for 6 weeks postoperatively. Do not submerge underwater for 6 weeks postoperatively. Continue with YOLANDA hose/elastic stockings for 2 weeks postoperatively. May remove at nighttime but needs to be placed back on the leg during the day. Do NOT use alcohol with narcotic pain medication. Do NOT make important decisions while taking narcotic medication. If you have problems with taking your medication (rash, itching, nausea, etc.) call the office at once. Follow Up Care Test Results: Test results from this visit will be discussed in further detail at your follow- up appointment, if applicable. Discharge Plan Admission Admit Date/Time: 07/15/23 13:08 Attending Provider: Antonio Clements Primary Care Provider: Hillary Rodriguez Consulting Providers: Liudmila Rosa; Laisha Christiansen Discharge Orders/Prescriptions Prescriptions: New doxycycline monohydrate 100 mg Capsule 100 mg PO BID 14 Days Qty: 28 0RF sennosides-docusate sodium [Stool Softener-Stimulant Laxat] 8.6-50 mg Tablet 2 tab PO BID 3 Days Qty: 12 0RF Rx Instructions: Take until first bowel movement, then as needed tramadol 50 mg Tablet 50 - 100 mg PO Q6H PRN PRN (Reason: Pain Score 4-10) Qty: 0 0RF Continued losartan 25 mg tablet 25 mg PO DAILY sotalol [Sotalol AF] 80 mg tablet 40 mg PO BID atorvastatin 20 mg tablet 20 mg PO QHS omega-3 fatty acids-fish oil [Fish Oil] 360-1,200 mg capsule 1 cap PO DAILY acetaminophen 500 mg tablet 1,000 mg PO TID me-rwd-qrodu acid-lutein [Adult Multivitamin (w-lutein)] 200-137.5 mcg tablet,chewable 1 tab PO DAILY hydrochlorothiazide 25 MG tablet 25 mg PO DAILY rivaroxaban 20 MG tablet 20 mg PO DAILY Rx Instructions: will stop 5 days prior to surgery lutein 6 MG capsule 6 mg PO DAILY cyclobenzaprine 5 mg tablet 10 mg PO QHS PRN (Reason: LEG CRAMPS) sertraline 100 mg tablet 100 mg PO QHS Patient Comments: TAKE 1 TABLET BY MOUTH ONCE DAILY cholecalciferol (vitamin D3) [Vitamin D3] 125 mcg (5,000 unit) tablet 125 mcg PO DAILY vitamin A 2,400 mcg capsule 10,000 unit PO DAILY lidocaine [Lidocare] 4 % adhesive patch,medicated 1 patch topical DAILY PRN (Reason: pain) Rx Instructions: may leave on for up to 12 hrs lidocaine 4 % cream 1 applic topical Q8H PRN (Reason: pain) Discontinued tramadol 50 mg tablet 50 mg PO TID PRN (Reason: pain) Referrals / Follow Up: Physical,Therapy [Other] - 07/20/23 3:30 pm Hillary Rodriguez DO [Primary Care Provider] - Marc Marie PA-C [Med Staff - Adv Practice Prof] - 07/30/23 3:15 pm Disposition Disposition (needs filled in before D/C Order can be placed): Home, Self Care
[2023-07-16] MEDS: Sotalol Hydrochloride 80 MG Tablet 40 MG PO (10:58)
[2023-07-16] MEDS: Losartan Potassium 25 MG Tablet PO (10:58)
[2023-07-16] MEDS: Ensure Surgery 237 ML LIQUID PO (10:58)
[2023-07-16] MEDS: Senna/Docusate Sodium 1 Tablet 2 TABLET PO (10:58)
[2023-07-16] MEDS: Famotidine 20 MG Tablet PO (10:58)
[2023-07-16] MEDS: hydroCHLOROthiazide 25 MG Tablet PO (10:58)
[2023-07-16] MEDS: Doxycycline 100 MG CAPSULE PO (10:58)
[2023-07-16] MEDS: Cholecalciferol (Vit D3) 125 MCG CAPSULE (5,000 UNITS) PO (10:59)
[2023-07-16] MEDS: Rivaroxaban 20 MG Tablet PO (10:59)
--- NOTE | 2023-07-16 11:20 | CASEMGMT ---
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 Pt voices understanding and consents to?assessment?at this time.? Pt sitting up in chair in room in no distress at this time.? Pt is A/O at this time and answers all questions appropriately.?? Care providers, pharmacy, and demographics verified/updated at this time. PCP: Dr Hillary Rodriguez Specialists: Dr Clements-ortho, Dr Ferrari--pain mgnt @ [facility], Dr Colunga-cardiology Preferred Pharmacy: [facility] Retail Insurance:MCR, CHARISSE [employer]sover Prescription Benefit:?Yes Living Will/HPOA:?Pt does not currently have LW/HCPOA and declines info at this time.? Pt made aware that she can contact as an out-pt and make appt in the future if she decides she would like to talk with someone about this or would like to utilize [facility] social work for advanced directive completion. LNOK: 5 adult children. One dtr is Carly. Significant other, Tomer Living Arrangements: Lives w/Toemr in mobile home w/3 steps to enter. Pt was indep w/ADL's and IADL's prior to surgery. Tomer can assist as needed. Dtr, Carly, lives 2 miles away and can help as needed and other family members can also assist. Transportation:?Pt and Tomer both drive. 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 HHC/SNF: No hx of SNF. No hx of SNF. Has had HHC in the past. Pt wishes to return home w/OP therapy @ [facility] and states has no concerns with going home at time of discharge.?1st OP therapy appt scheduled for 07/20/23 @ 3:30 PM and pt is aware. ? CM?to follow for any further discharge planning/needs.? Pt voices no further concerns/needs at this time.? Advised pt to ask for?CM?if any further questions/concerns/needs arise.? Voices understanding. PLAN:??Home w/OP therapy @ [facility]. Omar BSN?RN?CM
--- NOTE | 2023-07-16 14:00 | CASEMGMT ---
Met with patient to complete RIVERA form. RIVERA form explained to patient who voiced understanding and signed form. Original form placed in pt?s chart and copy provided to patient. Katelyn Rivas, Discharge Planning Asst.
[2023-07-16 14:07] VITALS: BP 125/36; PULSE 73; RESP 16; TEMP 36.9; O2SAT 100
== END 2023-07-16 15:01 | disposition home or self-care (01) ==
LOC: SDC 13:09 → MS3 13:09
PROVIDERS: Anesthesiology; Admitting Provider Specialist; PCP Family Medicine; Referring Provider Specialist; Visit Provider Specialist
PROC: (CPT 27284; principal; 2023-07-15 08:50)
DX: M16.12 Unilateral primary osteoarthritis, left hip (principal); E11.40 Type 2 diabetes mellitus with diabetic neuropathy, unspecified; I48.0 Paroxysmal atrial fibrillation; E78.5 Hyperlipidemia, unspecified; I10 Essential (primary) hypertension; Z79.891 Long term (current) use of opiate analgesic; M79.7 Fibromyalgia; Z79.899 Other long term (current) drug therapy; Z79.01 Long term (current) use of anticoagulants; E55.9 Vitamin D deficiency, unspecified; F32.A Depression, unspecified; Z86.14 Personal history of Methicillin resistant Staphylococcus aureus infection
CPT/HCPCS: 27130; 01214; 36415; 73501; 73502; 76000; 80048; 82040; 82962; 83735; 85025; 85027; 87077; 87081; 88305; 88311; 93005; 94668; 96365; 96366; 97110; 97116; 97162; 97166; 97530; 97535; 99221; 99252; C1776; J7040; J7050; J7120; G0378; G0463; J2405

== ENCOUNTER 2024-06-12 13:19 | Observation (INO) | payer MEDICARE, MEDICAID, SELFPAY ==
[2024-06-12] VITALS (8 sets, daily range): BP systolic 82–161; BP diastolic 59–81; PULSE 59–73; RESP 16–22; TEMP 36.2–36.8; O2SAT 96–99; BMI 35.8
--- NOTE | 2024-06-12 14:11 | EX.ED.DYSGE1 ---
HPI <ENZO Novak - Last Filed: 06/12/24 17:31> History of Present Illness Chief Complaint: Abd Pain Narrative Narrative: Patient is a 73-year-old male patient is a 73-year-old female with history of chronic back pain, hypertension prediabetes, history of atrial fibrillation however is no longer on any anticoagulation. Presenting to the emergency department with left lower quadrant abdominal pain is been ongoing for 1 month. Patient thought that it was from her back, she then thought was from her hip. Patient was seen 1 week ago at [facility], had a CT scan that was negative. Patient was discharged home. She states the pain is continuing, and is getting worse. Patient states she is having trouble getting out of bed, performing daily activities. She denies any nausea or vomiting. Nu[place] any blood in her stool or vomit. Denies any fever or chills. Patient is here for reevaluation. [facility] <ENZO Novak - Last Filed: 06/12/24 17:31> [facility] Medical History Scarlet fever Atrial fibrillation Hypertension Loss of hearing Wears glasses Wears dentures Cancer Depression Scab Diabetes Ambulates with cane Bladder disease Anemia Back pain Migraine headache Injury of head and neck History of ulceration Shortness of breath on exertion Non-smoker Leg cramps History of pain when walking Normal Holter exam History of echocardiogram History of stress test Cardiology follow-up encounter HLD (hyperlipidemia) Rheumatoid arthritis First degree AV block Fibromyalgia TIA (transient ischemic attack) Essential hypertension Paroxysmal atrial fibrillation Infection of prosthetic left knee joint Home Medications ?Medication ?Instructions ?Recorded ?Last Taken ?Type hydrochlorothiazide 25 mg tablet 25 mg PO DAILY BP 06/22/19 06/12/24 History lutein 6 mg capsule 6 mg PO DAILY SUPPLEMENT 06/22/19 06/12/24 History acetaminophen 500 mg tablet 1,000 mg PO TID 10/17/22 06/12/24 History atorvastatin 20 mg tablet 20 mg PO QHS 10/17/22 06/12/24 History losartan 25 mg tablet 25 mg PO DAILY 10/17/22 06/12/24 History omega-3 fatty acids-fish oil 360 1 cap PO DAILY 10/17/22 Unknown History mg-1,200 mg capsule (Fish Oil) cyclobenzaprine 5 mg tablet 10 mg PO QHS PRN LEG CRAMPS 02/03/23 06/11/24 History cholecalciferol (vitamin D3) 125 125 mcg PO DAILY 06/25/23 06/11/24 History mcg (5,000 unit) tablet (Vitamin D3) lidocaine 4 % topical patch 1 patch topical DAILY PRN pain 06/25/23 06/12/24 History (Lidocare) sertraline 100 mg tablet 100 mg PO QHS 06/25/23 06/11/24 History vitamin A 2,400 mcg capsule 10,000 unit PO DAILY 06/25/23 06/12/24 History multivit with min-folic 1 tab PO DAILY 06/30/23 Unknown History acid-lutein 200 mcg-137.5 mcg chewable tablet (Adult Multivitamin (w-lutein)) sennosides 8.6 mg-docusate sodium 2 tab PO BID 3 days #12 tabs 07/16/23 06/08/24 Rx 50 mg tablet (Stool Softener-Stimulant Laxative) tramadol 50 mg tablet 50 - 100 mg (1 - 2 x 50 mg) PO Q6H 07/16/23 06/12/24 Rx PRN PRN Pain Score 4-10 #0 tabs sotalol 80 mg tablet (Sotalol AF) 40 mg (1/2 x 80 mg) PO BID #180 11/19/23 06/16/24 Rx tabs prednisone 10 mg tablet 20 mg (2 x 10 mg) PO BID #27 tabs 06/16/24 Unknown Rx Allergy/AdvReac Type Severity Reaction Status Date / Time diazepam (From Valium) Allergy Other Verified 06/12/24 13:35 latex Allergy Rash Verified 06/12/24 13:35 lisinopril Allergy Anaphylaxis Verified 06/12/24 13:35 morphine Allergy Rash Verified 06/12/24 13:35 Family History Father CAD (coronary artery disease) Myocardial infarction, Onset Age: 55 Mother Hypertension CHF (congestive heart failure) Brother Myocardial infarction, Onset Age: 43 Sister CHF (congestive heart failure) Diabetes CKD (chronic kidney disease) Sister COPD (chronic obstructive pulmonary disease) Cancer Lung Sister Hypertension Cardiac pacemaker in situ Surgical History S/P hysterectomy Hx of laparoscopy Hx of tubal ligation Hx of total hysterectomy Hx of right cataract extraction Hx of left cataract extraction History of left knee replacement History of rotator cuff surgery History of total right hip replacement Social History Smoking Status: Never smoker alcohol intake: never substance use type: does not use caffeine: Yes Type: carbonated beverages, coffee and tea ROS <ENZO Novak - Last Filed: 06/12/24 17:31> ROS ED ROS Narrative Constitutional: Negative for fever, chills, weight loss, weakness Eyes: Negative for vision loss, vision change, double vision ENT: Negative for any sore throat, ear pain, congestion Cardiovascular: Negative for any chest pain, tightness, palpitations Respiratory: Negative for any cough, sputum production, hemoptysis, dyspnea, dyspnea on exertion, orthopnea Gastrointestinal: Negative for any nausea, vomiting, diarrhea, constipation, blood in stool, blood in vomit. Positive left lower abdominal pain : Negative for any urinary frequency, dysuria, retention, blood in urine Muscle skeletal: Negative for any neck pain, back pain Neurological: Negative for any headache, syncope, dizziness Skin: Negative for any rashes, itching, abrasions, lacerations Psychiatric: Negative for any depression, anxiety, stress, suicidal ideation, homicidal ideation Hematologic: Negative for any excessive bruising, easy bleeding EXAM <ENZO Novak - Last Filed: 06/12/24 17:31> Physical Exam Narrative Exam Narrative: Vital signs reviewed. HEET: Head normocephalic atraumatic, TMs clear bilaterally. Posterior pharynx is clear, moist mucous membranes. Nares clear bilaterally. Neck: Supple with no lymphadenopathy or tenderness. No signs of meningismus. Cardiac: Regular rate and rhythm no murmurs gallops or rubs, equal peripheral pulses bilaterally. Respiratory: Lungs clear to auscultation bilaterally. No chest tenderness. Abdomen: Soft, nondistended. No abdominal bruit or pulsatile masses. No hepatosplenomegaly. Patient's tenderness is deep left lower quadrant. There is no pelvic pain, no pain to the left lower back, active bowel sounds in all quadrants. No peritoneal signs. Extremities: No peripheral edema, no signs of gross trauma or deformity. Active full range of motion of all extremities. Neuro: Cranial nerves II through XII intact, no focal neurological deficits. Skin: Clean dry and intact with no rash, purpura, petechiae, vesicles or pustules. Backs/flank: No CVA tenderness, no midline spinal tenderness, no deformity. Psych: Normal mood and affect. No SI, HI or acute psychosis. Const Vital Signs: 06/12/24 13:20 06/12/24 15:20 06/12/24 17:00 Temperature 97.2 F L Temperature Source Temporal Pulse Rate 73 61 Respiratory Rate 22 H 16 Blood Pressure 82/69 L 161/70 H 158/81 H Blood Pressure Mean 73 100 106 Pulse Ox 97 98 Oxygen Delivery Method Room Air Room Air 06/12/24 17:22 Temperature 97.7 F L Temperature Source Pulse Rate 59 L Respiratory Rate 18 Blood Pressure 158/81 H Blood Pressure Mean 106 Pulse Ox 99 Oxygen Delivery Method Positive well nourished and well developed General Appearance ED: well developed <Dr. Wanda Bhatti DO - Last Filed: 06/17/24 11:53> Physical Exam Const Vital Signs: 06/12/24 13:20 06/12/24 15:20 06/12/24 17:00 Temperature 97.2 F L Temperature Source Temporal Pulse Rate 73 61 Respiratory Rate 22 H 16 Blood Pressure 82/69 L 161/70 H 158/81 H Blood Pressure Mean 73 100 106 Pulse Ox 97 98 Oxygen Delivery Method Room Air Room Air 06/12/24 17:22 Temperature 97.7 F L Temperature Source Pulse Rate 59 L Respiratory Rate 18 Blood Pressure 158/81 H Blood Pressure Mean 106 Pulse Ox 99 Oxygen Delivery Method MDM <ENZO Novak - Last Filed: 06/12/24 17:31> [facility] Lab Data Labs: Laboratory Results - last 24 hr 06/12/24 06/12/24 06/12/24 13:30 14:37 15:24 WBC 8.0 RBC 4.84 Hgb 13.9 Hct 44.3 MCV 91.5 MCH 28.7 MCHC 31.4 L RDW Std Deviation 47.4 H RDW Coeff of Pat 14.1 Plt Count 268 MPV 9.3 Immature Gran % (Auto) 0.500 Neut % (Auto) 65.5 Lymph % (Auto) 24.2 [place] % (Auto) 6.9 Eos % (Auto) 2.1 Baso % (Auto) 0.8 Absolute Neuts (auto) 5.2 Absolute Lymphs (auto) 1.93 Nucleated RBC % 0 Sodium 139 Potassium 4.6 Chloride 104 Carbon Dioxide 29.0 Anion Gap 6 BUN 28 H Creatinine 0.91 Est GFR (MDRD) Af Amer 78 Est GFR (MDRD) Non-Af 64 BUN/Creatinine Ratio 30.8 H Glucose 112 H Lactic Acid 0.8 Calcium 9.8 Total Bilirubin 0.70 AST 16 ALT 18 Alkaline Phosphatase 121 H Total Protein 7.9 Albumin 4.0 Globulin 3.9 Albumin/Globulin Ratio 1.0 Lipase 59 Urine Color Yellow Urine Clarity Sl. Cloudy Urine pH 6.0 Ur Specific [place]aver 1.015 Urine Protein 15 H Urine Glucose (UA) Normal Urine Ketones Negative Urine Occult Blood 10 H Urine Nitrite Negative Urine Bilirubin Negative Urine Urobilinogen Normal Ur Leukocyte Esterase 500 H Urine RBC 0-5 SEEN Urine WBC 0-5 SEEN Ur Squamous Epith Cells 5-10 SEEN Ur Transition Epith Cell 0-5 SEEN Urine Bacteria 1+ Urine Mucus 1+ Treatment and Re-Evaluation :: Differential diagnosis includes however is not limited to: Diverticulitis, bowel obstruction, constipation, unknown etiology, muscle strain Patient appears to be in no obvious distress, initial blood pressure was 82/69, on reevaluation, the patient's blood pressure is 169/74. This might have been a mistake. Presenting to the emergency department with complaints of 1 month of left lower quadrant abdominal pain. Patient did have a CT scan at [facility]. I will see if I can get the CT scan to see what they did. Patient will receive basic laboratory values today, CBC CMP lipase as well as lactic acid. Patient be given IV fluids, Zofran, 0.5 mg Dilaudid. Patient will be reevaluated. Patient's CT scan from [facility] on June 06, 2024. Patient CT scan shows that the uterus is absent, no evidence of any acute abdominal or pelvic abnormality. Mild left renal atrophy. Hepatic cyst. No other acute process.Patient CBC was unremarkable, chemistries were unremarkable, lipase was negative. Patient's urinalysis was positive for infection, this was sent for culture. Patient was ambulated, even despite the pain medicine, patient had significant pain, could only take a couple steps until she doubled over in pain. Secondary to the patient not being able to care for self at home, patient will need admitted to the hospital. I spoke with hospitalist, patient stable for admission. <Dr. Wanda Bhatti, DO - Last Filed: 06/17/24 11:53> [facility] Lab Data Attestation: I reviewed the patient's lab results. Labs: Laboratory Results - last 24 hr 06/12/24 06/12/24 06/12/24 13:30 14:37 15:24 WBC 8.0 RBC 4.84 Hgb 13.9 Hct 44.3 MCV 91.5 MCH 28.7 MCHC 31.4 L RDW Std Deviation 47.4 H RDW Coeff of Pat 14.1 Plt Count 268 MPV 9.3 Immature Gran % (Auto) 0.500 Neut % (Auto) 65.5 Lymph % (Auto) 24.2 [place] % (Auto) 6.9 Eos % (Auto) 2.1 Baso % (Auto) 0.8 Absolute Neuts (auto) 5.2 Absolute Lymphs (auto) 1.93 Nucleated RBC % 0 Sodium 139 Potassium 4.6 Chloride 104 Carbon Dioxide 29.0 Anion Gap 6 BUN 28 H Creatinine 0.91 Est GFR (MDRD) Af Amer 78 Est GFR (MDRD) Non-Af 64 BUN/Creatinine Ratio 30.8 H Glucose 112 H Lactic Acid 0.8 Calcium 9.8 Total Bilirubin 0.70 AST 16 ALT 18 Alkaline Phosphatase 121 H Total Protein 7.9 Albumin 4.0 Globulin 3.9 Albumin/Globulin Ratio 1.0 Lipase 59 Urine Color Yellow Urine Clarity Sl. Cloudy Urine pH 6.0 Ur Specific [place] 1.015 Urine Protein 15 H Urine Glucose (UA) Normal Urine Ketones Negative Urine Occult Blood 10 H Urine Nitrite Negative Urine Bilirubin Negative Urine Urobilinogen Normal Ur Leukocyte Esterase 500 H Urine RBC 0-5 SEEN Urine WBC 0-5 SEEN Ur Squamous Epith Cells 5-10 SEEN Ur Transition Epith Cell 0-5 SEEN Urine Bacteria 1+ Urine Mucus 1+ Treatment and Re-Evaluation :: Differential diagnosis includes however is not limited to: Diverticulitis, bowel obstruction, constipation, unknown etiology, muscle strain Patient appears to be in no obvious distress, initial blood pressure was 82/69, on reevaluation, the patient's blood pressure is 169/74. This might have been a mistake. Presenting to the emergency department with complaints of 1 month of left lower quadrant abdominal pain. Patient did have a CT scan at [facility]. I will see if I can get the CT scan to see what they did. Patient will receive basic laboratory values today, CBC CMP lipase as well as lactic acid. Patient be given IV fluids, Zofran, 0.5 mg Dilaudid. Patient will be reevaluated. Patient's CT scan from [facility] on June 06, 2024. Patient CT scan shows that the uterus is absent, no evidence of any acute abdominal or pelvic abnormality. Mild left renal atrophy. Hepatic cyst. No other acute process.Patient CBC was unremarkable, chemistries were unremarkable, lipase was negative. Patient's urinalysis was positive for infection, this was sent for culture. Patient was ambulated, even despite the pain medicine, patient had significant pain, could only take a couple steps until she doubled over in pain. Secondary to the patient not being able to care for self at home, patient will need admitted to the hospital. I spoke with hospitalist, patient stable for admission. I have personally performed a face to face assessment of the patient and have reviewed the MARIBEL Note. I performed a substantive portion of the visit including all aspects of the following. My seals findings include: History is patient is a 73 year old female with history of Chronic pain, osteoarthritis, proximal atrial fibrillation and hypertension presenting for 1 month of this persistent and worsening left lower quadrant abdominal pain. She is a pinpoint area where it hurts. She previously had a CT of the abdomen pelvis performed at [facility] with oral and IV contrast. This is reviewed through [facility] did not show any acute process. The pain is worse with movement and certain positions. I question if she actually has some type of radiculopathy or nerve pain that is causing her symptoms. She does voice concern given her age and symptoms that she is not able to adequately care for herself. Patient is given IV Dilaudid for pain control and her pain comes back pretty quickly. Will admit the patient for further pain control and evaluation of the cause of this pain. In addition she is found to have what looks to be a possible urinary tract infection based on urinalysis however it is contaminated. Will send for culture. Is given a dose of antibiotics in the emergency room. He discussed admitting physician and admitted to the medicine service. Discussed potential need for PT/OT as well as usp placement. Have a lower suspicion that her pain is associated with urinary tract infection/pyelonephritis given the longevity of her pain and location of it. Edition patient is afebrile with a normal white blood cell count. Other additions or changes: [None] Discharge Plan Dx/Rx/DC Orders Clinical Impression: Intractable abdominal pain, Acute UTI Disposition Disposition: [facility] Discharge Date/Time: 06/12/24 17:46
[2024-06-12 14:18] LABS: Absolute Lymphocyte Count 1.93 X10^3/uL (0.83-4.51); Absolute Neutrophil Count 5.2 X10^3/uL (2.0-7.7); Basophil# 0.06 X10^3/uL; Basophil% 0.8 % (0-1); Eosinophil# 0.17 X10^3/uL; Eosinophils% 2.1 % (0-5); Hematocrit 44.3 % (37-47); Hemoglobin 13.9 g/dL (12.0-15.0); Lymphocyte # 1.93 X10^3/ul (0.83-4.51); Lymphocyte % 24.2 % (19-41); Mean Corp Hgb Conc 31.4 g/dL (32-36); Mean Corpuscular Hgb 28.7 pg (27.0-32.0); Mean Corpuscular Volume 91.5 fL (81-99); Mean Platelet Vol. 9.3 fl (6.2-12.0); Monocyte# 0.55 X10^3/uL; Monocyte% 6.9 % (0-10); NRBC Flagged by Analyzer 0 % (0-5); Neutrophil # 5.24 X10^3/uL (2.7-7.7); Neutrophil % 65.5 % (47-70); Platelet Count 268 K/mm3 (150-450); RBC Distribution Width CV 14.1 % (11.6-14.6); RBC Distribution Width SD 47.4 fl (35.1-43.9); Red Blood Count 4.84 M/mm3 (4.2-5.4)
[2024-06-12] MEDS: HYDROmorphone 1 MG/ML Syringe 0.5 MG IV (14:35)
[2024-06-12] MEDS: Ondansetron 4 MG/2 ML Vial IV (14:35)
[2024-06-12] MEDS: 0.9% Normal Saline (1000mL) 1,000 ML 999 ML IV (14:35)
[2024-06-12 14:36] LABS: AST(SGOT) 16 U/L (15-37); Alanine Aminotransfer ALT/SGPT 18 U/L (13-56); Alkaline Phosphatase 121 U/L (45-117); Anion Gap 6 (5-15); BUN 28 mg/dL (7-18); BUN/Creat Ratio 30.8 RATIO (10-20); Calcium,Total 9.8 mg/dL (8.5-10.1); Chloride 104 mmol/L (98-107); Creatinine, Serum 0.91 mg/dL (0.55-1.02); EST Glomerular Filtration Rate 64 mL/min (>60); Est Glom Filt Rate - Afr Amer 78 mL/min (>60); Globulin 3.9 g/dL (2.2-4.2); Glucose 112 mg/dL (74-106); Lipase 59 U/L (13-75); Potassium 4.6 mmol/L (3.5-5.1); Protein, Total 7.9 g/dL (6.4-8.2); Sodium Level 139 mmol/L (136-145)
[2024-06-12 15:16] LABS: Lactic Acid 0.8 mmol/L (0.4-1.9)
[2024-06-12 15:48] LABS: Color, Urine Yellow (Yellow); Glucose, Dipstick Normal (Normal); Ketone-Dipstick Negative (Negative); Leukocyte Esterase-Dipstick 500 /ul (Negative); Nitrite-Dipstick Negative (Negative); Occult Blood-Urine 10 /ul (Negative); Protein-Dipstick 15 mg/dl (Negative); Specific Gravity, Urine 1.015 (1.002-1.030); Urine Bilirubin Dipstick Negative (Negative); Urine Clarity Sl. Cloudy (Clear); Urine Urobilinogen Normal (Normal)
[2024-06-12 15:58] LABS: Red Blood Cells-Urine 0-5 SEEN /hpf (0-5); Squamous Epithelial Cells - UA 5-10 SEEN /hpf (5-10); White Blood Cells 0-5 SEEN /hpf (0-5)
[2024-06-12 15:59] LABS: Bacteria 1+ /hpf (None Seen); Mucous, Urine 1+ /hpf (<or=2+); Transitional Epithelial - Ur 0-5 SEEN /hpf (0-5)
--- NOTE | 2024-06-12 17:22 | PCM.HP.STD ---
HPI - General General Date of Admission: 06/12/24 Date of Service: 06/12/24 Chief Complaint: Worsening debility, chronic abdominal pain HPI Narrative JOSAFAT CORDOBA, is a 73 F who presented to [facility] ED on 06/12/2024 with worsening debility and chronic abdominal pain. Patient has history of chronic back and hip pain. She follows with pain management for this. Over the last month or so, she has had worsening left lower quadrant abdominal pain of unclear etiology. She was seen in the ED at [facility] for this on 06/06. CT abdomen pelvis done there showed no concerning findings. She was discharged home with plan to follow-up with her pain management doctor. She is continue to have this pain since then and per her significant other, she has had significant difficulty getting around the house without assistance. He was concerned that he could not care for her at home so she was brought in for further evaluation. Hemodynamically stable and labs fairly benign in the ED. UA did show 500 leukocyte esterase and 1+ bacteria concerning for a possible UTI. Given her worsening debility and possible need for SNF placement, hospitalist was contacted for admission. I saw the patient at bedside in the ED, significant other present. Patient had been given doses of Dilaudid and Zofran along with a liter of fluids prior to my encounter with her and stated she was feeling somewhat improved from a pain standpoint with this. Per her pain management doctor, she is taking 2 Tylenol and 1 tramadol as needed every 6 hours, with up to 2 doses of Aleve daily for breakthrough pain. She states that this generally has been helpful for her pain and she wanted to continue on this regimen while here. She denies any significant pain or difficulty with urination. She denies any fevers or chills. No other acute concerns at this time. [facility] Medical History Ambulates with cane Anemia Back pain Bladder disease Cancer Cardiology follow-up encounter Depression Diabetes Essential hypertension Fibromyalgia First degree AV block History of echocardiogram History of pain when walking History of stress test History of ulceration HLD (hyperlipidemia) Infection of prosthetic left knee joint Injury of head and neck Leg cramps Loss of hearing Migraine headache Non-smoker Normal Holter exam Paroxysmal atrial fibrillation Rheumatoid arthritis Scab Shortness of breath on exertion TIA (transient ischemic attack) Wears dentures Wears glasses Home Medications ?Medication ?Instructions ?Recorded ?Last Taken ?Type hydrochlorothiazide 25 mg tablet 25 mg PO DAILY BP 06/22/19 06/12/24 History lutein 6 mg capsule 6 mg PO DAILY SUPPLEMENT 06/22/19 06/12/24 History acetaminophen 500 mg tablet 1,000 mg PO TID 10/17/22 06/12/24 History atorvastatin 20 mg tablet 20 mg PO QHS 10/17/22 06/12/24 History losartan 25 mg tablet 25 mg PO DAILY 10/17/22 06/12/24 History omega-3 fatty acids-fish oil 360 1 cap PO DAILY 10/17/22 Unknown History mg-1,200 mg capsule (Fish Oil) cyclobenzaprine 5 mg tablet 10 mg PO QHS PRN LEG CRAMPS 02/03/23 06/11/24 History cholecalciferol (vitamin D3) 125 125 mcg PO DAILY 06/25/23 06/11/24 History mcg (5,000 unit) tablet (Vitamin D3) lidocaine 4 % topical patch 1 patch topical DAILY PRN pain 06/25/23 06/12/24 History (Lidocare) sertraline 100 mg tablet 100 mg PO QHS 06/25/23 06/11/24 History vitamin A 2,400 mcg capsule 10,000 unit PO DAILY 06/25/23 06/12/24 History multivit with min-folic 1 tab PO DAILY 06/30/23 Unknown History acid-lutein 200 mcg-137.5 mcg chewable tablet (Adult Multivitamin (w-lutein)) sennosides 8.6 mg-docusate sodium 2 tab PO BID 3 days #12 tabs 07/16/23 06/08/24 Rx 50 mg tablet (Stool Softener-Stimulant Laxative) tramadol 50 mg tablet 50 - 100 mg (1 - 2 x 50 mg) PO Q6H 07/16/23 06/12/24 Rx PRN PRN Pain Score 4-10 #0 tabs sotalol 80 mg tablet (Sotalol AF) 40 mg (1/2 x 80 mg) PO BID #180 11/19/23 06/12/24 Rx tabs Allergy/AdvReac Type Severity Reaction Status Date / Time diazepam (From Valium) Allergy Other Verified 06/12/24 13:35 latex Allergy Rash Verified 06/12/24 13:35 lisinopril Allergy Anaphylaxis Verified 06/12/24 13:35 morphine Allergy Rash Verified 06/12/24 13:35 Family History Father CAD (coronary artery disease) Myocardial infarction, Onset Age: 55 Mother Hypertension CHF (congestive heart failure) Brother Myocardial infarction, Onset Age: 43 Sister CHF (congestive heart failure) Diabetes CKD (chronic kidney disease) Sister COPD (chronic obstructive pulmonary disease) Cancer Lung Sister Hypertension Cardiac pacemaker in situ Surgical History History of left knee replacement History of rotator cuff surgery History of total right hip replacement Hx of laparoscopy Hx of left cataract extraction Hx of right cataract extraction Hx of total hysterectomy Hx of tubal ligation Social History Smoking Status: Never smoker alcohol intake: never substance use type: does not use caffeine: Yes Type: carbonated beverages, coffee and tea ROS Constitutional Constitutional: Reports fatigue and weakness; Denies chills or fever(s) Eyes Eyes: Denies change in vision Cardiovascular Cardiovascular: Denies chest pain Respiratory/Chest Respiratory/Chest: Denies shortness of breath at rest Gastrointestinal Gastrointestinal: Reports abdominal pain; Denies constipation, diarrhea, nausea or vomiting Genitourinary Genitourinary: Denies difficulty urinating, dysuria, hematuria or urinary frequency Musculoskeletal Musculoskeletal: Reports arthralgias and back pain; Denies myalgias Neurologic Neurologic: Denies dizziness, focal weakness or headache(s) Vital Signs Vital Signs Vital Signs: 06/12/24 13:20 06/12/24 15:20 06/12/24 17:00 Temperature 97.2 F L Temperature Source Temporal Pulse Rate 73 61 Respiratory Rate 22 H 16 Blood Pressure 82/69 L 161/70 H 158/81 H Blood Pressure Mean 73 100 106 Pulse Ox 97 98 Oxygen Delivery Method Room Air Room Air Physical Exam Const alert, oriented x3 and no apparent distress Constitutional Narrative: Elderly female, morbidly obese, mildly fatigued appearing, otherwise sitting up comfortably in bed, conversing normally, in no acute distress. General Appearance: cooperative and comfortable HEENT normocephalic, head/scalp atraumatic, hearing grossly normal bilaterally and nasal mucous membranes and turbinates normal HEENT Narrative: Somewhat dry mucous membranes. Eyes PERRL, EOMs intact bilaterally and conjunctivae normal Neck full ROM Chest inspection of chest normal Resp normal respiratory effort, normal air movement, no use of accessory muscles and clear to auscultation bilaterally Cardio regular rate, regular rhythm, no murmurs and peripheral pulses 2+ throughout GI GI Narrative: Very mild tenderness to palpation in left lower quadrant. Abdomen otherwise soft and nondistended with normal bowel sounds. Back/Spine normal ROM Extremity normal to inspection, full ROM and no pedal edema Skin no rashes or lesions noted Neuro moves all extremities and no focal motor deficits Speech: speech normal Psych mental status grossly normal Results Lab / Micro Data 06/12/24 13:30 06/12/24 13:30 Labs: Laboratory Results - last 24 hr 06/12/24 13:30: WBC 8.0, RBC 4.84, Hgb 13.9, Hct 44.3, MCV 91.5, MCH 28.7, MCHC 31.4 L, RDW Std Deviation 47.4 H, RDW Coeff of Pat 14.1, Plt Count 268, MPV 9.3, Immature Gran % (Auto) 0.500, Neut % (Auto) 65.5, Lymph % (Auto) 24.2, [place] % (Auto) 6.9, Eos % (Auto) 2.1, Baso % (Auto) 0.8, Absolute Neuts (auto) 5.2, Absolute Lymphs (auto) 1.93, Nucleated RBC % 0, Sodium 139, Potassium 4.6, Chloride 104, Carbon Dioxide 29.0, Anion Gap 6, BUN 28 H, Creatinine 0.91, Est GFR (MDRD) Af Amer 78, Est GFR (MDRD) Non-Af 64, BUN/Creatinine Ratio 30.8 H, Glucose 112 H, Calcium 9.8, Total Bilirubin 0.70, AST 16, ALT 18, Alkaline Phosphatase 121 H, Total Protein 7.9, Albumin 4.0, Globulin 3.9, Albumin/Globulin Ratio 1.0, Lipase 59 06/12/24 14:37: Lactic Acid 0.8 06/12/24 15:24: Urine Color Yellow, Urine Clarity Sl. Cloudy, Urine pH 6.0, Ur Specific [place] 1.015, Urine Protein 15 H, Urine Glucose (UA) Normal, Urine Ketones Negative, Urine Occult Blood 10 H, Urine Nitrite Negative, Urine Bilirubin Negative, Urine Urobilinogen Normal, Ur Leukocyte Esterase 500 H, Urine RBC 0-5 SEEN, Urine WBC 0-5 SEEN, Ur Squamous Epith Cells 5-10 SEEN, Ur Transition Epith Cell 0-5 SEEN, Urine Bacteria 1+, Urine Mucus 1+ Assessment & Plan Assessment/Plan (1) Debility: (2) Intractable abdominal pain: (3) Osteoarthritis: (4) Acute UTI: PLAN: Plan Patient is a 73-year-old female who presented [facility] ED on 06/12/2024 with worsening debility and chronic abdominal pain. 1. Acute on chronic debility ? Admit under observation status to [facility]. PT/OT/case management consulted. Chronic debility is multifactorial from age, chronic hip and back pain and morbid obesity. Suspect acute worsening is due to reduced p.o. intake and reduced activity in setting of ongoing chronic abdominal pain as noted below. Will likely need either SNF placement or home with home health care on discharge. 2. Chronic abdominal pain, history of chronic back and hip pain s/p left total hip replacement ? Unclear etiology of abdominal pain. CT abdomen pelvis at outside hospital on 06/06 was not acute. Abdomen soft and nondistended with only mild tenderness in LLQ on this admission. Lab workup benign. Could possibly be due to UTI as noted below but more likely is due to referred pain from back and hip. Follows with outpatient pain management, will continue home regimen of Tylenol and tramadol every 6 hours as needed, and naproxen up to twice daily as needed. 3. Concern for UTI ? UA on admit showed 500 leukocyte esterase, negative nitrites, 1+ bacteria. Urine culture pending. Patient reports history of a few UTIs, none recently. No urine culture data available in our system. Will treat empirically with IV ceftriaxone for now. Chronic medical conditions: ? Morbid obesity: BMI around 40 on admit. Complicates hospital course, care and prognosis. ? Anxiety/depression: Stable. Continue home sertraline. ? Paroxysmal A-fib: Normal sinus rhythm on admit. Continue home sotalol. Not on anticoagulation for unclear reason. ? Hypertension: Mildly hypertensive on admit. Continue home losartan and hydrochlorothiazide. DVT prophylaxis: Lovenox twice daily CODE STATUS: Full code, verified Expected disposition: TBD Total clinical time spent by myself addressing the patient's medical issues, reviewing all the data, and collaborating with patient's care team: 55 minutes. Charges/Coding Visit Charges Inpatient E&M: 34972 Init Hosp L2
--- NOTE | 2024-06-12 18:45 | RAD_ITS ---
STUDY: X-RAY - ABDOMEN/PELVIS REASON FOR EXAM: Female, 73 years old. worsening abd pain w/ h/o constipation TECHNIQUE: KUB COMPARISON: None. FINDINGS: Normal visualized lung bases. Mild nonspecific ileus.. No evidence for small bowel obstruction There is no demonstrated free abdominal air. The visualized liver, spleen and kidneys are grossly normal in size and morphology. Normal soft tissue structures. Lumbar spine demonstrates scoliosis and degenerative change.. Bilateral hip prostheses are noted RAD/Abdomen Single View (Portable) IMPRESSION: Mild nonspecific ileus. Electronically Signed: Dick Mallory MD at 20:12 EDT ,
[2024-06-12] MEDS: Ceftriaxone 1 GM/50 ML BAG IV (18:57)
[2024-06-12] MEDS: 0.9% Saline Lock 10 ML Syringe IV ×2 (18:57→21:05)
--- NOTE | 2024-06-12 19:06 | EKG12_ITS ---
Test Reason : DYSRHYTHMIA Blood Pressure : / mmHG Vent. Rate : 068 BPM Atrial Rate : 068 BPM P-R Int : 166 ms QRS Dur : 088 ms QT Int : 396 ms P-R-T Axes : 005 002 049 degrees QTc Int : 421 ms Normal sinus rhythm Inferior infarct , age undetermined Abnormal ECG When compared with ECG of 12-JUN-2024 19:07, MANUAL COMPARISON REQUIRED, DATA IS UNCONFIRMED Confirmed by BENOIT SWAN, AUDI ([id number]), sports editor JUS WORTHY ([id number]) on 06/13/2024 2:12:41 PM Referred By: GEMA Confirmed By:AUDI LABOY MD
--- NOTE | 2024-06-12 19:07 | EKG12_ITS ---
Test Reason : DYSRHYTHMIA Blood Pressure : / mmHG Vent. Rate : 066 BPM Atrial Rate : 066 BPM P-R Int : 176 ms QRS Dur : 084 ms QT Int : 398 ms P-R-T Axes : 059 011 061 degrees QTc Int : 417 ms Sinus rhythm with Premature atrial complexes in a pattern of bigeminy Inferior infarct , age undetermined Abnormal ECG When compared with ECG of 25-JUN-2023 13:43, Premature atrial complexes are now Present Nonspecific T wave abnormality, worse in Lateral leads Confirmed by BENOIT SWAN, AUDI ([id number]), editor book JOHN EDMONDS ([id number]) on 06/13/2024 2:32:05 PM Referred By: GEMA Confirmed By:AUDI LABOY MD
[2024-06-12] MEDS: traMADol 50 MG Tablet PO (20:26)
[2024-06-12] MEDS: Sotalol Hydrochloride 80 MG Tablet 40 MG PO (21:03)
[2024-06-12] MEDS: Senna/Docusate Sodium 1 Tablet 2 TABLET PO (21:03)
[2024-06-12] MEDS: Sertraline 100 MG Tablet PO (21:03)
[2024-06-13 00:45] VITALS: BP 136/58; PULSE 67; RESP 18; TEMP 36.6; O2SAT 97
[2024-06-13] MEDS: Acetaminophen 325 MG Tablet 650 MG PO ×3 (00:46→22:05)
[2024-06-13 04:57] VITALS: BP 116/50; PULSE 60; RESP 18; TEMP 36.9; O2SAT 100
[2024-06-13 06:25] LABS: Hematocrit 39.7 % (37-47); Hemoglobin 12.2 g/dL (12.0-15.0); Mean Corp Hgb Conc 30.7 g/dL (32-36); Mean Corpuscular Hgb 28.9 pg (27.0-32.0); Mean Corpuscular Volume 94.1 fL (81-99); Mean Platelet Vol. 9.1 fl (6.2-12.0); Platelet Count 199 K/mm3 (150-450); RBC Distribution Width CV 14.2 % (11.6-14.6); RBC Distribution Width SD 49.3 fl (35.1-43.9); Red Blood Count 4.22 M/mm3 (4.2-5.4); White Blood Count 6.6 K/mm3 (4.4-11.0)
[2024-06-13 06:35] LABS: Anion Gap 4 (5-15); BUN 23 mg/dL (7-18); BUN/Creat Ratio 30.8 RATIO (10-20); Calcium,Total 9.1 mg/dL (8.5-10.1); Chloride 102 mmol/L (98-107); Creatinine, Serum 0.75 mg/dL (0.55-1.02); EST Glomerular Filtration Rate 81 mL/min (>60); Est Glom Filt Rate - Afr Amer 98 mL/min (>60); Glucose 118 mg/dL (74-106); Potassium 3.9 mmol/L (3.5-5.1); Sodium Level 136 mmol/L (136-145)
[2024-06-13 07:30] VITALS: O2SAT 94
--- NOTE | 2024-06-13 10:15 | CASEMGMT ---
YU PATRICIA Assessment: Face to Face with pt for initial transition planning/care coordination assessment. YU PATRICIA introduced self and role at [facility], pt voices understanding and consents to assessment. Pt is A&O x4 and answers all questions appropriately at this time. Pt sitting up in bed in no distress. Pt 2 granddaughters in room, pt agreeable to answering questions with family present. Care providers, pharmacy, and demographics verified/updated. Strata: 2 Admitting Dx: Worsening debility PCP: Marley Specialists: Starr, Orthopedic; Vega, pain management. Preferred Pharmacy: [facility]. Insurance: [employer] [facility]. Prescription Benefit: yes LNOK: Sig other, granddaughter Living Arrangements: Pt lives with significant other in a mobile home with 7 steps to enter. ADLs: Pt reports I at home with ADLs and IADLs. Transportation: Pt drives self and denies concerns with transportation. Pt states family able to drive if needed. DME: Tub bench, walker, rollator, bedside commode. HHC/SNF: Denies Hx of SNF, previously used [facility] for C needs. Pt denies list of local [facility] agencies, would like to use [facility] again if able to accept pt. Pt states no further concerns/needs. CM to follow. Advised pt to ask CM if any further question/concerns/needs arise, voices understanding. Pt Goal: Home with Home Health Care. Plan: Home with HHC, follow plan of care. Shiva NICHOLAS CM
[2024-06-13] MEDS: traMADol 50 MG Tablet PO ×2 (10:29→22:05)
[2024-06-13] MEDS: Pantoprazole Sodium 40 MG Tablet PO (10:30)
[2024-06-13] MEDS: hydroCHLOROthiazide 25 MG Tablet PO (10:30)
[2024-06-13] MEDS: Cholecalciferol (Vit D3) 125 MCG CAPSULE (5,000 UNITS) PO (10:30)
[2024-06-13] MEDS: Sotalol Hydrochloride 80 MG Tablet 40 MG PO ×2 (10:30→22:06)
[2024-06-13] MEDS: 0.9% Saline Lock 10 ML Syringe IV (10:31)
[2024-06-13] MEDS: Losartan Potassium 25 MG Tablet PO (10:31)
[2024-06-13] MEDS: Senna/Docusate Sodium 1 Tablet 2 TABLET PO ×2 (10:31→22:06)
[2024-06-13] MEDS: Enoxaparin 40 MG/0.4 ML Syringe SC (10:31)
[2024-06-13] MEDS: Polyethylene Glycol 3350 17 GM PACKET PO (10:31)
[2024-06-13] MEDS: Ceftriaxone 1 GM/50 ML BAG IV (10:32)
[2024-06-13] MEDS: Atorvastatin Calcium 20 MG Tablet PO (10:41)
[2024-06-13 10:50] VITALS: BP 140/59; PULSE 62; RESP 18; TEMP 36.6; O2SAT 99
--- NOTE | 2024-06-13 10:51 | PN.HOSP_ITS ---
Reason for Visit Reason for Visit: Diagnoses Unspecified osteoarthritis, unspecified site (06/12/24) Urinary tract infection, site not specified (06/12/24) Unspecified abdominal pain (06/12/24) Other malaise (06/12/24) Subjective Subjective Saw patient at bedside this morning. Therapy was about to work with her when I saw her. Patient stated that she was feeling well earlier this morning and tolerated breakfast without issue, but she did have fairly significant pain in the lower abdomen and back with ambulating to the bathroom. She otherwise denied any new concerns today. Objective Data Objective Data Vital Signs: Vital Signs Temp Pulse Resp BP Pulse Ox O2 Del Method 97.9 F 62 18 140/59 H 99 Room Air 06/13/24 10:50 06/13/24 10:50 06/13/24 10:50 06/13/24 10:50 06/13/24 10:50 06/13/24 10:50 Oxygen Delivery Method Room Air Weight: 100.698 kg Body Mass Index (BMI) 35.8 Intake & Output: Intake and Output for Last 24 Hours 06/11/24 06/12/24 06/13/24 23:59 23:59 23:59 Intake Total 1350 / 1350 200 / 200 Balance 1350 / 1350 200 / 200 Lab / Micro Data 06/13/24 05:18 06/13/24 05:18 Labs: Laboratory Results - last 24 hr 06/12/24 13:30: WBC 8.0, RBC 4.84, Hgb 13.9, Hct 44.3, MCV 91.5, MCH 28.7, MCHC 31.4 L, RDW Std Deviation 47.4 H, RDW Coeff of Pat 14.1, Plt Count 268, MPV 9.3, Immature Gran % (Auto) 0.500, Neut % (Auto) 65.5, Lymph % (Auto) 24.2, [place] % (Auto) 6.9, Eos % (Auto) 2.1, Baso % (Auto) 0.8, Absolute Neuts (auto) 5.2, Absolute Lymphs (auto) 1.93, Nucleated RBC % 0, Sodium 139, Potassium 4.6, Chloride 104, Carbon Dioxide 29.0, Anion Gap 6, BUN 28 H, Creatinine 0.91, Est GFR (MDRD) Af Amer 78, Est GFR (MDRD) Non-Af 64, BUN/Creatinine Ratio 30.8 H, G lucose 112 H, Calcium 9.8, Total Bilirubin 0.70, AST 16, ALT 18, Alkaline Phosphatase 121 H, Total Protein 7.9, Albumin 4.0, Globulin 3.9, Albumin/Globulin Ratio 1.0, Lipase 59 06/12/24 14:37: Lactic Acid 0.8 06/12/24 15:24: Urine Color Yellow, Urine Clarity Sl. Cloudy, Urine pH 6.0, Ur Specific [place] 1.015, Urine Protein 15 H, Urine Glucose (UA) Normal, Urine Ketones Negative, Urine Occult Blood 10 H, Urine Nitrite Negative, Urine Bilirubin Negative, Urine Urobilinogen Normal, Ur Leukocyte Esterase 500 H, Urine RBC 0-5 SEEN, Urine WBC 0-5 SEEN, Ur Squamous Epith Cells 5-10 SEEN, Ur Transition Epith Cell 0-5 SEEN, Urine Bacteria 1+, Urine Mucus 1+ 06/13/24 05:18: WBC 6.6, RBC 4.22, Hgb 12.2, Hct 39.7, MCV 94.1, MCH 28.9, MCHC 30.7 L, RDW Std Deviation 49.3 H, RDW Coeff of Pat 14.2, Plt Count 199, MPV 9.1, Sodium 136, Potassium 3.9, Chloride 102, Carbon Dioxide 30.0, Anion Gap 4 L, BUN 23 H, Creatinine 0.75, Estim Creat Clear Calc 75.00, Est GFR (MDRD) Af Amer 98, Est GFR (MDRD) Non-Af 81, BUN/Creatinine Ratio 30.8 H, Glucose 118 H, Calcium 9.1 Micro: Microbiology 06/12/24 15:24 Urine, Clean Catch Urine Culture - Preliminary Mixed Gram Pos & Gram Neg Org Radiography Diagnostic Testing: Radiology Impression KUB X-Ray 06/12/24 18:45 IMPRESSION: Mild nonspecific ileus. Electronically Signed: Dick Mallory MD at 20:12 EDT , Physical Exam Const alert, oriented x3 and no apparent distress Constitutional Narrative: Elderly female, morbidly obese, energy improved, sitting up comfortably in bed, conversing normally, in no acute distress. General Appearance: cooperative and comfortable HEENT normocephalic, head/scalp atraumatic, hearing grossly normal bilaterally, nasal mucous membranes and turbinates normal and moist oral mucous membranes Eyes PERRL, EOMs intact bilaterally and conjunctivae normal Neck full ROM Chest inspection of chest normal Resp normal respiratory effort, normal air movement, no use of accessory muscles and clear to auscultation bilaterally Cardio regular rate, regular rhythm, no murmurs and peripheral pulses 2+ throughout GI GI Narrative: Very mild tenderness to palpation in left lower quadrant. Abdomen otherwise soft and nondistended with normal bowel sounds. Stable. Back/Spine normal ROM Extremity normal to inspection, full ROM and no pedal edema Skin no rashes or lesions noted Neuro moves all extremities and no focal motor deficits Speech: speech normal Psych mental status grossly normal Assessment & Plan Assessment/Plan (1) Debility: (2) Intractable abdominal pain: (3) Osteoarthritis: (4) Acute UTI: PLAN: Plan Patient is a 73-year-old female who presented [facility] ED on 06/12/2024 with worsening debility and chronic abdominal pain. 1. Acute on chronic debility ? PT/OT/case management following. Chronic debility is multifactorial from age, chronic hip and back pain and morbid obesity. Suspect acute worsening is due to reduced p.o. intake and reduced activity in setting of ongoing chronic abdominal pain as noted below. Had good therapy scores on 06/13 and ambulated 30 feet with her cane without issue. Planning for home with home health care on discharge. 2. Chronic abdominal pain, history of chronic back and hip pain s/p left total hip replacement ? Unclear etiology of abdominal pain. CT abdomen pelvis at outside hospital on 06/06 was not acute. Abdomen soft and nondistended with only mild tenderness in LLQ on this admission. Lab workup benign. Could possibly be due to UTI as noted below but more likely is due to referred pain from back and hip. Follows with outpatient pain management, will continue home regimen of Tylenol and tramadol every 6 hours as needed, and naproxen up to twice daily as needed. 3. Concern for UTI ? UA on admit showed 500 leukocyte esterase, negative nitrites, 1+ bacteria. Urine culture pending. Patient reports history of a few UTIs, none recently. No urine culture data available in our system. Will treat empirically with IV ceftriaxone for now. Will plan to narrow to p.o. antibiotics in preparation for discharge home tomorrow once final urine culture results are available. Chronic medical conditions: ? Morbid obesity: BMI around 40 on admit. Complicates hospital course, care and prognosis. ? Anxiety/depression: Stable. Continue home sertraline. ? Paroxysmal A-fib: Normal sinus rhythm on admit. Continue home sotalol. Not on anticoagulation for unclear reason. ? Hypertension: Mildly hypertensive on admit. Continue home losartan and hydrochlorothiazide. DVT prophylaxis: Lovenox CODE STATUS: Full code, verified Expected disposition: Home with home health care, 1 to 2 days Total clinical time spent by myself addressing the patient's medical issues, reviewing all the data, and collaborating with patient's care team: 35 minutes. Charges/Coding Visit Charges Inpatient E&M: 31824 Subs Hosp L2
--- NOTE | 2024-06-13 10:52 | CASEMGMT ---
Discharge Planning A list of?HH providers including quality and resource use data and consistent with the patient's preferred geographic region, medical needs, and insurance network was created in [employer] [facility].? This list was provided to the RN HARSHAD. Katelyn Rivas, Discharge Planning Asst.
--- NOTE | 2024-06-13 11:05 | CASEMGMT ---
Addendum entered by Katelyn Rivas 06/13/24 11:27: [facility] accepted. YU CM updated. Katelyn Rivas DC Planning Asst. Original Note: Discharge Planning [facility]. Katelyn Rivas DC Planning Asst.
[2024-06-13 15:26] VITALS: BP 147/64; PULSE 64; RESP 18; TEMP 37.1; O2SAT 98
[2024-06-13 21:00] VITALS: BP 131/55; PULSE 62; RESP 14; TEMP 36.5; O2SAT 94
[2024-06-13] MEDS: Sertraline 100 MG Tablet PO (22:08)
[2024-06-14 03:00] VITALS: BP 96/55; PULSE 62; RESP 14; TEMP 36.6; O2SAT 95
[2024-06-14 08:00] VITALS: BP 120/61; PULSE 60; RESP 16; TEMP 36.4; O2SAT 100
[2024-06-14] MEDS: Cholecalciferol (Vit D3) 125 MCG CAPSULE (5,000 UNITS) PO (08:09)
[2024-06-14] MEDS: Polyethylene Glycol 3350 17 GM PACKET PO (08:09)
[2024-06-14] MEDS: Senna/Docusate Sodium 1 Tablet 2 TABLET PO ×2 (08:09→21:10)
[2024-06-14] MEDS: Pantoprazole Sodium 40 MG Tablet PO (08:10)
[2024-06-14] MEDS: Losartan Potassium 25 MG Tablet PO (08:11)
[2024-06-14] MEDS: Atorvastatin Calcium 20 MG Tablet PO (08:11)
[2024-06-14] MEDS: hydroCHLOROthiazide 25 MG Tablet PO (08:11)
[2024-06-14] MEDS: Enoxaparin 40 MG/0.4 ML Syringe SC (08:14)
[2024-06-14] MEDS: Sotalol Hydrochloride 80 MG Tablet 40 MG PO ×2 (08:19→21:10)
[2024-06-14] MEDS: traMADol 50 MG Tablet PO ×2 (09:43→21:19)
[2024-06-14] MEDS: Acetaminophen 325 MG Tablet 650 MG PO ×2 (09:44→21:20)
[2024-06-14] MEDS: Ceftriaxone 1 GM/50 ML BAG IV (09:44)
[2024-06-14 10:03] VITALS: O2SAT 94
--- NOTE | 2024-06-14 11:06 | MRI_ITS ---
STUDY: MRI LUMBAR SPINE WITHOUT CONTRAST REASON FOR EXAM: Female, 73 years old. Worsening LBP w/ radiculopathy and debility TECHNIQUE: Standardized fat and water weighted pulse sequences were obtained in the sagittal and axial planes. Noncontrast images obtained. Contrast: No contrast administered COMPARISON: Prior comparison studies are not available for review at this time. FINDINGS: Vertebral bodies and alignment. 1. Vertebral body height is maintained throughout the lumbar spine, however there is a significant 30 degree dextroscoliotic curvature centered at L3. No evidence of fractures or acute destructive bony process. There is a RIGHT lateral subluxation of L3 on L4.. 2. There is a moderate rotary scoliosis. 3. Paraspinous soft tissue planes have normal appearance. Normal appearance of the muscular fascial planes of the erector spinae. 4. Normal appearance of the sacrum and sacroiliac joints. Intervertebral disks levels. T12-L1: Disc desiccation, broad-based disc protrusion with a small amount of extruded disc material migrating superiorly in the anterior epidural space at. No central canal stenosis or cord compression. Endplate: No focal endplate marrow changes or endplate deformity. L1-2: Mild disc desiccation, there is a broad-based disc bulge and a LEFT posterior lateral disc protrusion with extruded disc fragment deforming the LEFT lateral recess with potential nerve root impingement. There is mild foraminal narrowing. No evidence of cord compression or canal stenosis. Endplate: No focal endplate marrow changes or endplate deformity. L2-3: There is fusion of the LEFT side of the disc space at which appears chronic. There is broad-based disc bulge and osteophyte throughout the full extent of the disc. No canal stenosis however there is compromise the LEFT lateral recess and narrowing the LEFT neural foramen. Nerve root impingement within the LEFT lateral recess suspected. No evidence of acute disc herniation however. Endplate: Significant Modic type II fatty changes throughout the LEFT lateral aspect of the endplates. L3-4: Disc desiccation, broad-based disc protrusion and osteophyte complex with severe deformity of the spinal canal and central canal stenosis estimated at approximately 3 mm. Compression of nerve roots within the lateral recesses greater on the RIGHT than LEFT. Additional marked narrowing of the neural foramina are on the LEFT than RIGHT. There is a LEFT foraminal and LEFT lateral protrusion. Endplate: Significant Modic type II fatty marrow changes. No marrow edema. L4-5: Disc desiccation. Broad-based disc bulge without zena herniation. There is facet and ligamentum flavum hypertrophic change with crowding of nerve roots in both lateral recesses greater on the LEFT than RIGHT. No foraminal stenosis. Endplate: No focal endplate marrow changes or endplate deformity. L5-S1: Disc desiccation, broad-based disc bulge without disc herniation or canal stenosis. There is foraminal narrowing greater on the RIGHT than LEFT due to a RIGHT lateral foraminal bulge and osteophyte. Potential nerve root impingement within the RIGHT lateral recess and RIGHT neural foramen. Endplate: No focal endplate marrow changes or endplate deformity. Spinal cord: Normal appearance of the spinal cord and conus. Conus is located at L1. Cauda equina has normal appearance. No evidence of cord compression or edema. No intramedullary signal abnormality noted. Paraspinous soft tissues: Normal visualized paraspinous soft tissue structures. MRI/Spine Lumbar (Routine) IMPRESSION: 1. Dextroscoliotic curvature centered at L3 estimated at 30 degrees. No evidence of destructive marrow replacement process or occult fracture. 2. Extensive multilevel disc changes. 3. There is a broad-based chronic appearing protrusion osteophyte complex at L3-4 with associated severe canal stenosis and suspected nerve root impingement within the lateral recesses. There is a mild RIGHT lateral subluxation of L3 on L4. 4. Fusion of the LEFT side of the disc at L2-3. 5. Broad-based that disc protrusion at L1-2 with extruded disc fragment projecting within the LEFT lateral recess with compression of the nerve roots at, additional LEFT foraminal stenosis with nerve root impingement within the LEFT neural foramen. 6. Broad-based that disc bulge at L4-5, compromise of lateral recesses bilaterally due to disc bulge and facet and ligament flavum hypertrophic changes with crowding of nerve roots. 7. RIGHT foraminal and RIGHT lateral recess narrowing at L5-S1 with potential nerve root impingement. 8. No evidence of cord compression. Electronically Signed: Celestine Bustillos MD at 0:43 EDT ,
--- NOTE | 2024-06-14 11:28 | PCM.PN.HOSP ---
Reason for Visit Reason for Visit: Diagnoses Unspecified osteoarthritis, unspecified site (06/12/24) Urinary tract infection, site not specified (06/12/24) Unspecified abdominal pain (06/12/24) Other malaise (06/12/24) Subjective Subjective No acute events overnight. Saw patient at bedside this morning, significant other present. Patient continues to have lower abdominal pain and low back pain similar to previous days. Denies any UTI type symptoms. Notes that the pain and discomfort has been limiting her ability to work with therapy or do much. She and continue to be concerned about her going home with this pain. No other new concerns today. Completed further chart review in [facility] records this morning. Patient was seen by pain management at [facility] in late May. She had lumbar x-ray done at that time that showed severe degenerative changes. Pain management determined no injections were needed and continued her on the pain regimen she is currently on. Patient has never had MRI of the lumbar spine done. Given her worsening symptoms that are precluding her ability to do much and work with therapy, will obtain MRI lumbar spine today for further evaluation. Objective Data Objective Data Vital Signs: Vital Signs Temp Pulse Resp BP Pulse Ox O2 Del Method 97.6 F L 60 16 120/61 94 Room Air 06/14/24 08:00 06/14/24 08:00 06/14/24 08:00 06/14/24 08:00 06/14/24 10:03 06/14/24 10:03 Oxygen Delivery Method Room Air Weight: 100.698 kg Body Mass Index (BMI) 35.8 Intake & Output: Intake and Output for Last 24 Hours 06/12/24 06/13/24 06/14/24 23:59 23:59 23:59 Intake Total 1350 / 1350 250 / 350 250 / 250 Balance 1350 / 1350 250 / 350 250 / 250 Lab / Micro Data 06/13/24 05:18 06/13/24 05:18 Micro: Microbiology 06/12/24 15:24 Urine, Clean Catch Urine Culture - Final Mixed Gram Pos & Gram Neg Org Physical Exam Const alert, oriented x3 and no apparent distress Constitutional Narrative: Elderly female, morbidly obese, energy improved, sitting up comfortably in bed, conversing normally, in no acute distress. Stable. General Appearance: cooperative and comfortable HEENT normocephalic, head/scalp atraumatic, hearing grossly normal bilaterally, nasal mucous membranes and turbinates normal and moist oral mucous membranes Eyes PERRL, EOMs intact bilaterally and conjunctivae normal Neck full ROM Chest inspection of chest normal Resp normal respiratory effort, normal air movement, no use of accessory muscles and clear to auscultation bilaterally Cardio regular rate, regular rhythm, no murmurs and peripheral pulses 2+ throughout GI GI Narrative: Mild tenderness to palpation in left lower quadrant. Abdomen otherwise soft and nondistended with normal bowel sounds. Stable. Back/Spine Back/Spine Narrative: Decreased range of motion in the low back and down into the hips and upper legs. Stable. No tenderness to palpation. Extremity normal to inspection and no pedal edema Skin no rashes or lesions noted Neuro moves all extremities and no focal motor deficits Speech: speech normal Psych mental status grossly normal Assessment & Plan Assessment/Plan (1) Debility: (2) Intractable abdominal pain: (3) Osteoarthritis: (4) Acute UTI: PLAN: Plan Patient is a 73-year-old female who presented [facility] ED on 06/12/2024 with worsening debility and chronic abdominal and low back pain. 1. Acute on chronic debility ? PT/OT/case management following. Chronic debility is multifactorial from age, chronic hip and back pain and morbid obesity. Suspect acute worsening is due to reduced p.o. intake and reduced activity in setting of ongoing chronic abdominal pain as noted below. Had good therapy scores on 06/13 and ambulated 30 feet with her cane without issue. Planning for home with home health care on discharge. 2. Chronic abdominal pain, history of chronic low back and hip pain s/p left total hip replacement ? Suspect that patient's abdominal pain may be referred pain from worsening of her chronic low back pain. CT abdomen pelvis at outside hospital on 06/06 was not acute. Abdominal exam has been benign since admission. Lab workup benign. On review of [facility] records, had x-ray lumbar spine done recently that showed severe degenerative changes of the low back. Saw pain management in May who recommended continued medical therapy and no injections at that time. However, it appears her symptoms have been worsening since then. MRI lumbar spine ordered today. Will continue home pain regimen for now. Will likely need either orthopedic surgery and/or pain management consult once MRI results are available. 3. Concern for UTI ? UA on admit showed 500 leukocyte esterase, negative nitrites, 1+ bacteria. Urine culture with no significant growth. Patient reports history of a few UTIs, none recently. No urine culture data available in our system. Will treat empirically with 5-day course of antibiotics; continue IV ceftriaxone while inpatient and can narrow to p.o. Keflex on discharge. Chronic medical conditions: ? Morbid obesity: BMI around 40 on admit. Complicates hospital course, care and prognosis. ? Anxiety/depression: Stable. Continue home sertraline. ? Paroxysmal A-fib: Normal sinus rhythm on admit. Continue home sotalol. Not on anticoagulation for unclear reason. ? Hypertension: Mildly hypertensive on admit. Continue home losartan and hydrochlorothiazide. DVT prophylaxis: Lovenox CODE STATUS: Full code, verified Expected disposition: Home with home health care, 1 to 2 days Total clinical time spent by myself addressing the patient's medical issues, reviewing all the data, and collaborating with patient's care team: 35 minutes. Charges/Coding Visit Charges Inpatient E&M: 44998 Subs Hosp L2
--- NOTE | 2024-06-14 13:24 | CASEMGMT ---
Dr. Oden states that the pt is experiencing increased pain. The MD is opting to order an MRI of the lumbar spine. The MD reports that the pt will not be discharging today. Interim [facility] notified of the updated POC at this time via [employer]. TM.
[2024-06-14 14:00] VITALS: BP 122/52; PULSE 62; RESP 16; TEMP 37.1; O2SAT 99
[2024-06-14] MEDS: Naproxen 250 MG Tablet PO (14:14)
[2024-06-14] MEDS: Sertraline 100 MG Tablet PO (21:10)
[2024-06-14 21:31] VITALS: BP 123/56; PULSE 64; RESP 16; TEMP 36.6; O2SAT 97
[2024-06-15] MEDS: Acetaminophen 325 MG Tablet 650 MG PO ×2 (05:52→19:55)
[2024-06-15] MEDS: traMADol 50 MG Tablet PO ×2 (05:52→19:55)
[2024-06-15 05:55] VITALS: BP 126/61; PULSE 57; RESP 16; TEMP 36.5; O2SAT 99
[2024-06-15] MEDS: Pantoprazole Sodium 40 MG Tablet PO (07:52)
[2024-06-15] MEDS: Atorvastatin Calcium 20 MG Tablet PO (07:52)
[2024-06-15] MEDS: Sotalol Hydrochloride 80 MG Tablet 40 MG PO ×2 (07:52→19:56)
[2024-06-15] MEDS: Polyethylene Glycol 3350 17 GM PACKET PO (07:52)
[2024-06-15] MEDS: Cholecalciferol (Vit D3) 125 MCG CAPSULE (5,000 UNITS) PO (07:52)
[2024-06-15] MEDS: hydroCHLOROthiazide 25 MG Tablet PO (07:52)
[2024-06-15] MEDS: Enoxaparin 40 MG/0.4 ML Syringe SC (07:53)
[2024-06-15] MEDS: Senna/Docusate Sodium 1 Tablet 2 TABLET PO ×2 (07:53→19:56)
[2024-06-15] MEDS: Losartan Potassium 25 MG Tablet PO (07:53)
[2024-06-15 08:35] VITALS: BP 100/76; PULSE 62; RESP 16; TEMP 36.8; O2SAT 100
[2024-06-15] MEDS: Ceftriaxone 1 GM/50 ML BAG IV (09:43)
[2024-06-15 11:25] VITALS: BP 114/56; PULSE 62; RESP 16; TEMP 36.4; O2SAT 98
[2024-06-15] MEDS: Naproxen 250 MG Tablet PO (12:42)
--- NOTE | 2024-06-15 12:53 | CON.PCM.OR_ITS ---
HPI Consult Data Date of Consult: 06/15/24 HPI Narrative HPI Narrative: JOSAFAT CORDOBA, is a 73 F who presents with low back pain radiating to left flank and lower abdomen. She was admitted on Thursday. Patient underwent MRI and I was consulted today. I saw the patient in 303 today. Patient says that she has had on and off low back pain for many years. She found out about scoliosis about a year ago. About a month ago she started having severe pain in the lower back radiating towards the left flank region and then eventually going down to the left lower abdomen anteriorly as well. She denies any pain in the groin. She denies any right-sided pain. Her pain eventually got severe enough that she was not able to get around much even at home even with the help of a cane. Eventually she came into the hospital. Since being here in the hospital over the last 3 days she has improved to some extent with mobility and has walked a short distance with PT. She believes her pain is getting better with time. She denies any weakness but has severe pain with any mobility in the lower back. [facility] Medical History (Updated 06/15/24 @ 12:[address] Ta Cardenas MD) Atrial fibrillation Hypertension Loss of hearing Wears glasses Wears dentures Cancer Depression Scab Diabetes Ambulates with cane Bladder disease Anemia Back pain Migraine headache Injury of head and neck History of ulceration Shortness of breath on exertion Non-smoker Leg cramps History of pain when walking Normal Holter exam History of echocardiogram History of stress test Cardiology follow-up encounter HLD (hyperlipidemia) Rheumatoid arthritis First degree AV block Fibromyalgia TIA (transient ischemic attack) Essential hypertension Paroxysmal atrial fibrillation Infection of prosthetic left knee joint Home Medications ?Medication ?Instructions ?Recorded ?Last Taken ?Type hydrochlorothiazide 25 mg tablet 25 mg PO DAILY BP 06/22/19 06/12/24 History lutein 6 mg capsule 6 mg PO DAILY SUPPLEMENT 06/22/19 06/12/24 History acetaminophen 500 mg tablet 1,000 mg PO TID 10/17/22 06/12/24 History atorvastatin 20 mg tablet 20 mg PO QHS 10/17/22 06/12/24 History losartan 25 mg tablet 25 mg PO DAILY 10/17/22 06/12/24 History omega-3 fatty acids-fish oil 360 1 cap PO DAILY 10/17/22 Unknown History mg-1,200 mg capsule (Fish Oil) cyclobenzaprine 5 mg tablet 10 mg PO QHS PRN LEG CRAMPS 02/03/23 06/11/24 History cholecalciferol (vitamin D3) 125 125 mcg PO DAILY 06/25/23 06/11/24 History mcg (5,000 unit) tablet (Vitamin D3) lidocaine 4 % topical patch 1 patch topical DAILY PRN pain 06/25/23 06/12/24 History (Lidocare) sertraline 100 mg tablet 100 mg PO QHS 06/25/23 06/11/24 History vitamin A 2,400 mcg capsule 10,000 unit PO DAILY 06/25/23 06/12/24 History multivit with min-folic 1 tab PO DAILY 06/30/23 Unknown History acid-lutein 200 mcg-137.5 mcg chewable tablet (Adult Multivitamin (w-lutein)) sennosides 8.6 mg-docusate sodium 2 tab PO BID 3 days #12 tabs 07/16/23 06/08/24 Rx 50 mg tablet (Stool Softener-Stimulant Laxative) tramadol 50 mg tablet 50 - 100 mg (1 - 2 x 50 mg) PO Q6H 07/16/23 06/12/24 Rx PRN PRN Pain Score 4-10 #0 tabs sotalol 80 mg tablet (Sotalol AF) 40 mg (1/2 x 80 mg) PO BID #180 11/19/23 06/12/24 Rx tabs Allergy/AdvReac Type Severity Reaction Status Date / Time diazepam (From Valium) Allergy Other Verified 06/12/24 13:35 latex Allergy Rash Verified 06/12/24 13:35 lisinopril Allergy Anaphylaxis Verified 06/12/24 13:35 morphine Allergy Rash Verified 06/12/24 13:35 Family History Father CAD (coronary artery disease) Myocardial infarction, Onset Age: 55 Mother Hypertension CHF (congestive heart failure) Brother Myocardial infarction, Onset Age: 43 Sister CHF (congestive heart failure) Diabetes CKD (chronic kidney disease) Sister COPD (chronic obstructive pulmonary disease) Cancer Lung Sister Hypertension Cardiac pacemaker in situ Surgical History Hx of laparoscopy Hx of tubal ligation Hx of total hysterectomy Hx of right cataract extraction Hx of left cataract extraction History of left knee replacement History of rotator cuff surgery History of total right hip replacement Social History Smoking Status: Never smoker alcohol intake: never substance use type: does not use caffeine: Yes Type: carbonated beverages, coffee and tea Vital Signs Vital Signs Vital Signs: 06/14/24 14:00 06/14/24 14:00 06/14/24 21:31 Temperature 98.7 F 97.9 F Temperature Source Oral Oral Pulse Rate 62 62 64 Pulse Strength Respiratory Rate 16 16 16 Respiratory Effort Normal Respiratory Depth Normal Respiratory Pattern Normal Blood Pressure 122/52 H 123/56 H Blood Pressure Mean 75 78 Blood Pressure Source Monitor Blood Pressure Position Semi-Fowlers Blood Pressure Location Right Arm Pulse Ox 99 99 97 Oxygen Delivery Method Room Air Room Air Room Air 06/15/24 05:55 06/15/24 07:00 06/15/24 08:35 Temperature 97.7 F L Temperature Source Oral Pulse Rate 57 L Pulse Strength Normal (2+) Respiratory Rate 16 Respiratory Effort Respiratory Depth Respiratory Pattern Blood Pressure 126/61 H Blood Pressure Mean 82 Blood Pressure Source Monitor Blood Pressure Position Semi-Fowlers Blood Pressure Location Right Arm Pulse Ox 99 Oxygen Delivery Method Room Air Room Air 06/15/24 08:35 06/15/24 08:35 06/15/24 11:25 Temperature 98.2 F 97.5 F L Temperature Source Oral Oral Pulse Rate 62 62 Pulse Strength Respiratory Rate 16 16 Respiratory Effort Normal Respiratory Depth Normal Respiratory Pattern Normal Blood Pressure 100/76 114/56 L Blood Pressure Mean 84 75 Blood Pressure Source Monitor Monitor Blood Pressure Position Semi-Fowlers Semi-Fowlers Blood Pressure Location Right Arm Right Arm Pulse Ox 100 98 Oxygen Delivery Method Room Air Room Air Room Air Weight Weight: 222 lb Body Mass Index (BMI) 35.8 Physical Exam Narrative Examination the back shows left paraspinal tenderness in upper lumbar spine. Neurologic evaluation of lower extremity shows 5 x 5 power in all muscles except for left hip flexion which is 4+. Const alert and oriented x3 Lab / Micro Data 06/13/24 05:18 06/13/24 05:18 Imaging Radiology Impression Lumbar Spine MRI 06/14/24 11:06 IMPRESSION: 1. Dextroscoliotic curvature centered at L3 estimated at 30 degrees. No evidence of destructive marrow replacement process or occult fracture. 2. Extensive multilevel disc changes. 3. There is a broad-based chronic appearing protrusion osteophyte complex at L3-4 with associated severe canal stenosis and suspected nerve root impingement within the lateral recesses. There is a mild RIGHT lateral subluxation of L3 on L4. 4. Fusion of the LEFT side of the disc at L2-3. 5. Broad-based that disc protrusion at L1-2 with extruded disc fragment projecting within the LEFT lateral recess with compression of the nerve roots at, additional LEFT foraminal stenosis with nerve root impingement within the LEFT neural foramen. 6. Broad-based that disc bulge at L4-5, compromise of lateral recesses bilaterally due to disc bulge and facet and ligament flavum hypertrophic changes with crowding of nerve roots. 7. RIGHT foraminal and RIGHT lateral recess narrowing at L5-S1 with potential nerve root impingement. 8. No evidence of cord compression. 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 These show evidence of scoliosis likely degenerative. There is L2-3 autofusion. At L1-2 there is a left paracentral disc herniation with slight superior migration into the left L1-2 foramen. I explained to her the imaging findings in detail. She has a disc herniation at L1-2 which is causing radiculopathy around the possibly left L1 dermatome. I explained to her the natural history of lumbar disc herniations which often improve with nonsurgical treatment with physical therapy and epidural injections. Patient has only minimal weakness in iliopsoas at this point. She may benefit from oral or injectable steroids through pain management. If after trying an epidural injection, if she continues to have difficulty mobility and pain, she may consider surgical intervention which will be likely decompression fusion at L1-2. Patient may follow-up with me in 1 to 2 weeks after an epidural injection to see how it helps. Patient was in agreement. Charges/Coding Visit Charges Inpatient E&M: 31264 Init Hosp L3
--- NOTE | 2024-06-15 12:56 | PCM.PN.HOSP ---
Reason for Visit Reason for Visit: Diagnoses Unspecified osteoarthritis, unspecified site (06/12/24) Urinary tract infection, site not specified (06/12/24) Unspecified abdominal pain (06/12/24) Other malaise (06/12/24) Subjective Subjective Saw patient at bedside this morning. Patient stated this morning that she mildly improved today compared to previous days. She was able to ambulate to the bathroom and back to bed without significant pain in her abdomen or back. She does state the pain has moved up slightly higher in her abdomen and she does think the pain is referred from her back. She otherwise denied any new concerns today. Objective Data Objective Data Vital Signs: Vital Signs Temp Pulse Resp BP Pulse Ox O2 Del Method 97.5 F L 62 16 114/56 L 98 Room Air 06/15/24 11:25 06/15/24 11:25 06/15/24 11:25 06/15/24 11:25 06/15/24 11:25 06/15/24 11:25 Oxygen Delivery Method Room Air Weight: 100.698 kg Body Mass Index (BMI) 35.8 Intake & Output: Intake and Output for Last 24 Hours 06/13/24 06/14/24 06/15/24 23:59 23:59 23:59 Intake Total 250 / 350 600 / 600 300 / 300 Balance 250 / 350 600 / 600 300 / 300 Lab / Micro Data 06/13/24 05:18 06/13/24 05:18 Micro: Microbiology 06/12/24 15:24 Urine, Clean Catch Urine Culture - Final Mixed Gram Pos & Gram Neg Org Radiography Diagnostic Testing: Radiology Impression Lumbar Spine MRI 06/14/24 11:06 IMPRESSION: 1. Dextroscoliotic curvature centered at L3 estimated at 30 degrees. No evidence of destructive marrow replacement process or occult fracture. 2. Extensive multilevel disc changes. 3. There is a broad-based chronic appearing protrusion osteophyte complex at L3-4 with associated severe canal stenosis and suspected nerve root impingement within the lateral recesses. There is a mild RIGHT lateral subluxation of L3 on L4. 4. Fusion of the LEFT side of the disc at L2-3. 5. Broad-based that disc protrusion at L1-2 with extruded disc fragment projecting within the LEFT lateral recess with compression of the nerve roots at, additional LEFT foraminal stenosis with nerve root impingement within the LEFT neural foramen. 6. Broad-based that disc bulge at L4-5, compromise of lateral recesses bilaterally due to disc bulge and facet and ligament flavum hypertrophic changes with crowding of nerve roots. 7. RIGHT foraminal and RIGHT lateral recess narrowing at L5-S1 with potential nerve root impingement. 8. No evidence of cord compression. Electronically Signed: Celestine Bustillos MD at 0:43 EDT , Physical Exam Const alert, oriented x3 and no apparent distress Constitutional Narrative: Elderly female, morbidly obese, energy improved, sitting up comfortably in bed, conversing normally, in no acute distress. Stable. General Appearance: cooperative and comfortable HEENT normocephalic, head/scalp atraumatic, hearing grossly normal bilaterally, nasal mucous membranes and turbinates normal and moist oral mucous membranes Eyes PERRL, EOMs intact bilaterally and conjunctivae normal Neck full ROM Chest inspection of chest normal Resp normal respiratory effort, normal air movement, no use of accessory muscles and clear to auscultation bilaterally Cardio regular rate, regular rhythm, no murmurs and peripheral pulses 2+ throughout GI GI Narrative: Mild tenderness to palpation in left lower quadrant. Abdomen otherwise soft and nondistended with normal bowel sounds. Stable. Back/Spine Back/Spine Narrative: Decreased range of motion in the low back and down into the hips and upper legs. Stable. No tenderness to palpation. Extremity normal to inspection and no pedal edema Skin no rashes or lesions noted Neuro moves all extremities and no focal motor deficits Speech: speech normal Psych mental status grossly normal Assessment & Plan Assessment/Plan (1) Debility: (2) Intractable abdominal pain: (3) Osteoarthritis: (4) Acute UTI: PLAN: Plan Patient is a 73-year-old female who presented [facility] ED on 06/12/2024 with worsening debility and chronic abdominal and low back pain. 1. Acute on chronic debility ? PT/OT/case management following. Chronic debility is multifactorial from age, chronic hip and back pain and morbid obesity. Suspect acute worsening is due to reduced p.o. intake and reduced activity in setting of ongoing chronic abdominal pain as noted below. Had has a good therapy scores. Planning for home with home health care on discharge. 2. Chronic abdominal pain, history of chronic low back and hip pain s/p left total hip replacement ? Orthopedic surgery and pain management evaluated. Suspect that patient's abdominal pain is referred pain from worsening of her chronic low back pain. CT abdomen pelvis at outside hospital on 06/06 was not acute. Abdominal exam has been benign since admission. Lab workup benign. Had lumbar spine x-ray done at outside hospital in May that showed severe degenerative changes of the low back. MRI lumbar spine on 06/14 showed a disc herniation at L1-2 causing radiculopathy around the left L1 dermatome. Per orthopedics, no surgical intervention needed at this time, recommended therapy and pain injections. Pain management planning for left L1-2 steroid injection on 06/16. If patient tolerates this well, should be okay for discharge home later on 06/16. Continue current pain regimen. 3. Concern for UTI ? UA on admit showed 500 leukocyte esterase, negative nitrites, 1+ bacteria. Urine culture with no significant growth. Patient reports history of a few UTIs, none recently. No urine culture data available in our system. Will treat empirically with 5-day course of antibiotics; continue IV ceftriaxone while inpatient and can narrow to p.o. Keflex on discharge. Chronic medical conditions: ? Morbid obesity: BMI around 40 on admit. Complicates hospital course, care and prognosis. ? Anxiety/depression: Stable. Continue home sertraline. ? Paroxysmal A-fib: Normal sinus rhythm on admit. Continue home sotalol. Not on anticoagulation for unclear reason. ? Hypertension: Mildly hypertensive on admit. Continue home losartan and hydrochlorothiazide. DVT prophylaxis: Lovenox CODE STATUS: Full code, verified Expected disposition: Home with home health care, 1 to 2 days Total clinical time spent by myself addressing the patient's medical issues, reviewing all the data, and collaborating with patient's care team: 35 minutes. Charges/Coding Visit Charges Inpatient E&M: 56486 Subs Hosp L2
--- NOTE | 2024-06-15 14:23 | CON.PCM_ITS ---
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 Also some evidence of autofusion of L2-L3. Dr. Cardenas evaluated and recommended trying conservative therapy and epidural injections. Given the severity of her symptoms, I will plan for left L1-L2 TFESI. Hold prophylactic lovenox for 12 hours prior to injection. Continue PT. On tramadol, flexeril and tylenol. HPI Consult Data Date of Consult: 06/15/24 HPI Narrative Reason for Consultation: Back pain HPI Narrative: JOSAFAT CORDOBA, is a 73 F who presents with low back pain radiating to the left groin. She has pmh of bilateral hip replacements and scoliosis. She was admitted on Thursday. Dr. Cardenas has evaluated the patient and diagnosed her with disc herniation and lumbar radiculopathy along with lumbar spondylosis. MRI supports this possible diagnosis. The back pain started years ago, but worsened in the past month significantly. It radiates around to the left groin. It is worsened with walking, standing. It is severe and sharp in nature. Her pain eventually got severe enough that she was not able to get around much even at home even with the help of a cane. She has started PT here. She has been taking tramadol for OA pain she says with good pain improvement. She also takes tylenol and muscle relaxant. She sees Dr. Ferrari at [facility] for pain management. [facility] Medical History (Updated 06/15/24 @ 12:[address] Ta Cardenas MD) Atrial fibrillation Hypertension Loss of hearing Wears glasses Wears dentures Cancer Depression Scab Diabetes Ambulates with cane Bladder disease Anemia Back pain Migraine headache Injury of head and neck History of ulceration Shortness of breath on exertion Non-smoker Leg cramps History of pain when walking Normal Holter exam History of echocardiogram History of stress test Cardiology follow-up encounter HLD (hyperlipidemia) Rheumatoid arthritis First degree AV block Fibromyalgia TIA (transient ischemic attack) Essential hypertension Paroxysmal atrial fibrillation Infection of prosthetic left knee joint Home Medications ?Medication ?Instructions ?Recorded ?Last Taken ?Type hydrochlorothiazide 25 mg tablet 25 mg PO DAILY BP 06/22/19 06/12/24 History lutein 6 mg capsule 6 mg PO DAILY SUPPLEMENT 06/22/19 06/12/24 History acetaminophen 500 mg tablet 1,000 mg PO TID 10/17/22 06/12/24 History atorvastatin 20 mg tablet 20 mg PO QHS 10/17/22 06/12/24 History losartan 25 mg tablet 25 mg PO DAILY 10/17/22 06/12/24 History omega-3 fatty acids-fish oil 360 1 cap PO DAILY 10/17/22 Unknown History mg-1,200 mg capsule (Fish Oil) cyclobenzaprine 5 mg tablet 10 mg PO QHS PRN LEG CRAMPS 02/03/23 06/11/24 History cholecalciferol (vitamin D3) 125 125 mcg PO DAILY 06/25/23 06/11/24 History mcg (5,000 unit) tablet (Vitamin D3) lidocaine 4 % topical patch 1 patch topical DAILY PRN pain 06/25/23 06/12/24 History (Lidocare) sertraline 100 mg tablet 100 mg PO QHS 06/25/23 06/11/24 History vitamin A 2,400 mcg capsule 10,000 unit PO DAILY 06/25/23 06/12/24 History multivit with min-folic 1 tab PO DAILY 06/30/23 Unknown History acid-lutein 200 mcg-137.5 mcg chewable tablet (Adult Multivitamin (w-lutein)) sennosides 8.6 mg-docusate sodium 2 tab PO BID 3 days #12 tabs 07/16/23 06/08/24 Rx 50 mg tablet (Stool Softener-Stimulant Laxative) tramadol 50 mg tablet 50 - 100 mg (1 - 2 x 50 mg) PO Q6H 07/16/23 06/12/24 Rx PRN PRN Pain Score 4-10 #0 tabs sotalol 80 mg tablet (Sotalol AF) 40 mg (1/2 x 80 mg) PO BID #180 11/19/23 06/12/24 Rx tabs Allergy/AdvReac Type Severity Reaction Status Date / Time diazepam (From Valium) Allergy Other Verified 06/12/24 13:35 latex Allergy Rash Verified 06/12/24 13:35 lisinopril Allergy Anaphylaxis Verified 06/12/24 13:35 morphine Allergy Rash Verified 06/12/24 13:35 Family History Father CAD (coronary artery disease) Myocardial infarction, Onset Age: 55 Mother Hypertension CHF (congestive heart failure) Brother Myocardial infarction, Onset Age: 43 Sister CHF (congestive heart failure) Diabetes CKD (chronic kidney disease) Sister COPD (chronic obstructive pulmonary disease) Cancer Lung Sister Hypertension Cardiac pacemaker in situ Surgical History Hx of laparoscopy Hx of tubal ligation Hx of total hysterectomy Hx of right cataract extraction Hx of left cataract extraction History of left knee replacement History of rotator cuff surgery History of total right hip replacement Social History Smoking Status: Never smoker alcohol intake: never substance use type: does not use caffeine: Yes Type: carbonated beverages, coffee and tea ROS Constitutional Constitutional: Reports fatigue and weakness; Denies chills or fever(s) Eyes Eyes: Denies change in vision Cardiovascular Cardiovascular: Denies chest pain Respiratory/Chest Respiratory/Chest: Denies shortness of breath at rest Gastrointestinal Gastrointestinal: Reports abdominal pain; Denies constipation, diarrhea, nausea or vomiting Genitourinary Genitourinary: Denies difficulty urinating, dysuria, hematuria or urinary frequency Musculoskeletal Musculoskeletal: Reports arthralgias and back pain; Denies myalgias Neurologic Neurologic: Denies dizziness, focal weakness or headache(s) Physical Exam Narrative Examination the back shows left paraspinal tenderness in upper lumbar spine and left si tenderness. Negative hip provocative maneuvers. Negative SI provocative maneuvers. Some decreased sensation feet. Neurologic evaluation of lower extremity shows 5 x 5 power in all muscles, 4+ left hip flexion. SLR negative bilateral. Const alert and oriented x3 Lab / Micro Data 06/13/24 05:18 06/13/24 05:18 Imaging Radiology Impression Lumbar Spine MRI 06/14/24 11:06 IMPRESSION: 1. Dextroscoliotic curvature centered at L3 estimated at 30 degrees. No evidence of destructive marrow replacement process or occult fracture. 2. Extensive multilevel disc changes. 3. There is a broad-based chronic appearing protrusion osteophyte complex at L3-4 with associated severe canal stenosis and suspected nerve root impingement within the lateral recesses. There is a mild RIGHT lateral subluxation of L3 on L4. 4. Fusion of the LEFT side of the disc at L2-3. 5. Broad-based that disc protrusion at L1-2 with extruded disc fragment projecting within the LEFT lateral recess with compression of the nerve roots at, additional LEFT foraminal stenosis with nerve root impingement within the LEFT neural foramen. 6. Broad-based that disc bulge at L4-5, compromise of lateral recesses bilaterally due to disc bulge and facet and ligament flavum hypertrophic changes with crowding of nerve roots. 7. RIGHT foraminal and RIGHT lateral recess narrowing at L5-S1 with potential nerve root impingement. 8. No evidence of cord compression. Electronically Signed: Celestine Bustillos MD at 0:43 EDT ,
[2024-06-15 15:39] VITALS: BP 121/70; PULSE 64; RESP 16; TEMP 36.5; O2SAT 97
--- NOTE | 2024-06-15 16:07 | CASEMGMT ---
YU PATRICIA NOTE: Message sent to [facility], notifying them pt is not discharging home today. Omar ADAMSON RN CM
[2024-06-15 19:40] VITALS: BMI 35.8
[2024-06-15] MEDS: cycloBENZAPRine HCl 10 MG Tablet PO (19:55)
[2024-06-15] MEDS: Sertraline 100 MG Tablet PO (19:56)
[2024-06-15 20:48] VITALS: BP 113/56; PULSE 65; RESP 16; TEMP 36.4; O2SAT 99
[2024-06-16] VITALS (9 sets, daily range): BP systolic 101–166; BP diastolic 49–97; PULSE 62–94; RESP 16–18; TEMP 36.1–37.2; O2SAT 98–100; BMI 35.8
[2024-06-16 06:38] LABS: Absolute Lymphocyte Count 1.36 X10^3/uL (0.83-4.51); Absolute Neutrophil Count 2.6 X10^3/uL (2.0-7.7); Basophil# 0.03 X10^3/uL; Basophil% 0.6 % (0-1); Eosinophil# 0.18 X10^3/uL; Eosinophils% 3.9 % (0-5); Hematocrit 38.7 % (37-47); Hemoglobin 12.1 g/dL (12.0-15.0); Lymphocyte # 1.36 X10^3/ul (0.83-4.51); Lymphocyte % 29.2 % (19-41); Mean Corp Hgb Conc 31.3 g/dL (32-36); Mean Corpuscular Hgb 29.2 pg (27.0-32.0); Mean Corpuscular Volume 93.3 fL (81-99); Mean Platelet Vol. 9.1 fl (6.2-12.0); Monocyte# 0.45 X10^3/uL; Monocyte% 9.7 % (0-10); NRBC Flagged by Analyzer 0 % (0-5); Platelet Count 167 K/mm3 (150-450); Red Blood Count 4.15 M/mm3 (4.2-5.4); White Blood Count 4.7 K/mm3 (4.4-11.0)
[2024-06-16 07:35] LABS: Anion Gap 6 (5-15); BUN 24 mg/dL (7-18); BUN/Creat Ratio 29.7 RATIO (10-20); Calcium,Total 9.8 mg/dL (8.5-10.1); Chloride 103 mmol/L (98-107); Creatinine, Serum 0.81 mg/dL (0.55-1.02); EST Glomerular Filtration Rate 74 mL/min (>60); Est Glom Filt Rate - Afr Amer 89 mL/min (>60); Estimated Creatinine Clearance 74.08 ml/min; Glucose 111 mg/dL (74-106); Potassium 3.9 mmol/L (3.5-5.1); Sodium Level 139 mmol/L (136-145)
[2024-06-16] MEDS: Ceftriaxone 1 GM/50 ML BAG IV (10:32)
[2024-06-16] MEDS: 0.9% Saline Lock 10 ML Syringe IV (10:33)
[2024-06-16] MEDS: Sotalol Hydrochloride 80 MG Tablet 40 MG PO (11:34)
[2024-06-16] MEDS: Lactated Ringers 1,000 ML 15 ML IV (13:20)
--- NOTE | 2024-06-16 13:38 | PCM.PRE.AN2 ---
ASA Classification* ASA Classification ASA Classification: 3 Assessment & Plan Anesthesia* Anesthesia Assessment Anesthesia Assessment: Discussed sedation and/or anesthesia options, risks, benefits, and alternatives with patient/parents/legal guardian/POA. Questions invited. The patient/parents/legal guardian/POA seems to understand and agrees to proceed with anesthesia plan. Reviewed the physical assessment, medical history, allergy history and patient home medications list prior to surgery/procedure/anesthetic and documented any changes. Performed airway and anesthesia risk assessments. 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 This limits her range of motion.) Pertinent Findings EKG Pertinent Findings:: June 16, 2024. Sinus bradycardia at 59 bpm. Inferior infarct Focused Labs Anesthesia Preop lab: CBC WBC 4.7 K/mm3 (4.4-11.0) 06/16/24 06:03 RBC 4.15 M/mm3 (4.2-5.4) L 06/16/24 06:03 Hgb 12.1 g/dL (12.0-15.0) 06/16/24 06:03 Hct 38.7 % (37-47) 06/16/24 06:03 Plt Count 167 K/mm3 (150-450) 06/16/24 06:03 CHEMISTRY Potassium 3.9 mmol/L (3.5-5.1) 06/16/24 06:03 Sodium 139 mmol/L (136-145) 06/16/24 06:03 Magnesium 1.9 mg/dL (1.6-2.6) 06/22/23 12:59 BUN 24 mg/dL (7-18) H 06/16/24 06:03 Creatinine 0.81 mg/dL (0.55-1.02) 06/16/24 06:03 Glucose 111 mg/dL (74-106) H 06/16/24 06:03 POC Glucose 104 mg/dL (74-106) 07/15/23 07:08 TSH 1.92 uIU/mL (0.358-3.74) 05/21/22 14:34 COAG PT 14.2 SECONDS (11.7-14.9) 07/06/19 12:00 Pre-Assessment Diagnosis/Proposed Procedure Planned Operative Procedure(s): Left-sided transforaminal injection at lumbar 1 and 2. Anesthesia History Anesthesia History - funeral professional: Anesthesia History - funeral professional Hx Hospitalization No 06/25/23 14:11 Any Problems With Anesthesia Yes: CANT HAVE VALIUM TYPE MEDS 06/15/24 19:40 DIFFICULTY WITH SPINAL DUE TO SCAR TISSUE Patient had unsuccessful spinal attempts for her hip replacement last year and had to have a general anesthetic. Cholinesterase deficiency No 06/15/24 19:40 You/Your Family Experience No 06/15/24 19:40 fever (hyperthermia) with Relationship Recent Exposure to Contagious No 06/15/24 19:40 Disease Does patient have nerve No 06/15/24 19:40 stimulator Patient instructed to have device shut off --Does patient have Pacemaker No 06/16/24 11:51 or ICD? When Was Last Pacemaker Check QUESTION #4 FULL TEXT: You/Your Family Experience fever (hyperthermia) with Anesthesia Last Oral Intake Last Oral intake: Last Oral Intake NPO since 00:00 06/16/24 11:51 Meds taken in AM with sips of Yes 06/16/24 11:51 water? Meds patient instructed to take am of surgery PONV PONV - funeral professional: PONV - funeral professional Female HX of Motion Sickness HX of N/V After Surgery Non-Smoker Duration of Surgery greater than 60 minutes Number of Risk Factors PONV Score Height & Weight Height & Weight: Anesthesia: Height & Weight Height 5 ft 6 in 06/16/24 11:51 Weight: 100.698 kg 06/16/24 11:51 Body Mass Index (BMI) 35.8 06/16/24 11:51 Respiratory Assessment Respiratory Assessment - funeral professional: Respiratory Tract Infection Hx - funeral professional Hx Respiratory Tract Infection No 06/15/24 19:40 STOP Sleep Apnea STOP Sleep Apnea - funeral professional: STOP Sleep Apnea - funeral professional Hx Hypertension Yes 06/13/24 10:56 Hx Sleep Apnea No 06/12/24 18:00 CPAP BIPAP Do you snore loudly (louder Yes 06/12/24 18:00 than talking or can be heard Do you often feel tired/ No 06/12/24 18:00 fatigued/ sleepy during daytime? Has anyone observed you stop No 06/12/24 18:00 breathing during sleep? STOP Results Positive 06/12/24 18:00 QUESTION #5 FULL TEXT : Do you snore loudly (louder than talking or can be heard through closed doors)? Tobacco Use History Tobacco Use History - funeral professional: Tobacco Use History - funeral professional Tobacco Use Smoking Status Never smoker 06/12/24 18:00 Hx Tobacco Use No 06/12/24 18:00 Years Smoking Packs Smoked per Day Smoking Cessation Date was within the last 15 years Hx Smoking Cessation Date Hx Smoking Cessation Counseling Hematologic Medial History Hematologic Hx - funeral professional: Hematologic Medical Hx - provider service representative Hx of Blood Transfusion Yes 06/12/24 18:00 Hx of Transfusion in last 3 No 06/12/24 18:00 Months Date of Last Transfusion (if within last 3 months) Ever experience any problems No 06/12/24 18:00 with transfusion(s)? Specify any problems Hx of Preganancy in last 3 No 06/12/24 18:00 Months Nurse Filling Out Transfusion [id number] 06/12/24 18:00 & Questions: Date: 06/12/24 06/12/24 18:00 Time: 18:02 06/12/24 18:00 Patient unable to answer at this time (ie. confused, unrespo /Reproduction History /Reproductive History - funeral professional: /Reproductive Hx- funeral professional Hx Now No 06/15/24 19:40 Gestational Age (in weeks): EDC: Hx Hx Para Hx Section SAB No 06/25/23 14:11 Active Medications Active Medications: Current Medications Generic Name Dose Route Start Last Admin Trade Name Freq PRN Reason Stop Dose Admin Acetaminophen 650 mg 06/12/24 17:58 06/15/24 19:55 Acetaminophen 325 Mg Tablet PO 650 mg Q6H PRN PRN Administration Pain 1-10 or Fever Atorvastatin Calcium 20 mg 06/13/24 10:00 06/16/24 11:04 Atorvastatin Calcium 20 Mg Tablet PO Not Given DAILY [facility] Cholecalciferol 125 mcg 06/13/24 10:00 06/16/24 11:05 Cholecalciferol (Vit D3) 125 Mcg Capsule (5,000 Units) PO Not Given DAILY [facility]ON Cyclobenzaprine HCl 10 mg 06/12/24 17:58 06/15/24 19:55 Cyclobenzaprine Hcl 10 Mg Tablet PO 10 mg QHS PRN Administration LEG CRAMPS Enoxaparin Sodium 40 mg 06/17/24 10:00 Enoxaparin 40 Mg/0.4 Ml Syringe SC DAILY [facility] Hydrochlorothiazide 25 mg 06/13/24 10:00 06/16/24 11:04 Hydrochlorothiazide 25 Mg Tablet PO Not Given DAILY [facility] Protocol Sodium Chloride 250 mls @ 15 mls/hr 06/12/24 18:09 IV .[id number] PRN Saline Flush Sodium Chloride 250 mls @ 15 mls/hr 06/12/24 18:09 IV .[id number] PRN Additional IVPB Infusion Ceftriaxone Sodium 1 gm in 50 mls @ 100 mls/hr 06/12/24 18:25 06/16/24 11:05 Rocephin IV Infused Q24 DEVON Infusion Lactated Ringer's 1,000 mls @ 15 mls/hr 06/16/24 13:30 06/16/24 13:20 IV 15 mls/hr .Q48H DEVON Administration Losartan Potassium 25 mg 06/13/24 10:00 06/16/24 11:04 Losartan Potassium 25 Mg Tablet PO Not Given DAILY [facility] Protocol Melatonin 3 mg 06/12/24 17:58 Melatonin 3 Mg Tablet PO QHS PRN PRN INSOMNIA Naproxen 250 mg 06/12/24 18:03 06/15/24 12:42 Naproxen 250 Mg Tablet PO 250 mg BID PRN PRN Administration Pain Score 4-10 Ondansetron HCl 8 mg 06/12/24 17:58 Ondansetron 8 Mg Tablet PO Q8H PRN PRN NAUSEA/VOMITING Pantoprazole Sodium 40 mg 06/13/24 10:00 06/16/24 11:05 Pantoprazole Sodium 40 Mg Tablet PO Not Given DAILY [facility] Polyethylene Glycol 17 gm 06/13/24 10:00 06/16/24 11:05 Polyethylene Glycol 3350 17 Gm Packet PO Not Given DAILY [facility] Senna/Docusate Sodium 2 tablet 06/12/24 22:00 06/16/24 11:05 Senna/Docusate Sodium 1 Tablet PO Not Given BID [facility] Sertraline HCl 100 mg 06/12/24 22:00 06/15/24 19:56 Sertraline 100 Mg Tablet PO 100 mg QHS DEVON Administration Sodium Chloride 10 - 40 ml 06/12/24 18:09 06/16/24 10:33 0.9% Saline Lock 10 Ml Syringe IV 10 ml UD PRN Administration SALINE FLUSH Sotalol HCl 40 mg 06/12/24 22:00 06/16/24 11:34 Sotalol Hydrochloride 80 Mg Tablet PO 40 mg BID DEVON Administration Protocol Tramadol HCl 50 mg 06/12/24 18:03 06/15/24 19:55 Tramadol 50 Mg Tablet PO 50 mg Q6H PRN PRN Administration Pain Score 6-10 PFSH Medical History Scarlet fever Atrial fibrillation Hypertension Loss of hearing Wears glasses Wears dentures Cancer Depression Scab Diabetes Ambulates with cane Bladder disease Anemia Back pain Migraine headache Injury of head and neck History of ulceration Shortness of breath on exertion Non-smoker Leg cramps History of pain when walking Normal Holter exam History of echocardiogram History of stress test Cardiology follow-up encounter HLD (hyperlipidemia) Rheumatoid arthritis First degree AV block Fibromyalgia TIA (transient ischemic attack) Essential hypertension Paroxysmal atrial fibrillation Infection of prosthetic left knee joint Home Medications ?Medication ?Instructions ?Recorded ?Last Taken ?Type hydrochlorothiazide 25 mg tablet 25 mg PO DAILY BP 06/22/19 06/12/24 History lutein 6 mg capsule 6 mg PO DAILY SUPPLEMENT 06/22/19 06/12/24 History acetaminophen 500 mg tablet 1,000 mg PO TID 10/17/22 06/12/24 History atorvastatin 20 mg tablet 20 mg PO QHS 10/17/22 06/12/24 History losartan 25 mg tablet 25 mg PO DAILY 10/17/22 06/12/24 History omega-3 fatty acids-fish oil 360 1 cap PO DAILY 10/17/22 Unknown History mg-1,200 mg capsule (Fish Oil) cyclobenzaprine 5 mg tablet 10 mg PO QHS PRN LEG CRAMPS 02/03/23 06/11/24 History cholecalciferol (vitamin D3) 125 125 mcg PO DAILY 06/25/23 06/11/24 History mcg (5,000 unit) tablet (Vitamin D3) lidocaine 4 % topical patch 1 patch topical DAILY PRN pain 06/25/23 06/12/24 History (Lidocare) sertraline 100 mg tablet 100 mg PO QHS 06/25/23 06/11/24 History vitamin A 2,400 mcg capsule 10,000 unit PO DAILY 06/25/23 06/12/24 History multivit with min-folic 1 tab PO DAILY 06/30/23 Unknown History acid-lutein 200 mcg-137.5 mcg chewable tablet (Adult Multivitamin (w-lutein)) sennosides 8.6 mg-docusate sodium 2 tab PO BID 3 days #12 tabs 07/16/23 06/08/24 Rx 50 mg tablet (Stool Softener-Stimulant Laxative) tramadol 50 mg tablet 50 - 100 mg (1 - 2 x 50 mg) PO Q6H 07/16/23 06/12/24 Rx PRN PRN Pain Score 4-10 #0 tabs sotalol 80 mg tablet (Sotalol AF) 40 mg (1/2 x 80 mg) PO BID #180 11/19/23 06/16/24 Rx tabs Allergy/AdvReac Type Severity Reaction Status Date / Time diazepam (From Valium) Allergy Other Verified 06/12/24 13:35 latex Allergy Rash Verified 06/12/24 13:35 lisinopril Allergy Anaphylaxis Verified 06/12/24 13:35 morphine Allergy Rash Verified 06/12/24 13:35 Family History Father CAD (coronary artery disease) Myocardial infarction, Onset Age: 55 Mother Hypertension CHF (congestive heart failure) Brother Myocardial infarction, Onset Age: 43 Sister CHF (congestive heart failure) Diabetes CKD (chronic kidney disease) Sister COPD (chronic obstructive pulmonary disease) Cancer Lung Sister Hypertension Cardiac pacemaker in situ Surgical History S/P hysterectomy Hx of laparoscopy Hx of tubal ligation Hx of total hysterectomy Hx of right cataract extraction Hx of left cataract extraction History of left knee replacement History of rotator cuff surgery History of total right hip replacement Social History Smoking Status: Never smoker alcohol intake: never substance use type: does not use caffeine: Yes Type: carbonated beverages, coffee and tea Review of Systems (Anesthesia) ROS Narrative System reviewed and no additional complaints, except as documented.
--- NOTE | 2024-06-16 14:25 | RAD_ITS ---
PROCEDURE: Left L1-L2 transforaminal block. DATE OF EXAMINATION: June 16, 2024. INDICATION: Female, 73 years old. Back pain. FLUOROSCOPY TIME (if supplied): (39.3 seconds) minutes/seconds. 40.62 mGy. One image was submitted. RAD/Spine 1 View Any Level IMPRESSION: Fluoroscopic services provided for left L1-L2 transforaminal block. Electronically Signed: Lul Pabon MD at 8:14 EDT ,
[2024-06-16] MEDS: Lidocaine 1% (5 ml sdv) 5 ML Vial (14:33)
[2024-06-16] MEDS: Triamcinolone Acetonide 40 MG/ML Vial (14:36)
--- NOTE | 2024-06-16 15:15 | PCM.POSTANE2 ---
Anesthesia Postop Eval I Sum Anesthesia Postop Eval I Summary Anesthesia Postop Eval I Summary: Anesthesia Postop Eval I: Assessment Summary Airway patent Spontaneous unlabored respirations Mental status nausea Vomiting Anesthesia Postop Eval I: Fluid Summary Crystalloid volume administer (ml) Colloids volume administered ( ml) Blood Product volume administered (ml) Total IV fluid infused Anesthesia Postop Eval I: Summary Notes Anesthesia Complication Anesthesia Complication Comment: Post-operative progress note Anesthesia: Postop Eval II Evaluation Mental status: Awake and Calm Pain Level: 2 nausea: No Vomiting: No Complications Anesthesia Complication: No
--- NOTE | 2024-06-16 15:16 | PCM.POST.ANE ---
Anesthesia: Postop Eval I Current Vital Signs Temperature: 97.4 F Pulse Rate: 94 Blood Pressure: 111/49 Respiratory Rate: 16 Pulse Ox: 99 Oxygen Delivery Method: Room Air Assessment Airway patent: No Spontaneous unlabored respirations: No Mental status: Awake and Calm nausea: No Vomiting: No Anesthesia Complication: No Fluid Hydration Crystalloid volume administer (ml): 500 Total IV fluid infused: 500 Progress Note Anesthesia document: Postop Eval 1 completed: Yes
--- NOTE | 2024-06-16 15:17 | POSTOPAN2_ITS ---
Anesthesia Postop Eval I Sum Postop Eval Completion status Anesthesia document: Postop Eval 1 completed: Yes Anesthesia Postop Eval I Summary Anesthesia Postop Eval I Summary: Anesthesia Postop Eval I: Assessment Summary Airway patent No 06/16/24 15:17 SCIENTIFIC DIRECTOR.MDOT Spontaneous unlabored No 06/16/24 15:17 SCIENTIFIC DIRECTOR.MDOT respirations Mental status Awake,Calm 06/16/24 15:17 SCIENTIFIC DIRECTOR.MDOT nausea No 06/16/24 15:17 SCIENTIFIC DIRECTOR.MDOT Vomiting No 06/16/24 15:17 SCIENTIFIC DIRECTOR.MDOT Anesthesia Postop Eval I: Fluid Summary Crystalloid volume administer 500 06/16/24 15:17 SCIENTIFIC DIRECTOR.MDOT (ml) Colloids volume administered ( ml) Blood Product volume administered (ml) Total IV fluid infused 500 06/16/24 15:17 SCIENTIFIC DIRECTOR.MDOT Anesthesia Postop Eval I: Summary Notes Anesthesia Complication No 06/16/24 15:17 SCIENTIFIC DIRECTOR.MDOT Anesthesia Complication Comment: Post-operative progress note Anesthesia: Postop Eval II Evaluation Mental status: Awake and Calm Pain Level: 2 nausea: No Vomiting: No Complications Anesthesia Complication: No
--- NOTE | 2024-06-16 15:17 | PCM.POSTANE2 ---
Anesthesia Postop Eval I Sum Postop Eval Completion status Anesthesia document: Postop Eval 1 completed: Yes Anesthesia Postop Eval I Summary Anesthesia Postop Eval I Summary: Anesthesia Postop Eval I: Assessment Summary Airway patent No 06/16/24 15:17 SUPPLY CHAIN INTERN.MDOT Spontaneous unlabored No 06/16/24 15:17 SUPPLY CHAIN INTERN.MDOT respirations Mental status Awake,Calm 06/16/24 15:17 SUPPLY CHAIN INTERN.MDOT nausea No 06/16/24 15:17 SUPPLY CHAIN INTERN.MDOT Vomiting No 06/16/24 15:17 SUPPLY CHAIN INTERN.MDOT Anesthesia Postop Eval I: Fluid Summary Crystalloid volume administer 500 06/16/24 15:17 SUPPLY CHAIN INTERN.MDOT (ml) Colloids volume administered ( ml) Blood Product volume administered (ml) Total IV fluid infused 500 06/16/24 15:17 SUPPLY CHAIN INTERN.MDOT Anesthesia Postop Eval I: Summary Notes Anesthesia Complication No 06/16/24 15:17 SUPPLY CHAIN INTERN.MDOT Anesthesia Complication Comment: Post-operative progress note Anesthesia: Postop Eval II Evaluation Mental status: Awake and Calm Pain Level: 2 nausea: No Vomiting: No Complications Anesthesia Complication: No
--- NOTE | 2024-06-16 15:47 | DCINST_ITS ---
Discharge Instructions Diet Discharge Diet: No restrictions Activity Discharge Activity: Return to Normal Activity Weight Bearing Status: Full weight bearing Follow Up Care Test Results: Test results from this visit will be discussed in further detail at your follow- up appointment, if applicable. Discharge Plan Admission Admit Date/Time: 06/12/24 17:23 Primary Reason for Your Visit: L1-L2 herniated disc Attending Provider: Ronal Marr Primary Care Provider: Markus Roach Consulting Providers: Ta Cardenas; Clayton Galvez; Blaine Oden Instructions Additional Instructions / Restrictions: Follow up with your pain management physician within the next two weeks Discharge Orders/Prescriptions Prescriptions: New prednisone 10 mg tablet 20 mg PO BID Qty: 27 0RF Rx Instructions: two twice a day for 3 days, then three once a day for three days, then two per day for three days, then stop Continued losartan 25 mg tablet 25 mg PO DAILY atorvastatin 20 mg tablet 20 mg PO QHS omega-3 fatty acids-fish oil [Fish Oil] 360-1,200 mg capsule 1 cap PO DAILY acetaminophen 500 mg tablet 1,000 mg PO TID [id number] acid-lutein [Adult Multivitamin (w-lutein)] 200-137.5 mcg tablet,chewable 1 tab PO DAILY hydrochlorothiazide 25 MG tablet 25 mg PO DAILY lutein 6 MG capsule 6 mg PO DAILY cyclobenzaprine 5 mg tablet 10 mg PO QHS PRN (Reason: LEG CRAMPS) sertraline 100 mg tablet 100 mg PO QHS Patient Comments: TAKE 1 TABLET BY MOUTH ONCE DAILY cholecalciferol (vitamin D3) [Vitamin D3] 125 mcg (5,000 unit) tablet 125 mcg PO DAILY vitamin A 2,400 mcg capsule 10,000 unit PO DAILY lidocaine [Lidocare] 4 % adhesive patch,medicated 1 patch topical DAILY PRN (Reason: pain) Rx Instructions: may leave on for up to 12 hrs sennosides-docusate sodium [Stool Softener-Stimulant Laxat] 8.6-50 mg Tablet 2 tab PO BID 3 Days Qty: 12 0RF Rx Instructions: Take until first bowel movement, then as needed tramadol 50 mg Tablet 50 - 100 mg PO Q6H PRN PRN (Reason: Pain Score 4-10) Qty: 0 0RF sotalol [Sotalol AF] 80 mg tablet 40 mg PO BID Qty: 180 3RF Referrals / Follow Up: Ta Cardenas MD [Med Staff - Active Staff] - See Referral Note (as directed) Markus Roach MD [Primary Care Provider] - Disposition Disposition (needs filled in before D/C Order can be placed): Home Health Service
--- NOTE | 2024-06-16 15:58 | DS.PCM_ITS ---
Providers Date of Admission: 06/12/24 Date of Discharge: 06/16/24 Primary Care Physician: Markus Roach MD Consultations 06/15/24 07:43 Consult: Orthopedics Routine Consulting Provider: Ta Cardenas Reason for Consult: acute on chronic low back pain, MRI L-spine done, appreciate recs EMERGENT Consult: No MD Notified: Yes Date Notified: 06/15/24 Time Notified: 08:10 Method of Notification: Text 06/15/24 12:25 Consult: Pain Management Routine Consulting Provider: Clayton Galvez Reason for Consult: acute on chronic low back pain, L1-2 disc dx, ortho recs for injection EMERGENT Consult: No MD Notified: Yes Date Notified: 06/15/24 Time Notified: 12:36 Method of Notification: Answering Service Reason For Visit: WORSENING DEBILITY Diagnosis Discharge Diagnosis (1) Debility: Status: Acute Code(s): R53.81 - Other malaise (2) Intractable abdominal pain: Status: Acute Code(s): R10.9 - Unspecified abdominal pain (3) Osteoarthritis: Status: Acute Code(s): M19.90 - Unspecified osteoarthritis, unspecified site (4) Acute UTI: Status: Acute Code(s): N39.0 - Urinary tract infection, site not specified Plan 1. L1-L2 left-sided disc herniation #2 degenerative disc disease lumbar spine #3 acute debility secondary to #1 and #2 #4 bacteriuria #5 chronic spinal stenosis No evidence for urinary tract infection or cystitis Medications at Discharge Home Medications hydrochlorothiazide 25 mg tablet 25 mg PO DAILY BP 06/22/19 lutein 6 mg capsule 6 mg PO DAILY SUPPLEMENT 06/22/19 acetaminophen 500 mg tablet 1,000 mg PO TID 10/17/22 atorvastatin 20 mg tablet 20 mg PO QHS 10/17/22 losartan 25 mg tablet 25 mg PO DAILY 10/17/22 omega-3 fatty acids-fish oil 360 mg-1,200 mg capsule (Fish Oil) 1 cap PO DAILY 10/17/22 cyclobenzaprine 5 mg tablet 10 mg PO QHS PRN LEG CRAMPS 02/03/23 cholecalciferol (vitamin D3) 125 mcg (5,000 unit) tablet (Vitamin D3) 125 mcg PO DAILY 06/25/23 lidocaine 4 % topical patch (Lidocare) 1 patch topical DAILY PRN pain 06/25/23 sertraline 100 mg tablet 100 mg PO QHS 06/25/23 vitamin A 2,400 mcg capsule 10,000 unit PO DAILY 06/25/23 multivit with min-folic acid-lutein 200 mcg-137.5 mcg chewable tablet (Adult Multivitamin (w-lutein)) 1 tab PO DAILY 06/30/23 sennosides 8.6 mg-docusate sodium 50 mg tablet (Stool Softener-Stimulant Laxative) 2 tab PO BID 3 days #12 tabs 07/16/23 tramadol 50 mg tablet 50 - 100 mg (1 - 2 x 50 mg) PO Q6H PRN PRN Pain Score 4-10 #0 tabs 07/16/23 sotalol 80 mg tablet (Sotalol AF) 40 mg (1/2 x 80 mg) PO BID #180 tabs 11/19/23 prednisone 10 mg tablet 20 mg (2 x 10 mg) PO BID #27 tabs 06/16/24 Hospital Course Operations None Procedures - (Left L1-L2 transforaminal epidural steroid injection) Summary of Care Provided Minutes Spent on Discharge: 30 Hospital Course: This 73-year-old white female was seen in the emergency room at [facility] with complaints of left lower quadrant abdominal pain x 1 month, patient felt it was coming from her chronic low back pain or her left hip. Patient been seen a week ago at an outside hospital and she had a CT scan of her abdomen which was unremarkable according to the patient. Workup in the ER included a CBC which was unremarkable, chemistry panel was remarkable for BUN of 28, and urinalysis showed +1 bacteria, 0-5 RBCs and WBCs were noted. CT scan was reviewed from June 06, 2024, there was no acute pathology noted. Ambulation of the patient was attempted in the emergency room but she could only take a few steps and then had severe pain. Secondary to her debility, patient was admitted to the hospital on MedSurg 3, she was given an IV antibiotic for presumed UTI-this examiner did not feel that she had a UTI however. Urine culture did not grow out any urinary pathogens-mixed gram-positive and negative organisms were noted. Patient underwent an MRI of the lumbar spine which showed a disc protrusion at L1-L2, it also showed severe spinal canal stenosis at L3- L4. Multilevel degenerative disc disease was noted in the lumbar spine. Patient was seen in consultation by pain management who recommended an epidural injection, patient underwent an L1-L2 transforaminal steroid injection on 06/16/2024. On 06/16/2024, patient was seen and examined: On examination she appeared in good health and spirits, she does not appear to be in any distress. Vital signs as documented. Skin warm and dry and without overt rashes. Neck without JVD, thyroid appears normal, trachea is midline, neck is supple. Lungs clear, normal air movement was noted. Heart exam notable for regular rhythm, normal sounds and absence of murmurs, rubs or gallops. Abdomen unremarkable and without evidence of organomegaly, masses, or abdominal aortic enlargement, bowel sounds are present in all 4 quadrants, no abdominal tenderness was noted. Extremities nonedematous, no cyanosis was noted, no clubbing was noted. Neuro: Cranial nerves II through XII are grossly intact, no focal motor deficits were noted, sensation to light touch and pinprick is intact, motor exam 5/5 throughout. Psych: Patient is alert and oriented x3, she does not appear anxious or depressed, she does not appear agitated. Patient was felt to be stable for discharge home on 06/16/2024. Weight / BMI Weight Weight: 100.698 kg Body Mass Index (BMI) 35.8 ABG / Lab / Microbiology Data 06/16/24 06:03 06/16/24 06:03 Laboratory: Laboratory Results - last 24 hr 06/16/24 06:03: WBC 4.7, RBC 4.15 L, Hgb 12.1, Hct 38.7, MCV 93.3, MCH 29.2, M CHC 31.3 L, RDW Std Deviation 48.0 H, RDW Coeff of Pat 14.0, Plt Count 167, MPV 9.1, Immature Gran % (Auto) 0.600, Neut % (Auto) 56.0, Lymph % (Auto) 29.2, [place] % (Auto) 9.7, Eos % (Auto) 3.9, Baso % (Auto) 0.6, Absolute Neuts (auto) 2.6, Absolute Lymphs (auto) 1.36, Nucleated RBC % 0, Sodium 139, Potassium 3.9, Chloride 103, Carbon Dioxide 30.0, Anion Gap 6, BUN 24 H, Creatinine 0.81, Estim Creat Clear Calc 74.08, Est GFR (MDRD) Af Amer 89, Est GFR (MDRD) Non-Af 74, B UN/Creatinine Ratio 29.7 H, Glucose 111 H, Calcium 9.8 Microbiology: Microbiology 06/12/24 15:24 Urine, Clean Catch Urine Culture - Final Mixed Gram Pos & Gram Neg Org D/C Instructions Discharge Diet: No restrictions Weight Bearing Status: Full weight bearing Meaningful Use Info Meaningful Use Meaningful Use Diagnoses (Choose all that apply): None applicable Ischemic Stroke Statin Dosing Therapy Reference: STATIN DOSE THERAPY REFERENCE: * Patients > 75 years receive moderate or high dose statin therapy. * Patients 75 years or YOUNGER should receive HIGH intensity statin dose unless contraindicated. You will be required to document reason for non-treatment if statin daily dose does not meet guidelines. HIGH DOSE STATIN THERAPY DAILY Atorvastatin > than or = to 40 mg Rosuvastatin > than or = to 20 mg Amlodipine + Atorvastatin > than or = to 2.5/40 mg Ezetimibe + Simvastatin 10/80 mg Simvastatin 80mg Discharge Plan Admission Admit Date/Time: 06/12/24 17:23 Primary Reason for Your Visit: L1-L2 herniated disc Attending Provider: Ronal Marr Primary Care Provider: Markus Roach Consulting Providers: Ta Cardenas; Clayton Galvez; Blaine Oden Instructions Additional Instructions / Restrictions: Follow up with your pain management physician within the next two weeks Discharge Orders/Prescriptions Prescriptions: New prednisone 10 mg tablet 20 mg PO BID Qty: 27 0RF Rx Instructions: two twice a day for 3 days, then three once a day for three days, then two per day for three days, then stop Continued losartan 25 mg tablet 25 mg PO DAILY atorvastatin 20 mg tablet 20 mg PO QHS omega-3 fatty acids-fish oil [Fish Oil] 360-1,200 mg capsule 1 cap PO DAILY acetaminophen 500 mg tablet 1,000 mg PO TID [id number] acid-lutein [Adult Multivitamin (w-lutein)] 200-137.5 mcg tablet,chewable 1 tab PO DAILY hydrochlorothiazide 25 MG tablet 25 mg PO DAILY lutein 6 MG capsule 6 mg PO DAILY cyclobenzaprine 5 mg tablet 10 mg PO QHS PRN (Reason: LEG CRAMPS) sertraline 100 mg tablet 100 mg PO QHS Patient Comments: TAKE 1 TABLET BY MOUTH ONCE DAILY cholecalciferol (vitamin D3) [Vitamin D3] 125 mcg (5,000 unit) tablet 125 mcg PO DAILY vitamin A 2,400 mcg capsule 10,000 unit PO DAILY lidocaine [Lidocare] 4 % adhesive patch,medicated 1 patch topical DAILY PRN (Reason: pain) Rx Instructions: may leave on for up to 12 hrs sennosides-docusate sodium [Stool Softener-Stimulant Laxat] 8.6-50 mg Tablet 2 tab PO BID 3 Days Qty: 12 0RF Rx Instructions: Take until first bowel movement, then as needed tramadol 50 mg Tablet 50 - 100 mg PO Q6H PRN PRN (Reason: Pain Score 4-10) Qty: 0 0RF sotalol [Sotalol AF] 80 mg tablet 40 mg PO BID Qty: 180 3RF Referrals / Follow Up: Ta Cardenas MD [Med Staff - Active Staff] - See Referral Note (as directed) Markus Roach MD [Primary Care Provider] - Disposition Disposition (needs filled in before D/C Order can be placed): Home Health Service Charges/Coding Visit Charges Inpatient E&M: 35356 Disch Hosp
--- NOTE | 2024-06-16 16:19 | CASEMGMT ---
YU PATRICIA NOTE: Pt being discharged. YU PATRCIIA to room. Pt sitting on edge of bed. She states her back pain is much better. She feels safe discharging home. She was made aware [facility] able to accept her and they will be notified she is discharging home today. [facility] contact information is documented in [facility] and to print out with pt's dc instructions. Pt made aware [facility] to contact her for SOC date. She denies having any further dc needs/concerns. Omar ADAMSON RN, CM
--- NOTE | 2024-06-16 16:19 | CASEMGMT ---
Discharge Planning Discharge instructions sent to [facility] via [facility]. Katelyn Rivas DC Planning Asst.
[2024-06-16] MEDS: traMADol 50 MG Tablet PO (16:25)
[2024-06-16] MEDS: Acetaminophen 325 MG Tablet 650 MG PO (16:25)
--- NOTE | 2024-06-16 17:20 | PCM.OPRPT ---
Report of Operation Date of Procedure: 06/16/24 Pre-Operative Diagnosis: Lumbar radiculopathy Post-Operative Diagnosis: Same Surgery/Procedure Performed:: Left L1-L2 Transforaminal Epidural Steroid Injection Surgeon: Seven Lau steward/stewardess railroad dining car: None Type of Anesthesia: MAC (Propofol infusion. She was still responsive to questions throughout procedure.) Special Medications: none Specimen's removed: none Drains: n/a Estimated Blood Loss (mL): NIL Description of Procedure: Pre-Procedure Review:?The initial consultation report has been reviewed and there are no changes with regard to the patient?s medical, social history and review of systems. The patient states that the symptoms are stable and unchanged since the last visit. My findings on physical examination today are grossly consistent with those documented on the previous follow-up note, at which time today?s procedure was scheduled. I will proceed today with the scheduled procedure and see the patient back for follow-up. The patient states understanding of the plan, and is in agreement. Description:?The history and physical examination were reviewed to ensure accuracy, and the details of the procedure were reviewed with the patient who understands all of the risks and benefits involved. All questions have been answered, and the patient is aware of all alternative therapeutic options. Informed consent was obtained, and the patient was directed to the procedure room. A ?time-out? with two active identifiers of the patient, the procedure, and the site was performed. The patient was positioned prone on the fluoroscopy table. All pressure points were padded and checked routinely. The patient?s blood pressure, heart rate, pulse oximetry, and level of consciousness were monitored throughout. The back was widely sterilized using Betadine solution and was draped in a sterile manner. The L1-L2 transforaminal opening was identified using AP and oblique fluoroscopy. 1% lidocaine was used to make a skin wheel directly over a point inferior and lateral to the inferior-lateral portion of the left transverse process. The subcutaneous tissue was then anesthetized, and a 22 g spinal needle with a 30-degree bend at the tip was advanced in a target fashion using fluoroscopic guidance in the AP/oblique view. The needle was advanced into the transforaminal opening. Proper needle position was then confirmed by multiple fluoroscopic views. An aspiration test was negative for blood, CSF, and other fluids. Thereafter, 1 mL of contrast was slowly injected (without incident) under live fluoroscopy and imaging revealed medial spread of the dye into the epidural space. No vascular uptake was noted. The patient confirmed that she felt some sensation along the painful nerve root. This resolved without sequelae. 40mg of kenalog and 1ml of 0.25% bupivacaine was then slowly injected with ease and without incident. The needle was removed. The procedure was performed uneventfully and was well-tolerated by the patient. The patient was transferred to an observation room and recovered without incident. No adverse events were noted, and the patient was discharged home in stable condition. All potential side effects and adverse events have been discussed with the patient. The patient has been instructed to call my clinic at the first sign of an adverse event, or with any other concerning symptoms. A follow-up appointment is to be made in a few weeks in our office. In recovery, she noted improvement in her pain. She was moving all extremities. All questions were answered. Complications None
== END 2024-06-16 16:47 | disposition home health service (06) ==
LOC: ED 17:31 → MS3 17:37
PROVIDERS: Anesthesiology; Nurse Practitioner; Admitting Provider Hospitalist; Emergency Provider Emergency Medicine; PCP Family Medicine; Visit Provider Internal Medicine
PROC: 3E0S3BZ Introduction of Anesthetic Agent into Epidural Space, Percutaneous Approach (ICD-10-PCS; CPT 62322; principal; 2024-06-16 13:55)
DX: N39.0 Urinary tract infection, site not specified (principal); I48.0 Paroxysmal atrial fibrillation; E66.01 Morbid (severe) obesity due to excess calories; Z68.41 Body mass index [BMI] 40.0-44.9, adult; E11.9 Type 2 diabetes mellitus without complications; M19.90 Unspecified osteoarthritis, unspecified site; F41.9 Anxiety disorder, unspecified; F32.A Depression, unspecified; I10 Essential (primary) hypertension; M51.16 Intervertebral disc disorders with radiculopathy, lumbar region; M41.56 Other secondary scoliosis, lumbar region; R53.81 Other malaise; M79.7 Fibromyalgia; E78.5 Hyperlipidemia, unspecified; Z79.899 Other long term (current) drug therapy
CPT/HCPCS: 36415; 64483; 72020; 72148; 74018; 80048; 80053; 81001; 83605; 83690; 85025; 85027; 87086; 87088; 93005; 94668; 96365; 96366; 96372; 96375; 97162; 97166; 97530; 97535; 99221; 99284; J7040; J7120; A4216; G0378; J2405

== ENCOUNTER → 2024-08-01 | Outpatient (CLI) | payer MEDICARE, MEDICAID, SELFPAY ==
--- NOTE | 2024-08-01 12:58 | ART_ITS ---
Reason For Study: Claudication Procedure A bilateral lower extremity continuous wave Doppler with analog waveform analysis and ankle brachial indexes. Left Segmental Pressures Left brachial= 152mmHg. Left posterior tibial artery = 175mmHg. Left dorsalis pedis artery = 160mmHg. Left digit = 122 mmHg. The left posterior tibial artery waveforms are triphasic. The left dorsalis pedis waveforms are triphasic. Right Segmental Pressures Right brachial= 150mmHg. Right posterior tibial artery = 166mmHg. Right dorsalis pedis artery = 175mmHg. Right digit = 113 mmHg. The right posterior tibial artery waveforms are triphasic. The right dorsalis pedis waveforms are triphasic. Indices The right ankle brachial index by the posterior tibial artery is 1.09. The right ankle brachial index by the dorsalis pedis is 1.15. The right digital-brachial index is 0.74. The left ankle brachial index by the posterior tibial artery is 1.15. The left ankle brachial index by the dorsalis pedis is 1.05. The left digital-brachial index is 0.80. VL/Ankle Brachial Index Interpretation Summary Triphasic Doppler waveforms are noted at ankle level bilaterally. Pulse-volume recordings appear diminished at digital level bilaterally, but satisfactory at ankle level bilate rally. Resting ankle- brachial indices are normal bilaterally. Digital-brachial indices are normal bi laterally. There is no evidence of significant arterial occlusive disease in the lower ext remities bilaterally. Ordering Physician: Markus Roach Referring Physician: MARKUS ROACH MD Performed By: Enoch Ivan, RVT
== END | disposition home or self-care (01) ==
PROVIDERS: PCP Family Medicine; Referring Provider Family Medicine; Visit Provider Family Medicine
DX: I73.9 Peripheral vascular disease, unspecified (principal)
CPT/HCPCS: 93922